=== PATIENT | female | born 1945 | race Caucasian/White ===

== ENCOUNTER → 2016-12-04 | Outpatient (CLI) | payer OTHER, MEDICARE ==
[~2016-12-04] MED LIST: ADVIN25050 INH; ATOR-22 PO; ATV5 PO; BNV150 PO; CHOL2000 PO; CITA10TA4 PO; CITA40TA4 PO; CLB200 PO; CLC100 PO; CLTP PO; CMBIN INH; GABA-113 PO; GABA1CAP4 PO; GADAVIST IV PRN; HYDR-5688 PO; IBUP-1050 PO; LYR50 PO; MDR4 PO; MELO7.5T5 PO; MTR/600 PO; MULT-506 PO; MULTTAB5 PO; NRN300 PO; NRN600 PO; NXM/40 PO; OMEG10007 PO; OXYC-57 PO; PRCUNK PO; PRED10TA; PRLSR20 PO; TIOTCAP INH; ZCR40 PO
--- NOTE | 2016-12-04 16:45 | DIAGNOSTIC IMAGING REPORT ---
MRI LUMBAR SPINE COMBINATION CLINICAL HISTORY: Extreme low back pain with left hip radiculopathy. TECHNIQUE: Sagittal and axial T1, T2 and STIR images were obtained. Images were obtained before and after the administration of 5 cc of intravenous Gadavist. COMPARISON STUDY: No previous studies for comparison. OBSERVATIONS: The vertebral bodies and posterior elements appear intact. There is no abnormal bony signal present to suggest a marrow replacement process. L1-2: No disc protrusions or extrusions. No evidence of spinal canal or neural foraminal compromise. L2-3: No disc protrusions or extrusions. No evidence of spinal canal or neural foraminal compromise. L3-4: There is a mild circumferential disc bulge. There is no significant spinal or foraminal stenosis L4-5: There is a mild circumferential disc bulge. There is minor triangular spinal canal narrowing. L5-S1: There is minor retrolisthesis of L5 on S1. There is a small central disc protrusion. There is no significant foraminal narrowing. The conus medullaris and cauda equina appear normal. 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 Postcontrast images reveal no pathologically enhancing lesions IMPRESSION: 1. Minor retrolisthesis of L5 on S1. Small central disc protrusion 2. Mild circumferential disc bulge at the L4-5 level. Electronically signed by: Wisam Martel M.D. 12/04/2016 4:44 PM Dictated Date/Time: 12/04/2016 4:40 PM
== END | disposition home or self-care (01) ==
LOC: C.MRI 14:51
PROVIDERS: ATTEND Orthopaedic Surgery Orthopaedic Surgery of the Spine
DX: M51.27 Other intervertebral disc displacement, lumbosacral region (principal)

== ENCOUNTER 2016-12-07 11:44 | Inpatient (IN) | payer OTHER, MEDICARE ==
[~2016-12-07] VITALS: Ht 160 cm; Wt 50.0 kg
[2016-12-07] VITALS (7 sets, daily range): BP systolic 128–135; BP diastolic 54–73; PULSE 71–96; TEMP 36.5–36.8; O2SAT 94–100; Ht 160 cm; Wt 50.0 kg
[~2016-12-07 11:44] MED LIST changes: -CHOL2000 PO; -CITA10TA4 PO; -CITA40TA4 PO; -GABA1CAP4 PO; -GADAVIST IV PRN; -HYDR-5688 PO; -IBUP-1050 PO; -LYR50 PO; -MDR4 PO; -MELO7.5T5 PO; -MTR/600 PO; -MULTTAB5 PO; -NRN300 PO; -NRN600 PO; -OXYC-57 PO; -PRED10TA; -PRLSR20 PO; -ZCR40 PO
[2016-12-07] MEDS ORDERED: SODIUM CHLORIDE 0.9% 1000ML 1,000 ML IV STA (11:58)
[2016-12-07] MEDS ORDERED: ONDANSETRON INJ 2 MG/ML 2 ML VIAL IV STA (11:58)
[2016-12-07] MEDS: MoRPHine SULFATE 4 MG/ML 1 ML CARP\\VIAL IV PRN ×2 (12:05→12:42)
--- NOTE | 2016-12-07 12:07 | EMERGENCY ROOM VISIT NOTE ---
History Report prepared by Garrett: Navjot Maharaj Under the Supervision of: Dr. Sal Huddleston D.O. First contact with patient: 11:51 Chief Complaint: SHORTNESS OF BREATH Stated Complaint: BACK PAIN, PAIN DOWN LEGS, SOB History of Present Illness The patient is a 71 year old female who presents to the Emergency Room with complaints of persistent severe lower back pain for the past two months. The pain radiates down her left leg and the left leg is also weak. The patient is here with shortness of breath secondary to her pain. The patient has had trouble eating, drinking, and sleeping secondary to pain. She has had intermittent chest tightness. She denies urinary symptoms. The patient was given a prescription of 5 mg Percocet from her PCP. She had an MRI three days ago with Quinn Degroot. The patient has a history of COPD and wears oxygen most of the time. She has breathing treatments at home. She denies cancer history. The patient has had lower back surgery with Dr. Downey. The patient does occasionally smoke. Source of History: patient Onset: two months Position: back (lower) Symptom Intensity: severe Timing: other (persistent) Associated Symptoms: + SOB, + chest pain, No urinary symptoms Review of Systems See HPI for pertinent positives & negatives. A total of 10 systems reviewed and were otherwise negative. Past Medical & Surgical Medical Problems: (1) COPD (chronic obstructive pulmonary disease) Surgical Problems: (1) Previous back surgery Family History Patient reports no known family medical history. Social History Smoking Status: Current Some Day Smoker Housing Status: lives with family Current/Historical Medications Scheduled Cholecalciferol (Vitamin D3), 1 CAP PO DAILY Citalopram Hydrobromide (Citalopram Hydrobromide), 1 TAB PO DAILY Gabapentin (Gabapentin), 1 CAP PO BID Meloxicam (Mobic), 7.5 MG PO DAILY Multiple Vitamins W/ Minerals (Centrum), 1 TAB PO DAILY Omeprazole (Prilosec), 20 MG PO DAILY Simvastatin (Simvastatin), 1 TAB PO HS Scheduled PRN Ibuprofen (Ibuprofen), 1 TAB PO Q6 PRN for Pain Oxycodone/Acetaminophen 5MG/325MG (Percocet 5MG/325MG), 1 TABLET PO Q6H PRN for Pain Allergies Coded Allergies: No Known Allergies (Verified , NONE, 3/2/17) Physical Exam Vital Signs Date Time Temp Pulse Resp B/P Pulse Ox O2 Delivery O2 Flow Rate FiO2 12/07/16 13:33 88 22 135/54 95 Nasal Cannula 3.0 12/07/16 12:25 89 12/07/16 12:15 97 Nasal Cannula 3.0 12/07/16 11:47 36.5 113 24 165/80 89 3.0 Physical Exam GENERAL: Patient is awake, alert, very anxious and uncomfortable appearing, appears to be in significant pain. EYES: The conjunctivae are clear. The pupils are round and reactive. EARS, NOSE, MOUTH AND THROAT: The nose is without any evidence of any deformity. Mucous membranes are moist tongue is midline NECK: The neck is nontender and supple. RESPIRATORY: Lung sounds are diminished throughout with expiratory wheezing in both chu, significant tachypnea and conversational dyspnea noted. Suprasternal retractions noted. CARDIOVASCULAR: Tachycardic but regular no definite murmur noted to auscultation. GASTROINTESTINAL: The abdomen is soft. Bowel sounds are present in all quadrants. Abdomen is nontender BACK: Significant lumbar tenderness to palpation, range of motion appeared limited secondary to severe pain. MUSCULOSKELETAL/EXTREMITIES: There is no evidence of gross deformity full range of motion is noted in the hips and shoulders SKIN: There is no obvious evidence of any rash. There are no petechiae, pallor or cyanosis noted. NEUROLOGIC: Patient is awake alert and oriented x3, patellar reflex 2+ bilaterally, Achilles tendon reflex absent bilaterally, great toe raise symmetric. Medical Decision & Procedures ER Provider Diagnostic Interpretation: X-ray results as stated below per interpretation by me and the radiologist. CHEST ONE VIEW PORTABLE CLINICAL HISTORY: Shortness of breath. COMPARISON STUDY: Chest radiograph November 12, 2008. FINDINGS: Lung volumes are normal. No pleural effusion is present. No consolidation is identified to suggest pneumonia. There is no evidence of pulmonary edema. Cardiomediastinal silhouette is normal. Equivocal small right apical pneumothorax is probably artifactual. IMPRESSION: Equivocal small right apical pneumothorax which is likely artifactual. If persistent symptoms, short-term radiographic follow up is recommended. Electronically signed by: Ryan Joel M.D. 12/07/2016 1:07 PM Dictated Date/Time: 12/07/2016 1:02 PM Laboratory Results 12/07/16 11:55 Red Blood Count 4.27, Mean Corpuscular Volume 95.8, Mean Corpuscular Hemoglobin 31.6, Mean Corpuscular Hemoglobin Concent 33.0, Mean Platelet Volume 10.3, Neutrophils (%) (Auto) 75.6, Lymphocytes (%) (Auto) 18.1, Monocytes (%) (Auto) 5.8, Eosinophils (%) (Auto) 0.2, Basophils (%) (Auto) 0.1, Neutrophils # (Auto) 7.66, Lymphocytes # (Auto) 1.84, Monocytes # (Auto) 0.59, Eosinophils # (Auto) 0.02, Basophils # (Auto) 0.01 12/07/16 11:55 Test 12/07/16 11:55 White Blood Count 10.14 K/uL (4.8-10.8) Red Blood Count 4.27 M/uL (4.2-5.4) Hemoglobin 13.5 g/dL (12.0-16.0) Hematocrit 40.9 % (37-47) Mean Corpuscular Volume 95.8 fL (80-100) Mean Corpuscular Hemoglobin 31.6 pg (25-34) Mean Corpuscular Hemoglobin Concent 33.0 g/dl (32-36) Platelet Count 323 K/uL (130-400) Mean Platelet Volume 10.3 fL (7.4-10.4) Neutrophils (%) (Auto) 75.6 % Lymphocytes (%) (Auto) 18.1 % Monocytes (%) (Auto) 5.8 % Eosinophils (%) (Auto) 0.2 % Basophils (%) (Auto) 0.1 % Neutrophils # (Auto) 7.66 K/uL (1.4-6.5) Lymphocytes # (Auto) 1.84 K/uL (1.2-3.4) Monocytes # (Auto) 0.59 K/uL (0.11-0.59) Eosinophils # (Auto) 0.02 K/uL (0-0.5) Basophils # (Auto) 0.01 K/uL (0-0.2) RDW Standard Deviation 48.6 fL (36.4-46.3) RDW Coefficient of Variation 13.8 % (11.5-14.5) Immature Granulocyte % (Auto) 0.2 % Immature Granulocyte # (Auto) 0.02 K/uL (0.00-0.02) Prothrombin Time 10.8 SECONDS (9.0-12.0) Prothromb Time International Ratio 1.0 (0.9-1.1) Activated Partial Thromboplast Time 26.3 SECONDS (21.0-31.0) Partial Thromboplastin Ratio 1.0 Anion Gap 7.0 mmol/L (3-11) Est Creatinine Clear Calc Drug Dose 59.0 ml/min Estimated GFR () 101.7 Estimated GFR (Non- 87.8 BUN/Creatinine Ratio 21.0 (10-20) Calcium Level 9.7 mg/dl (8.5-10.1) Total Bilirubin 0.7 mg/dl (0.2-1) Direct Bilirubin 0.2 mg/dl (0-0.2) Aspartate Amino Transf (AST/SGOT) 16 U/L (15-37) Alanine Aminotransferase (ALT/SGPT) 21 U/L (12-78) Alkaline Phosphatase 70 U/L (45-117) Total Creatine Kinase 152 U/L (26-192) Creatine Kinase MB 2.4 ng/ml (0.5-3.6) Creatine Kinase MB Ratio 1.6 (0-3.0) Troponin I < 0.015 ng/ml (0-0.045) Total Protein 9.0 gm/dl (6.4-8.2) Albumin 4.0 gm/dl (3.4-5.0) Lipase 85 U/L (73-393) Laboratory results per my review. Medications Administered Medications (Trade) Dose Ordered Sig/Peyman Route Start Time Stop Time Status Last Admin Dose Admin Sodium Chloride (Nss 1000ml) 1,000 ml @ 999 mls/hr Q1H1M STAT IV 12/07/16 11:58 12/07/16 12:58 DC 12/07/16 12:04 999 MLS/HR Ondansetron HCl (Zofran Inj) 4 mg NOW STAT IV 12/07/16 11:58 12/07/16 12:00 DC 12/07/16 12:05 4 MG Morphine Sulfate (MoRPHine SULFATE INJ) 4 mg Q15M PRN IV 12/07/16 12:00 12/07/16 14:59 DC 12/07/16 12:42 4 MG ECG Indication: SOB/dyspnea Rate (beats per minute): 95 Rhythm: normal sinus Findings: no acute ischemic change, no ectopy Comparison ECG Date: 12 Nov 2008 Change: no significant change ED Course 1155: The patient was evaluated in room A4b. A complete history and physical examination were performed. 1158: Zofran 4 mg Iv, NSS 1000 ml @ 999 mls/hr. 1200: Morphine Sulfate 4 mg IV. 1221: [facility] The [facility] will be evaluated. Medical Decision Prior records/ancillary studies reviewed. Triage Nursing notes reviewed. Additional history obtained from family. The patient's history was concerning for back pain. Differential diagnosis: Etiologies such as musculoskeletal, disc herniation, fracture, aortic disease, metastatic disease, cord compression, discitis, infection, renal colic, gastrointestinal, acute exacerbation of chronic back pain, sciatica, cauda equina, as well as others were entertained. The patient is a 71-year-old female who presented to the emergency department for an evaluation of severe back pain and difficulty breathing. The patient has a history of COPD and states it when her back pain becomes very severe she has very significant shortness of breath issues. The patient was treated with a DuoNeb in the emergency department. She was also treated with IV fluids. She was also given IV pain medication. I discussed the patient's laboratory and radiographic studies with her. Her breathing significantly improved. I discussed the patient's condition with the [facility]. They have agreed to evaluate the patient in the emergency department for further management and disposition. Consults Time Called: 1215 Consulting Physician: Dr. Hazel [facility] Returned Call: 1221 1221: Spoke with Dr. Hazel [facility]. The patient will be evaluated. Impression Primary Impression: Severe low back pain Additional Impressions: Lumbar radiculopathy COPD exacerbation Scribe Attestation The scribe's documentation has been prepared under my direction and personally reviewed by me in its entirety. I confirm that the note above accurately reflects all work, treatment, procedures, and medical decision making performed by me. Departure Information Dispostion Being Evaluated By Hospitalist Referrals Arthur Srivastava M.D. (PCP) Patient Instructions My [facility] Problem Qualifiers
[2016-12-07 12:09] LABS: BASO % 0.1 %; BASO ABS # 0.01 K/uL (0-0.2); COMPLETE YES; EOS % 0.2 %; HEMATOCRIT 40.9 % (37-47); IG% 0.2 %; LYMPH % 18.1 %; LYMPH ABS # 1.84 K/uL (1.2-3.4); MEAN CELL VOLUME 95.8 fL (80-100); MEAN CORPUSCULAR HEMOGLOBIN 31.6 pg (25-34); MEAN PLATELET VOLUME 10.3 fL (7.4-10.4); MONO % 5.8 %; NEUT % 75.6 %; PLATELET COUNT 323 K/uL (130-400); RED BLOOD COUNT 4.27 M/uL (4.2-5.4); WHITE BLOOD COUNT 10.14 K/uL (4.8-10.8)
[2016-12-07 12:24] LABS: PROTHROMBIN TIME (PATIENT) 10.8 SECONDS (9.0-12.0)
[2016-12-07 12:29] LABS: ALT/SGPT 21 U/L (12-78); AST/SGOT 16 U/L (15-37); BLOOD UREA NITROGEN 15 mg/dl (7-18); CALCIUM 9.7 mg/dl (8.5-10.1); CARBON DIOXIDE 30 mmol/L (21-32); CHLORIDE 102 mmol/L (98-107); GLUCOSE 104 mg/dl (70-99); POTASSIUM 4.3 mmol/L (3.5-5.1); SODIUM 139 mmol/L (136-145)
[2016-12-07 12:34] LABS: ALKALINE PHOSPHATASE 70 U/L (45-117); CKMB/CK RATIO 1.6 (0-3.0)
[2016-12-07] MEDS ORDERED: ZCR40 PO (13:06)
[2016-12-07] MEDS ORDERED: PRLSR20 PO (13:06)
[2016-12-07] MEDS ORDERED: CITA10TA4 PO (13:06)
[2016-12-07] MEDS ORDERED: GABA1CAP4 PO (13:06)
[2016-12-07] MEDS ORDERED: OXYC-57 PO (13:06)
[2016-12-07] MEDS ORDERED: CHOL2000 PO (13:06)
[2016-12-07] MEDS ORDERED: MULTTAB5 PO (13:06)
[2016-12-07] MEDS ORDERED: MELO7.5T5 PO (13:06)
[2016-12-07] MEDS ORDERED: MTR/600 PO (13:07)
--- NOTE | 2016-12-07 13:08 | DIAGNOSTIC IMAGING REPORT ---
CHEST ONE VIEW PORTABLE CLINICAL HISTORY: Shortness of breath. COMPARISON STUDY: Chest radiograph November 12, 2008. FINDINGS: Lung volumes are normal. No pleural effusion is present. No consolidation is identified to suggest pneumonia. There is no evidence of pulmonary edema. Cardiomediastinal silhouette is normal. Equivocal small right apical pneumothorax is probably artifactual. IMPRESSION: Equivocal small right apical pneumothorax which is likely artifactual. If persistent symptoms, short-term radiographic follow up is recommended. Electronically signed by: Ryan Joel M.D. 12/07/2016 1:07 PM Dictated Date/Time: 12/07/2016 1:02 PM
[2016-12-07] MEDS ORDERED: ALUMINUM/MAGNESIUM/SIMETH (MAALOX MAX) 30 ML UDC PO PRN (14:00)
[2016-12-07] MEDS ORDERED: POLYETHYLENE (MIRALAX) 17 GM PACK PO PRN (14:00)
[2016-12-07] MEDS ORDERED: HydrALAZINE HCL 20 MG/ML VIAL IV. PRN (14:00)
[2016-12-07] MEDS ORDERED: MAGNESIUM HYDROXIDE SUSP 30 ML UDC PO PRN (14:00)
[2016-12-07] MEDS ORDERED: ACETAMINOPHEN 325 MG TAB PO PRN (14:00)
[2016-12-07] MEDS ORDERED: IBUPROFEN 600 MG TAB PO PRN (14:00)
[2016-12-07] MEDS ORDERED: MoRPHine SULFATE 2 MG/ML CARP IV PRN (14:00)
[2016-12-07] MEDS ORDERED: ALBUT/IPRATROP 3MG/0.5MG NEB 3 ML VIAL INH PRN ×2 (14:00→15:15)
[2016-12-07] MEDS ORDERED: ONDANSETRON INJ 2 MG/ML 2 ML VIAL IV PRN (14:00)
--- NOTE | 2016-12-07 14:20 | History and Physical ---
History & Physical Date & Time of Service: Dec 07, 2016 at 13:58 Chief Complaint: Back Pain, Pain Down Legs, Sob Primary Care Physician: Arthur Srivastava M.D. History of Present Illness Source: patient, family Patient is a pleasant 71-year-old female, with past medical history of COPD, hyperlipidemia, GERD, chronic lower back pain, and depression, who presented to the ED because of severe lower back pain radiating to left lower extremity. Patient was seen by Dr. Downey last week and an MRI was ordered. Patient was to follow-up with Dr. Downey on 12/08. Today, lower back pain became so severe she presented to the ED. Pain radiates down left extremity to ankle causing weakness. She is having trouble ambulating. Per family present, pain has worsened since starting PT at the beginning of November. Patient admits to shortness of breath, but states this is due to severe lower back pain. She denies any urinary or bowel incontinence. Currently, patient is on 3 L of O2 supplement. She uses 3 L at home all the time. She denies any cough or sputum production. Patient denies any fever, chills, sweats, lightheadedness, dizziness , vision changes, CP, palpitations, edema, wheezing, cough, abdominal pain, nausea, vomiting, diarrhea, urinary symptoms, melena, anxiety/depression, active bleeding, or new skin discoloration/changes. Past Medical/Surgical History Medical Problems: 1. COPD 2. Hyperlipidemia 3. GERD 4. Chronic lower back pain 5. Depression 6. Tobacco abuse Surgical hx: 1. Back surgery 2. Tubal ligation 3. Hysterectomy Family History 1. Thyroid cancer Social History Smoking Status: Current Every Day Smoker Marital Status: Housing status: lives with family Immunizations History of Influenza Vaccine: Yes History of Tetanus Vaccine?: Yes History of Pneumococcal: Yes Pneumococcal Date: Jun 24, 2008 History of Hepatitis B Vaccine: No Allergies Coded Allergies: No Known Allergies (Verified , NONE, 12/07/16) Home Medications Scheduled Cholecalciferol (Vitamin D3), 1 CAP PO DAILY Citalopram Hydrobromide (Citalopram Hydrobromide), 1 TAB PO DAILY Gabapentin (Gabapentin), 1 CAP PO BID Meloxicam (Mobic), 7.5 MG PO DAILY Multiple Vitamins W/ Minerals (Centrum), 1 TAB PO DAILY Omeprazole (Prilosec), 20 MG PO DAILY Simvastatin (Simvastatin), 1 TAB PO HS Scheduled PRN Ibuprofen (Ibuprofen), 1 TAB PO Q6 PRN for Pain Oxycodone/Acetaminophen 5MG/325MG (Percocet 5MG/325MG), 1 TABLET PO Q6H PRN for Pain Physical Exam Vital Signs Date Time Temp Pulse Resp B/P Pulse Ox O2 Delivery O2 Flow Rate FiO2 12/07/16 13:33 88 22 135/54 95 Nasal Cannula 3.0 12/07/16 12:25 89 12/07/16 12:15 97 Nasal Cannula 3.0 12/07/16 11:47 36.5 113 24 165/80 89 3.0 General Appearance: no apparent distress, + thin Head: normocephalic, atraumatic Eyes: normal inspection, PERRL ENT: hearing grossly normal Neck: supple Respiratory/Chest: no respiratory distress, no accessory muscle use, + decreased breath sounds (throughout ) Cardiovascular: regular rate, rhythm, no edema, normal peripheral pulses Abdomen/GI: normal bowel sounds, non tender, soft Back: normal inspection Extremities/Musculoskelatal: no calf tenderness, no pedal edema, + pertinent finding (weakness to left lower extremity ) Neurologic/Psych: alert, normal mood/affect, oriented x 3 Skin: normal color, warm/dry, no rash Diagnostics Laboratory Results Results Past 24 Hours Test 12/07/16 11:55 Range/Units White Blood Count 10.14 4.8-10.8 K/uL Red Blood Count 4.27 4.2-5.4 M/uL Hemoglobin 13.5 12.0-16.0 g/dL Hematocrit 40.9 37-47 % Mean Corpuscular Volume 95.8 80-100 fL Mean Corpuscular Hemoglobin 31.6 25-34 pg Mean Corpuscular Hemoglobin Concent 33.0 32-36 g/dl Platelet Count 323 130-400 K/uL Mean Platelet Volume 10.3 7.4-10.4 fL Neutrophils (%) (Auto) 75.6 % Lymphocytes (%) (Auto) 18.1 % Monocytes (%) (Auto) 5.8 % Eosinophils (%) (Auto) 0.2 % Basophils (%) (Auto) 0.1 % Neutrophils # (Auto) 7.66 1.4-6.5 K/uL Lymphocytes # (Auto) 1.84 1.2-3.4 K/uL Monocytes # (Auto) 0.59 0.11-0.59 K/uL Eosinophils # (Auto) 0.02 0-0.5 K/uL Basophils # (Auto) 0.01 0-0.2 K/uL RDW Standard Deviation 48.6 36.4-46.3 fL RDW Coefficient of Variation 13.8 11.5-14.5 % Immature Granulocyte % (Auto) 0.2 % Immature Granulocyte # (Auto) 0.02 0.00-0.02 K/uL Prothrombin Time 10.8 9.0-12.0 SECONDS Prothromb Time International Ratio 1.0 0.9-1.1 Activated Partial Thromboplast Time 26.3 21.0-31.0 SECONDS Partial Thromboplastin Ratio 1.0 Sodium Level 139 136-145 mmol/L Potassium Level 4.3 3.5-5.1 mmol/L Chloride Level 102 98-107 mmol/L Carbon Dioxide Level 30 21-32 mmol/L Anion Gap 7.0 3-11 mmol/L Blood Urea Nitrogen 15 7-18 mg/dl Creatinine 0.70 0.60-1.20 mg/dl Est Creatinine Clear Calc Drug Dose 59.0 ml/min Estimated GFR () 101.7 Estimated GFR (Non- 87.8 BUN/Creatinine Ratio 21.0 10-20 Random Glucose 104 70-99 mg/dl Calcium Level 9.7 8.5-10.1 mg/dl Total Bilirubin 0.7 0.2-1 mg/dl Direct Bilirubin 0.2 0-0.2 mg/dl Aspartate Amino Transf (AST/SGOT) 16 15-37 U/L Alanine Aminotransferase (ALT/SGPT) 21 12-78 U/L Alkaline Phosphatase 70 45-117 U/L Total Creatine Kinase 152 26-192 U/L Creatine Kinase MB 2.4 0.5-3.6 ng/ml Creatine Kinase MB Ratio 1.6 0-3.0 Troponin I < 0.015 0-0.045 ng/ml Total Protein 9.0 6.4-8.2 gm/dl Albumin 4.0 3.4-5.0 gm/dl Lipase 85 73-393 U/L Diagnostic Radiology CHEST ONE VIEW PORTABLE CLINICAL HISTORY: Shortness of breath. COMPARISON STUDY: Chest radiograph November 12, 2008. FINDINGS: Lung volumes are normal. No pleural effusion is present. No consolidation is identified to suggest pneumonia. There is no evidence of pulmonary edema. Cardiomediastinal silhouette is normal. Equivocal small right apical pneumothorax is probably artifactual. IMPRESSION: Equivocal small right apical pneumothorax which is likely artifactual. If persistent symptoms, short-term radiographic follow up is recommended. Electronically signed by: yRan Joel M.D. 12/07/2016 1:07 PM Dictated Date/Time: 12/07/2016 1:02 PM The status of this report is Signed. Draft = Not yet reviewed or approved by Radiologist. Signed = Reviewed and approved by Radiologist. MRI LUMBAR SPINE COMBINATION CLINICAL HISTORY: Extreme low back pain with left hip radiculopathy. TECHNIQUE: Sagittal and axial T1, T2 and STIR images were obtained. Images were obtained before and after the administration of 5 cc of intravenous Gadavist. COMPARISON STUDY: No previous studies for comparison. OBSERVATIONS: The vertebral bodies and posterior elements appear intact. There is no abnormal bony signal present to suggest a marrow replacement process. L1-2: No disc protrusions or extrusions. No evidence of spinal canal or neural foraminal compromise. L2-3: No disc protrusions or extrusions. No evidence of spinal canal or neural foraminal compromise. L3-4: There is a mild circumferential disc bulge. There is no significant spinal or foraminal stenosis L4-5: There is a mild circumferential disc bulge. There is minor triangular spinal canal narrowing. L5-S1: There is minor retrolisthesis of L5 on S1. There is a small central disc protrusion. There is no significant foraminal narrowing. The conus medullaris and cauda equina appear normal. 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 Postcontrast images reveal no pathologically enhancing lesions IMPRESSION: 1. Minor retrolisthesis of L5 on S1. Small central disc protrusion 2. Mild circumferential disc bulge at the L4-5 level. Electronically signed by: Wisam Martel M.D. 12/04/2016 4:44 PM Dictated Date/Time: 12/04/2016 4:40 PM The status of this report is Signed. Draft = Not yet reviewed or approved by Radiologist. Signed = Reviewed and approved by Radiologist. EKG CLOVER GOETZ ID:[id number] 07-DEC-2016 12:13:47 [facility] Normal sinus rhythm Possible Left atrial enlargement Borderline ECG When compared with ECG of 12-NOV-2008 11:39, No significant change was found 25mm/s 10mm/mV 150Hz 8.0 SP2 12SL 241 VICTOR MANUEL: 9 Referred by: ED Unconfirmed Vent. rate 95 BPM MN interval 148 ms QRS duration 78 ms QT/QTc 376/472 ms P-R-T axes 88 82 67 1945 (71 yr) Female Room:A4B Loc:15 Paralegal Internship:Frances Marquez ind: Impression Assessment and Plan 71-year-old female, with past medical history of COPD, hyperlipidemia, GERD, chronic lower back pain, and depression, who presented to the ED because of severe lower back pain radiating to left lower extremity. Acute on chronic lower back pain: - Admit med/surg - MRI on 12/04/16- Minor retrolisthesis of L5 on S1. Small central disc protrusion. Mild circumferential disc bulge at the L4-5 level. - Continue Gabapentin, Mobic, and Percocet PRN for pain management. IV Morphine added for severe pain. - Patient follows with Dr. Downey- consult orthopedics, appreciate recommendations - Follow PRP Chronic COPD: - Patient wears 3L O2 at all times - DuoNebs PRN - Continue inhalers - CXR- Equivocal small right apical pneumothorax which is likely artifactual. -- Chest CT - Follows with Ilan Calderon PA-C Tobacco abuse: Smokes 1 pack per day. Smoking cessation counselling Hyperlipidemia: Continue Simvastatin GERD: Protonix daily Depression: Continue Citalopram HTN, likely secondary to pain: Hydralazine 10 mg IV PRN GI Prophylaxis: Maalox PRN, IV Zofran PRN, Colace and/or Milk of Mag PRN DVT prophylaxis: LASHELL and SCDs. Hold anticoagulation pending orthopedic consult Code Status: LEVEL III, FUL- NO VENTILATION Dispo: From home, lives with [facility] of Care Med/Surg Resuscitation Status FULL NO MECH VENTILATION VTE Prophylaxis VTE Risk Assessment Done? Y/N: Yes Risk Level: Low Given or contraindicated: T.E.D. Stockings, SCD's
--- NOTE | 2016-12-07 14:34 | DIAGNOSTIC IMAGING REPORT ---
CHEST CT WITHOUT CONTRAST CT DOSE: 395.04 mGy.cm HISTORY: Abnormal chest x-ray small right pneumo seen on CXR TECHNIQUE: Multiaxial CT images of the chest were performed without contrast. COMPARISON: Chest x-ray same date FINDINGS: Lungs are clear. No evidence pneumothorax. Mild parenchymal fibrotic change most likely chronic. Slightly spiculated scarlike appearance right upper lung with a maximum dimension of 6 mm[address] A [address] follow-up is suggested. No significant hilar or mediastinal adenopathy. Limited evaluation of the upper abdomen is unremarkable. IMPRESSION: 1. Emphysematous change. 2. Mild chronic fibrotic change 3. Small spiculated density superior segment right upper lobe most likely related to parenchymal scar, although a [address] follow-up is suggested. Electronically signed by: Arthur Espitia M.D. 12/07/2016 2:32 PM Dictated Date/Time: 12/07/2016 2:28 PM
[2016-12-07] MEDS: MoRPHine SULFATE 2 MG/ML CARP IV PRN ×3 (15:36→21:43)
[2016-12-07] MEDS: ALBUT/IPRATROP 3MG/0.5MG NEB 3 ML VIAL INH SCH ×2 (16:00→19:48)
[2016-12-07] MEDS: OXYCODONE/ACETAMINOPHEN 5-325 TAB PO PRN (17:04)
[2016-12-07 19:29] LABS: URINE APPEARANCE CLEAR (CLEAR); URINE BILIRUBIN NEG (NEG); URINE COLOR YELLOW; URINE EPITHELIAL CELL AUTO 20-30 /lpf (0-5); URINE NITRITE NEG (NEG); URINE SPECIFIC GRAVITY 1.007 (1.000-1.030); UROBILINOGEN NEG (NEG)
[2016-12-07 19:43] LABS: MANUAL MICROSCOPIC REQUIRED? NO; REVIEW REQ? NO
[2016-12-07] MEDS: SIMVASTATIN 40 MG TAB PO SCH (20:59)
[2016-12-07] MEDS: GABAPENTIN 300 MG CAP PO SCH (20:59)
[2016-12-07] MEDS ORDERED: PROMETHAZINE HCL INJ 25 MG in SODIUM CHLORIDE 0.9% 50ML 50 ML IV PRN (21:30)
[2016-12-08] VITALS (8 sets, daily range): BP systolic 122–137; BP diastolic 66–71; PULSE 80–92; TEMP 36.4–36.5; O2SAT 96–99
[2016-12-08] MEDS: ALBUT/IPRATROP 3MG/0.5MG NEB 3 ML VIAL INH SCH ×5 (02:11→20:14)
[2016-12-08] MEDS: MoRPHine SULFATE 2 MG/ML CARP IV PRN ×5 (02:16→22:01)
[2016-12-08 08:07] LABS: BUN/CREATININE RATIO 16.7 (10-20); CALCIUM 9.1 mg/dl (8.5-10.1); CREATININE 0.66 mg/dl (0.60-1.20); MAGNESIUM 2.1 mg/dl (1.8-2.4); POTASSIUM 4.1 mmol/L (3.5-5.1)
[2016-12-08] MEDS ORDERED: PANTOprazole SOD 40 MG TAB PO SCH (09:00)
[2016-12-08] MEDS: MELOXICAM 7.5 MG TAB PO SCH (09:00)
[2016-12-08] MEDS: CITALOPRAM 20 MG TAB PO SCH (09:07)
[2016-12-08] MEDS: PANTOprazole SOD 40 MG TAB PO SCH (09:08)
[2016-12-08] MEDS: CEROVITE ADV FORMULA TAB PO SCH (09:08)
[2016-12-08] MEDS: GABAPENTIN 300 MG CAP PO SCH (09:08)
[2016-12-08] MEDS: CHOLECALCIFEROL 1000 INTER.UNIT TAB PO SCH (09:09)
[2016-12-08] MEDS: OXYCODONE/ACETAMINOPHEN 5-325 TAB PO PRN ×2 (12:48→20:02)
[2016-12-08] MEDS ORDERED: GABAPENTIN 300 MG CAP PO ONE (15:18)
[2016-12-08] MEDS ORDERED: GABAPENTIN 300 MG CAP PO SCH (15:30)
--- NOTE | 2016-12-08 15:32 | Hospitalist Progress Note ---
Hospitalist Progress Note Date of Service Dec 08, 2016. Subjective Pt evaluation today including: conversation w/ patient, physical exam, chart review, lab review, review of studies Pt having severe left sided sciatica pain currently, cannot get comfortable in either seated or standing position. Pain is shooting and comes from left buttocks down through anterior left thigh all the way to her left foot, some numbness left lateral leg, feels like it's going to collapse under her when she tries to ambulate. Has tried prednisone twice in the last 6 weeks and did not help. Was started on gabapentin 300 bid from an ER visit and hasn't noticed a difference and no reported side effects. Breathing is fine, no other complaints, no bowel /bladder issues Constitutional: No fever All Other Systems: Reviewed and Negative Objective Vital Signs Date Time Temp Pulse Resp B/P Pulse Ox O2 Delivery O2 Flow Rate FiO2 12/08/16 10:58 85 16 97 Nasal Cannula 3.0 12/08/16 09:57 Nasal Cannula 3.0 12/08/16 07:13 36.4 81 20 124/66 97 12/08/16 07:01 88 16 97 Nasal Cannula 3.0 12/08/16 02:11 80 18 99 Nasal Cannula 3.0 12/07/16 23:35 36.6 81 17 133/69 100 Nasal Cannula 3.0 12/07/16 23:05 Nasal Cannula 3.0 12/07/16 19:48 71 18 95 Nasal Cannula 3.0 12/07/16 17:00 78 22 94 Nasal Cannula 3.0 12/07/16 15:45 Nasal Cannula 3.0 Physical Exam General Appearance: WD/WN, + mild distress Eyes: normal inspection, sclerae normal ENT: hearing grossly normal Neck: trachea midline Respiratory/Chest: no respiratory distress, no accessory muscle use, + decreased breath sounds (throughout with occasional wheeze) Cardiovascular: regular rate, rhythm, no edema, no murmur Abdomen: normal bowel sounds, non tender, soft Extremities: normal inspection, no pedal edema, no calf tenderness, + pertinent finding (+TTP over left buttocks, strength 5/5 throughout lower exts but limited by pain on left sided testing, sensation intact to lt touch throughout upper and lower exts except decreased in medial left leg, DTRs hyperreflexive at 3+ in patellar bilat and with 3 beat clonus left Achilles, 2+ right Achilles, gait not tested) Neurologic/Psychiatric: alert, oriented x 3, + depressed affect Skin: normal color, warm/dry, no rash Laboratory Results Last 24 Hours Test 12/07/16 18:45 12/08/16 07:20 Urine Color YELLOW Urine Appearance CLEAR Urine pH 5.0 Urine Specific [place] 1.007 Urine Protein NEG Urine Glucose (UA) NEG Urine Ketones TRACE Urine Occult Blood NEG Urine Nitrite NEG Urine Bilirubin NEG Urine Urobilinogen NEG Urine Leukocyte Esterase TRACE Urine WBC (Auto) 1-5 /hpf Urine RBC (Auto) 0-4 /hpf Urine Hyaline Casts (Auto) 0 /lpf Urine Epithelial Cells (Auto) 20-30 /lpf Urine Bacteria (Auto) NEG Sodium Level 142 mmol/L Potassium Level 4.1 mmol/L Chloride Level 105 mmol/L Carbon Dioxide Level 31 mmol/L Anion Gap 6.0 mmol/L Blood Urea Nitrogen 11 mg/dl Creatinine 0.66 mg/dl Est Creatinine Clear Calc Drug Dose 62.6 ml/min Estimated GFR () 103.7 Estimated GFR (Non- 89.5 BUN/Creatinine Ratio 16.7 Random Glucose 109 mg/dl Calcium Level 9.1 mg/dl Magnesium Level 2.1 mg/dl Assessment and Plan 71-year-old female, with past medical history of COPD on home O2/Chronic respiratory failure, hyperlipidemia, GERD, chronic lower back pain, and depression, who presented to the ED because of severe lower left back pain radiating to left lower extremity. Acute on chronic lower back pain: - Admit med/surg - MRI on 12/04/16- Minor retrolisthesis of L5 on S1. Small central disc protrusion. Mild circumferential disc bulge at the L4-5 level. - Continue Gabapentin but increase dose to 600/300/600, continue Mobic, and Percocet PRN for pain management. IV Morphine added for severe pain. Has failed prednisone in past, failed PT--> exacerbated pain - Patient follows with Dr. Downey- consult orthopedics, appreciate recommendations -awaiting recommendations COPD, Chronic respiratory failure on home O2, Pulm nodule - Patient wears 3L O2 at all times - DuoNebs PRN - Continue inhalers - CXR- Equivocal small right apical pneumothorax which is likely artifactual. --Chest CT shows NO PTX but with: 1. Emphysematous change. 2. Mild chronic fibrotic change 3. Small spiculated density superior segment right upper lobe most likely related to parenchymal scar, although a [address] follow-up is suggested. - Follows with Ilan Calderon PA-C Tobacco abuse: Smokes 1 pack per day. Smoking cessation counselling Hyperlipidemia: Continue Simvastatin GERD: Protonix daily Depression: Continue Citalopram HTN, likely secondary to pain: Hydralazine 10 mg IV PRN GI Prophylaxis: Maalox PRN, IV Zofran PRN, Colace and/or Milk of Mag PRN DVT prophylaxis: LASHELL and SCDs. Hold anticoagulation pending orthopedic consult Code Status: LEVEL III, FUL- NO VENTILATION Dispo: From home, lives with PT/OT consult
[2016-12-08] MEDS: SIMVASTATIN 40 MG TAB PO SCH (20:03)
[2016-12-08] MEDS: GABAPENTIN 600 MG TAB PO SCH (20:03)
[2016-12-09] VITALS (8 sets, daily range): BP systolic 109–122; BP diastolic 61–75; PULSE 84–98; TEMP 36.6–36.8; O2SAT 93–98
[2016-12-09] MEDS: OXYCODONE/ACETAMINOPHEN 5-325 TAB PO PRN ×2 (05:09→21:50)
[2016-12-09 07:48] LABS: BUN/CREATININE RATIO 18.8 (10-20); CALCIUM 8.9 mg/dl (8.5-10.1); CREATININE 0.62 mg/dl (0.60-1.20); POTASSIUM 4.1 mmol/L (3.5-5.1)
[2016-12-09] MEDS: ALBUT/IPRATROP 3MG/0.5MG NEB 3 ML VIAL INH SCH ×4 (08:01→20:01)
[2016-12-09] MEDS: CITALOPRAM 20 MG TAB PO SCH (08:56)
[2016-12-09] MEDS: CEROVITE ADV FORMULA TAB PO SCH (08:57)
[2016-12-09] MEDS: PANTOprazole SOD 40 MG TAB PO SCH (08:58)
[2016-12-09] MEDS: GABAPENTIN 600 MG TAB PO SCH ×2 (08:58→21:51)
[2016-12-09] MEDS: CHOLECALCIFEROL 1000 INTER.UNIT TAB PO SCH (08:59)
[2016-12-09] MEDS: MELOXICAM 7.5 MG TAB PO SCH (09:00)
--- NOTE | 2016-12-09 09:01 | CONSULTATION REPORT ---
DATE OF CONSULTATION: 12/09/2016 DATE OF CONSULTATION: 12/09/2016. CHIEF COMPLAINT: Low back pain with radicular complaints. HISTORY OF PRESENT ILLNESS: Ms. Robledo is a patient of Dr. Downey'madalyn. She has been having ongoing pain in the lower portion of her back and radicular complaints as well. She was seen in the office and MRI was ordered. Unfortunately, her pain has gotten to the point where she was uncontrolled. She reported to the Emergency Room and has been admitted under medical services. The pain is still quite intense. It does not seem to be much better at this point. Her left leg is worse than her right and feels that that left leg is weak. She has had injections in the past, but it has been almost 9 years since her last injection. She denies any other numbness, tingling or paresthesias. PAST MEDICAL HISTORY: Significant for COPD, hyperlipidemia, chronic lower back pain, depression, tobacco abuse. She has had previous back surgeries, tubal ligation, hysterectomy. SOCIAL HISTORY: She has a family history of thyroid cancer. She is a current everyday smoker. She is and lives with family. ALLERGIES: None. MEDICATIONS: Include vitamin D3, citalopram, Neurontin, Meloxicam, multivitamins, omeprazole, simvastatin, ibuprofen and occasional oxycodone. PHYSICAL EXAMINATION: GENERAL: She is alert and oriented. She is able to answer questions appropriately. She has full range of motion of the hips and knees. Strength and sensation are intact. ABDOMEN: Soft, nontender. EXTREMITIES: Calves supple and nontender. RADIOGRAPHIC IMAGES: MRI available of her lumbar spine reveals retrolisthesis L5-S1 with a small central disc protrusion. There is also degeneration and facet arthropathy at L4-L5. ASSESSMENT: The patient has modest findings on her MRI with significant chronic lower back pain. PLAN: At this point, there is no indication for surgical approach. I would recommend continued PT, OT to get her up and moving, continued pain control efforts. If she is not significantly improved with this then pain management may be consulted for possible injections. This plan was discussed with Dr. Downey and will follow up as an outpatient.
[2016-12-09] MEDS: MoRPHine SULFATE 2 MG/ML CARP IV PRN ×2 (10:23→14:12)
--- NOTE | 2016-12-09 13:11 | Hospitalist Progress Note ---
Hospitalist Progress Note Date of Service Dec 09, 2016. (Deana Chaudhari PA-C) Subjective Pt evaluation today including: conversation w/ patient, physical exam, chart review, lab review, review of studies, review of inpatient medication list Pain: Severe, radiation down left leg PO Intake: Good Voiding: no voiding problems The patient was seen and examined this morning. Patient reports pain is severe , radiation down the left lower leg. Pain exacerbated by movement,. Pt is unsure if pain has improved with dosage increase of gabapentin. She was seen by orthopedics who do not recommend surgical intervention at this time, instead recs include PT/OT. The patient is not interested in physical therapy, she most recently went in October stopped going due to increased pain during her last 2 sessions. She reports she refuses to go back to [facility] physical therapy. The patient is agreeable to increasing gabapentin and changes of other medications. She denies saddle anesthesia, urinary retention, incontinence of bowels or bladder. All Other Systems: Reviewed and Negative (other than listed above) (Deana Chaudhari PA-C) Objective Vital Signs Date Time Temp Pulse Resp B/P Pulse Ox O2 Delivery O2 Flow Rate FiO2 12/09/16 11:32 92 18 93 Nasal Cannula 3.0 12/09/16 08:01 86 18 97 Nasal Cannula 3.0 12/09/16 07:45 98 Nasal Cannula 3.0 12/09/16 07:22 36.6 84 16 111/75 98 Nasal Cannula 4.0 12/08/16 23:33 Nasal Cannula 3.0 12/08/16 23:05 36.5 87 16 122/68 98 Nasal Cannula 3.0 12/08/16 20:15 88 18 98 Nasal Cannula 3.0 12/08/16 19:12 Nasal Cannula 3.0 12/08/16 15:37 36.4 92 18 137/71 96 Nasal Cannula 3.0 12/08/16 15:19 88 16 96 Nasal Cannula 3.0 (Deana Chaudhari PA-C) Physical Exam General Appearance: WD/WN, + moderate distress, + thin Eyes: PERRL, EOMI ENT: hearing grossly normal, pharynx normal Neck: supple, no JVD Respiratory/Chest: lungs clear, normal breath sounds, no respiratory distress, no accessory muscle use Cardiovascular: regular rate, rhythm, no murmur Abdomen: normal bowel sounds, non tender, soft, no organomegaly Extremities: no pedal edema, no calf tenderness, + pertinent finding ( decreased range of motion left hip flexor, tenderness of the anterior thigh) Neurologic/Psychiatric: alert, oriented x 3, + pertinent finding (strength left lower extremity 4 /5, right lower extremity 5/5. Upper extremities with equal strength bilaterally) Skin: normal color, warm/dry (Deana Chaudhari PA-C) Laboratory Results Last 24 Hours Test 12/09/16 06:55 Sodium Level 142 mmol/L Potassium Level 4.1 mmol/L Chloride Level 103 mmol/L Carbon Dioxide Level 34 mmol/L Anion Gap 5.0 mmol/L Blood Urea Nitrogen 12 mg/dl Creatinine 0.62 mg/dl Est Creatinine Clear Calc Drug Dose 66.6 ml/min Estimated GFR () 105.9 Estimated GFR (Non- 91.4 BUN/Creatinine Ratio 18.8 Random Glucose 104 mg/dl Calcium Level 8.9 mg/dl (Deana Chaudhari PA-C) Assessment and Plan 71-year-old female, with past medical history of COPD on home O2/Chronic respiratory failure, hyperlipidemia, GERD, chronic lower back pain, and depression, who presented to the ED because of severe lower left back pain radiating to left lower extremity. Radicular Back Pain - MRI on 12/04/16- Minor retrolisthesis of L5 on S1. Small central disc protrusion. Mild circumferential disc bulge at the L4-5 level. - Ortho has seen the patient and reports no surgical intervention be done, we' ll plan on doing PT/OT and continued pain control efforts - Pain management with: Gabapentin at 600/300/600, continue Mobic, and Percocet PRN for pain management. IV Morphine added for severe pain. Has failed prednisone in past, failed PT--> exacerbated pain - Will order flexeril for muscle spasm and see if this helps - Patient has had injections in the past may be a candidate for future injections if pain not controlled with regimen per ortho. - Patient will need outpt follow-up with Dr. Coronado as an outpatient within 2- 4 weeks - PT/OT consulted: Patient is refusing therapy at [facility] and she attended sessions there in October and reports that this worsened her condition. Discussion regarding home health physical therapy was held and the patient is agreeable to this. COPD, Chronic respiratory failure on home O2, Pulm nodule - Patient wears 3L O2 at all times - DuoNebs PRN - Continue inhalers - CXR- Equivocal small right apical pneumothorax which is likely artifactual. --Chest CT shows NO PTX but with: 1. Emphysematous change. 2. Mild chronic fibrotic change 3. Small spiculated density superior segment right upper lobe most likely related to parenchymal scar, although a [address] follow-up is suggested. - Follows with Ilan Calderon PA-C Tobacco abuse: Smokes 1 pack per day. Smoking cessation counselling Hyperlipidemia: Continue Simvastatin GERD: Protonix daily Depression: Continue Citalopram HTN, likely secondary to pain: Hydralazine 10 mg IV PRN - has not required this. GI Prophylaxis: Maalox PRN, IV Zofran PRN, Colace and/or Milk of Mag PRN DVT ppxs: - LASHELL and SCDs. Can start on heparin sq BID since not a surgical candidate if likely to remain in the hospital or if unable to get OOB. Code Status: LEVEL III, FUL- NO VENTILATION Dispo: From home, lives with , will need outpatient PT/OT referral, follow up with Dr. Coronado within 2-4 weeks. (Deana Chaudhari PA-C) Reviewed: Pt Seen/Exam by Me (Xiomy Cortez MD) History Physician Parking Manager Supervision Note: I interviewed and examined the patient. Discussed with TWIN Chaudhari and agree with findings and plan as documented in the note. Any exceptions or clarifications are listed here: Remains with pain, willing too try flexeril and increased morphine. Does have pain in anterior chest with coughing that is going on since yesterdya. usually takes motrin every day and this was stopped yesterday as she was also on Mobic Vitals reviewed Thin, NAD RRR no mgr, +TTP over costochondral junction Diminished BS throughout, occasional wheezes Ext no edema Start flexeril, increase morphine to 4mg while awaiting gabapentin higher dose to help PT/OT evals tomorrow and hopeful for dc to home if pain manageable -Pain Man consult as outpt -restart ibuprofen in AMs as she takes at home which may help the inflammation in her costochondritis Documented By: Xiomy Cortez (Xiomy Cortez MD) Assessment/Plan 71-year-old female, with past medical history of COPD on home O2/Chronic respiratory failure, hyperlipidemia, GERD, chronic lower back pain, and depression, who presented to the ED because of severe lower left back pain radiating to left lower extremity. Acute on chronic lower back pain: - Admit med/surg - MRI on 12/04/16- Minor retrolisthesis of L5 on S1. Small central disc protrusion. Mild circumferential disc bulge at the L4-5 level. - Continue Gabapentin but increase dose to 600/300/600, continue Mobic, and Percocet PRN for pain management. IV Morphine added for severe pain. Has failed prednisone in past, failed PT--> exacerbated pain - Patient follows with Dr. Downey- consult orthopedics, appreciate recommendations -awaiting recommendations COPD, Chronic respiratory failure on home O2, Pulm nodule - Patient wears 3L O2 at all times - DuoNebs PRN - Continue inhalers - CXR- Equivocal small right apical pneumothorax which is likely artifactual. --Chest CT shows NO PTX but with: 1. Emphysematous change. 2. Mild chronic fibrotic change 3. Small spiculated density superior segment right upper lobe most likely related to parenchymal scar, although a [address] follow-up is suggested. - Follows with Ilan Calderon PA-C Tobacco abuse: Smokes 1 pack per day. Smoking cessation counselling Hyperlipidemia: Continue Simvastatin GERD: Protonix daily Depression: Continue Citalopram HTN, likely secondary to pain: Hydralazine 10 mg IV PRN GI Prophylaxis: Maalox PRN, IV Zofran PRN, Colace and/or Milk of Mag PRN DVT prophylaxis: LASHELL and SCDs. Hold anticoagulation pending orthopedic consult Code Status: LEVEL III, FUL- NO VENTILATION Dispo: From home, lives with PT/OT consult (Xiomy Cortez MD)
[2016-12-09] MEDS: GABAPENTIN 300 MG CAP PO SCH (14:13)
[2016-12-09] MEDS ORDERED: CYCLOBENZAPRINE HCL 5 MG TAB PO PRN ×2 (14:45→17:45)
[2016-12-09] MEDS ORDERED: GABAPENTIN 300 MG CAP PO SCH (15:00)
[2016-12-09] MEDS ORDERED: POLYETHYLENE (MIRALAX) 17 GM PACK PO ONE (18:00)
[2016-12-09] MEDS ORDERED: MoRPHine SULFATE 2 MG/ML CARP IV PRN (18:00)
[2016-12-09] MEDS: SIMVASTATIN 40 MG TAB PO SCH (21:51)
[2016-12-09] MEDS: ENOXAPARIN 30 MG/0.3 ML SYR SQ SCH (21:51)
[2016-12-10] VITALS (9 sets, daily range): BP systolic 106–163; BP diastolic 66–78; PULSE 81–100; TEMP 36.4–36.7; O2SAT 96–100
[2016-12-10] MEDS: OXYCODONE/ACETAMINOPHEN 5-325 TAB PO PRN ×3 (05:55→23:28)
[2016-12-10 07:04] LABS: BUN/CREATININE RATIO 27.3 (10-20); CALCIUM 9.4 mg/dl (8.5-10.1); CREATININE 0.63 mg/dl (0.60-1.20); POTASSIUM 4.1 mmol/L (3.5-5.1)
[2016-12-10] MEDS: ALBUT/IPRATROP 3MG/0.5MG NEB 3 ML VIAL INH SCH ×4 (07:49→19:20)
[2016-12-10] MEDS: IBUPROFEN 600 MG TAB PO SCH (08:48)
[2016-12-10] MEDS: CITALOPRAM 20 MG TAB PO SCH (08:48)
[2016-12-10] MEDS: CHOLECALCIFEROL 1000 INTER.UNIT TAB PO SCH (08:49)
[2016-12-10] MEDS: GABAPENTIN 600 MG TAB PO SCH ×2 (08:50→22:06)
[2016-12-10] MEDS: PANTOprazole SOD 40 MG TAB PO SCH (08:50)
[2016-12-10] MEDS: CEROVITE ADV FORMULA TAB PO SCH (08:50)
[2016-12-10] MEDS: POLYETHYLENE (MIRALAX) 17 GM PACK PO SCH (09:19)
[2016-12-10] MEDS: MoRPHine SULFATE 4 MG/ML 1 ML CARP\\VIAL IV PRN ×2 (09:27→13:50)
--- NOTE | 2016-12-10 11:39 | Hospitalist Progress Note ---
Hospitalist Progress Note Date of Service Dec 10, 2016. Subjective Pt evaluation today including: conversation w/ patient, physical exam, chart review, review of inpatient medication list Pt remains with severe pain in left lower back and buttocks shooting down to the left foot. Tried Flexeril last evening and didn't help at all. Continues to take percocet 2 tabs bid in last 24 hrs, took 4 mg morphine this AM, and increased gabapentin dose, still no relief. No SOB, breathing is at her baseline. No BM yet but taking Miralax Constitutional: No fever All Other Systems: Reviewed and Negative Objective Vital Signs Date Time Temp Pulse Resp B/P Pulse Ox O2 Delivery O2 Flow Rate FiO2 12/10/16 07:49 81 18 97 Nasal Cannula 3.0 12/10/16 07:30 97 Nasal Cannula 3.0 12/10/16 07:20 36.4 81 16 118/73 96 Nasal Cannula 3.0 12/09/16 23:36 Nasal Cannula 3.0 12/09/16 23:16 36.7 98 14 109/61 97 Nasal Cannula 3.0 12/09/16 20:01 88 18 98 Nasal Cannula 3.0 12/09/16 17:15 Nasal Cannula 3.0 12/09/16 15:15 36.8 95 16 122/70 98 Nasal Cannula 3.0 12/09/16 14:45 92 18 95 Nasal Cannula 3.0 12/09/16 11:32 92 18 93 Nasal Cannula 3.0 Physical Exam General Appearance: no apparent distress, + thin Eyes: normal inspection, sclerae normal Neck: trachea midline Respiratory/Chest: no respiratory distress, no accessory muscle use, + decreased breath sounds (throughout, mild wheeze scattered) Cardiovascular: regular rate, rhythm, no edema, no gallop, no murmur Abdomen: normal bowel sounds, non tender, soft (with mild distension) Extremities: normal inspection, no pedal edema, no calf tenderness, + pertinent finding (+TTP over left SI joint) Neurologic/Psychiatric: alert, + motor weakness (4/5 strength entire LLE secondary to pain with any movement, otherwise 5/5 strength in RLE), + sensory deficit (decreased to lt touch left lateral and some medial leg), + depressed affect, + pertinent finding (hyperreflexive in patellar DTRs 3+ bilat, Achilles 2+ on right and 5-6 beats clonus on left Achilles, +SLR on left) Skin: normal color, warm/dry, no rash Laboratory Results Last 24 Hours Test 12/10/16 06:25 Sodium Level 140 mmol/L Potassium Level 4.1 mmol/L Chloride Level 102 mmol/L Carbon Dioxide Level 33 mmol/L Anion Gap 5.0 mmol/L Blood Urea Nitrogen 17 mg/dl Creatinine 0.63 mg/dl Est Creatinine Clear Calc Drug Dose 65.6 ml/min Estimated GFR () 105.3 Estimated GFR (Non- 90.9 BUN/Creatinine Ratio 27.3 Random Glucose 91 mg/dl Calcium Level 9.4 mg/dl Assessment and Plan 71-year-old female, with past medical history of COPD on home O2/Chronic respiratory failure, hyperlipidemia, GERD, chronic lower back pain, and depression, who presented to the ED because of severe lower left back pain radiating to left lower extremity. Acute on chronic lower back pain, Lumbar spinal stenosis, H/o lumbar discectomy , UMN signs/Clonus: - Admit med/surg - MRI on 12/04/16- Minor retrolisthesis of L5 on S1. Small central disc protrusion. Mild circumferential disc bulge at the L4-5 level causing mild triangular narrowing of spinal canal. - Continue Gabapentin at increased dose 600/300/600, continue iburpofen, and Percocet and morphine prn for pain management. Continue flexeril although not helping much. Has failed prednisone in past, failed PT--> exacerbated pain - Patient follows with Dr. Downey- consult orthopedics, appreciate recommendations -recommend pain management, PT/OT, Pain Management consultation for possible injections -Place PM consult today COPD, Chronic respiratory failure on home O2, Pulm nodule/Spiculated density - Patient wears 3L O2 at all times - DuoNebs PRN - Continue inhalers - CXR- Equivocal small right apical pneumothorax which is likely artifactual. --Chest CT shows NO PTX but with: 1. Emphysematous change. 2. Mild chronic fibrotic change 3. Small spiculated density superior segment right upper lobe most likely related to parenchymal scar, although a [address] follow-up is suggested. - Follows with Ilan Calderon PA-C Tobacco abuse: Smokes 1 pack per day. Smoking cessation counseling Hyperlipidemia: Continue Simvastatin GERD: Protonix daily Depression: Continue Citalopram HTN, likely secondary to pain: Hydralazine 10 mg IV PRN DVT prophylaxis: LASHELL and SCDs. Lovenox Code Status: LEVEL III, FUL- NO VENTILATION Dispo: From home, lives with PT/OT consult
[2016-12-10] MEDS: GABAPENTIN 300 MG CAP PO SCH (13:42)
[2016-12-10] MEDS: SIMVASTATIN 40 MG TAB PO SCH (22:06)
[2016-12-10] MEDS: ENOXAPARIN 30 MG/0.3 ML SYR SQ SCH (22:07)
[2016-12-11] VITALS (7 sets, daily range): BP systolic 116–118; BP diastolic 67–74; PULSE 80–97; TEMP 36.6–36.8; O2SAT 94–99
[2016-12-11] MEDS: OXYCODONE/ACETAMINOPHEN 5-325 TAB PO PRN ×2 (07:34→13:31)
[2016-12-11] MEDS: ALBUT/IPRATROP 3MG/0.5MG NEB 3 ML VIAL INH SCH ×2 (07:48→11:53)
[2016-12-11] MEDS: POLYETHYLENE (MIRALAX) 17 GM PACK PO SCH (09:44)
[2016-12-11] MEDS: IBUPROFEN 600 MG TAB PO SCH (09:45)
[2016-12-11] MEDS: GABAPENTIN 600 MG TAB PO SCH ×2 (09:45→21:28)
[2016-12-11] MEDS: CITALOPRAM 20 MG TAB PO SCH (09:46)
[2016-12-11] MEDS: CEROVITE ADV FORMULA TAB PO SCH (09:47)
[2016-12-11] MEDS: PANTOprazole SOD 40 MG TAB PO SCH (09:47)
[2016-12-11] MEDS: CHOLECALCIFEROL 1000 INTER.UNIT TAB PO SCH (09:48)
[2016-12-11] MEDS ORDERED: METHYLPREDNISOLONE 4MG TAB, 6 DAY TAPER PO SCH (10:45)
[2016-12-11] MEDS: MoRPHine SULFATE 4 MG/ML 1 ML CARP\\VIAL IV PRN ×2 (11:25→14:54)
[2016-12-11] MEDS: METHYLPREDNISOLONE 4 MG TAB PO SCH ×2 (13:26→17:54)
[2016-12-11] MEDS: IPRATROPIUM BROMIDE/ALBUTEROL respimat INH INH SCH ×3 (13:27→21:28)
[2016-12-11] MEDS: GABAPENTIN 300 MG CAP PO SCH (13:30)
--- NOTE | 2016-12-11 16:24 | Progress Note ---
Subjective Date of Service: Dec 11, 2016. Subjective Pt evaluation today including: conversation w/ patient, physical exam, chart review, lab review, review of studies, conversation w/ consultants intern, review of inpatient medication list Problem List Medical Problems: (1) COPD exacerbation Status: Acute (2) Lumbar radiculopathy Status: Acute (3) Severe low back pain Status: Acute Review of Systems Constitutional: No chills, No fever Respiratory: No cough, No dyspnea on exertion, No shortness of breath, No sputum, No wheezing Cardiac: No chest pain, No orthopnea Abdomen: No constipation, No diarrhea, No nausea, No pain, No vomiting Musculoskeletal: + joint pain, + muscle pain Female : No dysuria, No urinary frequency Psychiatric: No anhedonism, No depression symptoms Objective Vital Signs Date Time Temp Pulse Resp B/P Pulse Ox O2 Delivery O2 Flow Rate FiO2 12/11/16 15:10 36.7 83 16 118/74 94 Nasal Cannula 3.0 12/11/16 14:59 97 Nasal Cannula 3.0 12/11/16 11:53 87 12 97 Nasal Cannula 3.0 12/11/16 07:48 97 18 97 Nasal Cannula 3.0 12/11/16 07:30 99 Nasal Cannula 3.0 12/11/16 07:18 36.6 80 17 117/71 99 Nasal Cannula 3.0 12/10/16 23:25 Nasal Cannula 3.0 12/10/16 23:02 36.5 100 20 163/78 99 Nasal Cannula 3.0 12/10/16 19:20 91 18 97 Nasal Cannula 3.0 Physical Exam General Appearance: WD/WN, no apparent distress Respiratory/Chest: chest non-tender, lungs clear Cardiovascular: no edema, no gallop Abdomen: non tender, soft Neurologic/Psychiatric: alert, oriented x 3, + pertinent finding (radicular pain from lower back down left leg) Assessment and Plan 71-year-old female, with past medical history of COPD on home O2/Chronic respiratory failure, hyperlipidemia, GERD, chronic lower back pain, and depression, who presented to the ED because of severe lower left back pain radiating to left lower extremity. Acute on chronic lower back pain, Lumbar spinal stenosis, H/o lumbar discectomy , UMN signs/Clonus: - Admit med/surg - MRI on 12/04/16- Minor retrolisthesis of L5 on S1. Small central disc protrusion. Mild circumferential disc bulge at the L4-5 level causing mild triangular narrowing of spinal canal. - Continue Gabapentin at increased dose 600/300/600, continue iburpofen, and Percocet and morphine prn for pain management. Continue flexeril although not helping much. Has failed prednisone in past, failed PT--> exacerbated pain - Patient follows with Dr. Downey- consult orthopedics, appreciate recommendations -recommend pain management, PT/OT, Pain Management consultation for possible injections -PM consult, can see as OP, started on steroids COPD, Chronic respiratory failure on home O2, Pulm nodule/Spiculated density - Patient wears 3L O2 at all times - DuoNebs PRN - Continue inhalers - CXR- Equivocal small right apical pneumothorax which is likely artifactual. --Chest CT shows NO PTX but with: 1. Emphysematous change. 2. Mild chronic fibrotic change 3. Small spiculated density superior segment right upper lobe most likely related to parenchymal scar, although a [address] follow-up is suggested. - Follows with Ialn Calderon PA-C Tobacco abuse: Smokes 1 pack per day. Smoking cessation counseling Hyperlipidemia: Continue Simvastatin GERD: Protonix daily Depression: Continue Citalopram HTN, likely secondary to pain: Hydralazine 10 mg IV PRN DVT prophylaxis: LASHELL and SCDs. Lovenox Code Status: LEVEL III, FUL- NO VENTILATION Dispo: From home, lives with PT/OT consult
--- NOTE | 2016-12-11 16:32 | CONSULTATION REPORT ---
PAIN MANAGEMENT CONSULTATION DATE OF CONSULTATION: 12/11/2016 EMR reviewed, patient interviewed and examined. HISTORY OF PRESENT ILLNESS: Bernice Robledo is a 71-year-old female admitted to [facility] with complaint of experiencing low back pain with lower extremity pain. She reports that she was in her usual state of health up until recently when she started experiencing low back pain. She was seen by spine surgery as an outpatient and MRI was ordered. She was scheduled for followup on December 08. However, her pain became more excruciating and she presented to Emergency Room. She reports pain in the left lower extremity, into the left ankle as well as reports experiencing weakness in the leg. She also reports gait disturbance and ambultatory dysfunction. In the past, she has tried physical therapy as well as mild opioid analgesics without any significant efficacy for her current symptoms. PAST MEDICAL HISTORY: With significant history of multiple comorbid conditions including COPD, dyslipidemia, GERD, depression. PHYSICAL EXAMINATION: GENERAL: Exam demonstrates Bernice Robledo appearing her stated age of 71. She is awake, alert, oriented to time, place and person and shows normal and clear sensorium. Her mood and affect are appropriate. Her thought process and cognition are intact. She has significant difficulty with ambulation. MUSCULOSKELETAL: Inspection of the LS spine demonstrates complete loss of lumbar lordosis. Palpation in midline produces no pain. Provocative testing of the facet joint and the SI joint produces no pain. NEUROLOGIC: Straight leg raise is positive on the left side and worse with Achilles stretch. She has 2 - 3 myoclonus on the left side. Sensory exam demonstrates intact sensation. Motor strength is symmetrical with guarding on the left side. No significant weakness appreciable. Gait is extremely guarded with favoring her right and left lower extremity. IMAGING STUDIES: MRI of the lumbar spine performed on 12/04/2016 demonstrates minor retrolisthesis of L4 and S1 with small disc protrusion. She also demonstrates mild central disk bulge on L4-L5 level. ASSESSMENT: Intervertebral disc disorder with disc protrusion causing lumbar radiculitis. TREATMENT AND RECOMMENDATIONS: 1. Recommend discontinuation of Flexeril as in this age group, it may cause significant anticholinergic symptoms. We therefore would not recommend it. We would recommend Medrol Dosepak if no claudication noted. We would recommend discharge with mild opioid analgesics such as hydrocodone or oxycodone. She will be set up for an appointment to undergo transforaminal epidural steroid injection as an outpatient at [facility] immediately, a day or two after discharge. This was discussed with the patient and she is agreeable to plan. 2. Also recommend followup for the abnormal chest x-ray obtained during this admission. BERNABE
[2016-12-11] MEDS ORDERED: METHYLPREDNISOLONE 4 MG TAB PO SCH (21:00)
[2016-12-11] MEDS: SIMVASTATIN 40 MG TAB PO SCH (21:28)
[2016-12-11] MEDS: ENOXAPARIN 30 MG/0.3 ML SYR SQ SCH (21:30)
[2016-12-12] MEDS: OXYCODONE/ACETAMINOPHEN 5-325 TAB PO PRN (06:24)
[2016-12-12] MEDS ORDERED: METHYLPREDNISOLONE 4 MG TAB PO SCH ×2 (07:00→21:00)
[2016-12-12 07:20] VITALS: BP 100/59; PULSE 108; TEMP 36.3; O2SAT 91
[2016-12-12 08:39] LABS: HEMATOCRIT 39.1 % (37-47); MEAN CELL VOLUME 96.1 fL (80-100); MEAN CORPUSCULAR HEMOGLOBIN 31.4 pg (25-34); MEAN CORPUSCULAR HGB CONC 32.7 g/dl (32-36); MEAN PLATELET VOLUME 10.3 fL (7.4-10.4); PLATELET COUNT 281 K/uL (130-400); RED BLOOD COUNT 4.07 M/uL (4.2-5.4); WHITE BLOOD COUNT 5.89 K/uL (4.8-10.8)
[2016-12-12 09:05] LABS: CREATININE 0.6 mg/dl (0.60-1.20)
[2016-12-12] MEDS: IPRATROPIUM BROMIDE/ALBUTEROL respimat INH INH SCH (09:11)
[2016-12-12] MEDS: PANTOprazole SOD 40 MG TAB PO SCH (09:11)
[2016-12-12] MEDS: CHOLECALCIFEROL 1000 INTER.UNIT TAB PO SCH (09:11)
[2016-12-12] MEDS: CEROVITE ADV FORMULA TAB PO SCH (09:12)
[2016-12-12] MEDS: IBUPROFEN 600 MG TAB PO SCH (09:12)
[2016-12-12] MEDS: CITALOPRAM 20 MG TAB PO SCH (09:13)
[2016-12-12] MEDS: GABAPENTIN 600 MG TAB PO SCH (09:13)
[2016-12-12] MEDS: POLYETHYLENE (MIRALAX) 17 GM PACK PO SCH (09:17)
[2016-12-12] MEDS ORDERED: NRN600 PO (10:23)
[2016-12-12] MEDS ORDERED: OXYC-57 PO (10:23)
[2016-12-12] MEDS ORDERED: MDR4 PO (10:23)
[2016-12-12] MEDS ORDERED: NRN300 PO (10:23)
--- NOTE | 2016-12-12 10:26 | Discharge Instructions ---
Discharge Instructions Date of Service Dec 12, 2016. Admission Reason for Admission: Severe Low Back Pain Discharge Discharge Diagnosis / Problem: Lower back pain/radicular pain Discharge Goals Goal(s): Decrease discomfort, Improve function, Increase independence, Improve disease control, Learn about illness, Diagnostic testing, Prevent Disease Progression Activity Recommendations Activity Limitations: resume your previous activity Exercise/Sports Limitations: none Shower/Bathe: no limitations . Instructions / Follow-Up Instructions / Follow-Up Patient to be discharged home Please take medrol taper as directed on prescription Please take percocet 2 pills as needed every 6 hrs for pain Please take neurontin 300 mg once a day and 600 mg tablet twice a day Please follow up with Dr. Lr for epidural injection as schedule Current Hospital Diet Patient's current hospital diet: Regular Diet Discharge Diet Recommended Diet: Regular Diet Pending Studies Studies pending at discharge: no Medical Emergencies . Who to Call and When: Medical Emergencies: If at any time you feel your situation is an emergency, please call 911 immediately. . Non-Emergent Contact Non-Emergency issues call your: Primary Care Provider Call Non-Emergent contact if: your pain is worsening . . "Provider Documentation" section prepared by Moreno Guardado. VTE Core Measure Inpt VTE Proph given/why not?: Nel Howe, SCD's
[2016-12-12 10:30] VITALS: BP 100/59; PULSE 108; TEMP 36.3; O2SAT 91
--- NOTE | 2016-12-12 12:41 | Discharge Summary ---
Discharge Summary Date of Service Dec 12, 2016. Discharge Summary Admission Date: Dec 07, 2016 at 13:57 Discharge Date: Dec 12, 2016 Discharge Disposition: Home Principal Diagnosis: Lower back pain Immunizations: Have You Had Influenza Vaccine: Yes History of Tetanus Vaccine?: Yes History of Pneumococcal: Yes Pneumococcal Date: Jun 24, 2008 History of Hepatitis B Vaccine: No Consultations: Orthopedics Pain management Medication Reconciliation New Medications: Methylprednisolone (Methylprednisolone) 4 Mg Tab 4 MG PO UD for 5 Days, #12 TABS Please take two tablets this evening Then one tablet fourth times a day on 12/13 then one tablet three times a day on 12/14 then one tablet twice a day on 12/15 then one tablet on 12/16 Gabapentin (Gabapentin) 300 Mg Cap 300 MG PO DAILY@1400, #30 CAP Gabapentin (Gabapentin) 600 Mg Tab 600 MG PO BID, #60 TAB Oxycodone/Acetaminophen 5MG/325MG (Percocet 5MG/325MG) Tab 2 TAB PO Q6H PRN for Pain, #30 TAB PAIN Continued Medications: Cholecalciferol (Vitamin D3) 2,000 Unit Cap 1 CAP PO DAILY for 30 Days, #30 CAP 3 Refills Citalopram Hydrobromide (Citalopram Hydrobromide) 10 Mg Tab 1 TAB PO DAILY for 30 Days, #30 TAB 3 Refills Ibuprofen (Ibuprofen) 600 Mg Tab 1 TAB PO Q6 PRN for Pain Meloxicam (Mobic) 7.5 Mg Tab 7.5 MG PO DAILY, TAB Multiple Vitamins W/ Minerals (Centrum) 1 Tab Tab 1 TAB PO DAILY Omeprazole (Prilosec) 20 Mg Capcr 20 MG PO DAILY, CAP Simvastatin (Simvastatin) 40 Mg Tab 1 TAB PO HS Discontinued Medications: Gabapentin (Gabapentin) 300 Mg Cap 1 CAP PO BID for 30 Days, #60 CAP 5 Refills Oxycodone/Acetaminophen 5MG/325MG (Percocet 5MG/325MG) Tab 1 TABLET PO Q6H PRN for Pain, TAB PAIN Discharge Exam Review of Systems: Constitutional: No chills, No fever Respiratory: No cough, No sputum, No wheezing Cardiovascular: No chest pain, No orthopnea Abdomen: No diarrhea, No nausea, No pain, No vomiting Musculoskeletal: + joint pain, No muscle pain, No swelling Genitourinary - Female: No dysuria, No urinary frequency, No urinary incontinence, No urinary urgency Neurologic: No numbness/tingling, No paralysis, No weakness Psychiatric: No anhedonism, No depression symptoms Physical Exam: General Appearance: WD/WN, + mild distress Neck: supple, no adenopathy Respiratory/Chest: lungs clear, normal breath sounds Cardiovascular: no edema, no gallop Abdomen / GI: non tender, soft Neurologic/Psychiatric: alert, normal mood/affect, oriented x 3 Hospital Course 71-year-old female, with past medical history of COPD on home O2/Chronic respiratory failure, hyperlipidemia, GERD, chronic lower back pain, and depression, who presented to the ED because of severe lower left back pain radiating to left lower extremity. Acute on chronic lower back pain, Lumbar spinal stenosis, H/o lumbar discectomy , UMN signs/Clonus: - Admit med/surg - MRI on 12/04/16- Minor retrolisthesis of L5 on S1. Small central disc protrusion. Mild circumferential disc bulge at the L4-5 level causing mild triangular narrowing of spinal canal. - Continue Gabapentin at increased dose 600/300/600, continue iburpofen, and Percocet and morphine prn for pain management. Has failed prednisone in past, failed PT--> exacerbated pain - Patient follows with Dr. Downey- consult orthopedics, appreciate recommendations -recommend pain management, PT/OT - PM consulted, medrol taper on discharge, also sent on percocet and and neurotin as well COPD, Chronic respiratory failure on home O2, Pulm nodule/Spiculated density - Patient wears 3L O2 at all times - DuoNebs PRN - Continue inhalers - CXR- Equivocal small right apical pneumothorax which is likely artifactual. --Chest CT shows NO PTX but with: 1. Emphysematous change. 2. Mild chronic fibrotic change 3. Small spiculated density superior segment right upper lobe most likely related to parenchymal scar, although a [address] follow-up is suggested. - Follows with Ilan Calderon PA-C Tobacco abuse: Smokes 1 pack per day. Smoking cessation counseling Hyperlipidemia: Continue Simvastatin GERD: Protonix daily Depression: Continue Citalopram HTN, likely secondary to pain: Hydralazine 10 mg IV PRN DVT prophylaxis: LASHELL and SCDs. Lovenox Code Status: LEVEL III, FUL- NO VENTILATION Dispo: From home, lives with Total Time Spent: Greater than 30 minutes This includes examination of the patient, discharge planning, medication reconciliation, and communication with other providers. Discharge Instructions Please refer to the electronic Patient Visit Report (Discharge Instructions) for additional information. Additional Copies To Arthur Srivastava M.D.
[2016-12-13] MEDS ORDERED: METHYLPREDNISOLONE 4 MG TAB PO SCH (07:00)
[2016-12-14] MEDS ORDERED: METHYLPREDNISOLONE 4 MG TAB PO SCH (07:00)
[2016-12-15] MEDS ORDERED: METHYLPREDNISOLONE 4 MG TAB PO SCH (07:00)
[2016-12-16] MEDS ORDERED: METHYLPREDNISOLONE 4 MG TAB PO SCH (07:00)
[2017-02-15] MEDS ORDERED: HYDR-5688 PO (14:42)
[2017-03-22] MEDS ORDERED: IBUP-1050 PO (10:47)
[2017-04-23] MEDS ORDERED: CITA40TA4 PO (10:19)
[2017-04-23] MEDS ORDERED: LYR50 PO (10:57)
[2017-06-18] MEDS ORDERED: PRED10TA (11:11)
== END 2016-12-12 12:16 | disposition home or self-care (01) | DRG 552 ==
LOC: ENRESERVTM → ENRESERVDT → C.EDB 11:46 → C.MSN 13:57
PROVIDERS: ADMIT Hospitalist; ATTEND Hospitalist
DX: M48.06 Spinal stenosis, lumbar region (principal); J96.10 Chronic respiratory failure, unspecified whether with hypoxia or hypercapnia; M51.27 Other intervertebral disc displacement, lumbosacral region; M54.16 Radiculopathy, lumbar region; E78.5 Hyperlipidemia, unspecified; K21.9 Gastro-esophageal reflux disease without esophagitis; F17.210 Nicotine dependence, cigarettes, uncomplicated; J44.9 Chronic obstructive pulmonary disease, unspecified; F32.9 Major depressive disorder, single episode, unspecified; I10 Essential (primary) hypertension; Z99.81 Dependence on supplemental oxygen

== ENCOUNTER 2017-11-30 17:22 | Inpatient (IN) | payer OTHER, MEDICARE ==
[~2017-11-30] VITALS: Ht 160 cm; Wt 46.0 kg
[~2017-11-30 17:22] MED LIST changes: -ADVIN25050 INH; -ATOR-22 PO; -ATV5 PO; -BNV150 PO; +CHOL2000 PO; +CITA40TA4 PO; -CLB200 PO; -CLC100 PO; -CLTP PO; -CMBIN INH; -GABA-113 PO; +IBUP-1050 PO; +LYR50 PO; -MULT-506 PO; +MULTTAB5 PO; -NXM/40 PO; -OMEG10007 PO; -PRCUNK PO; +PRED10TA; +PRLSR20 PO; -TIOTCAP INH; +ZCR40 PO
[2017-11-30] MEDS ORDERED: PROPOFOL IV EMULSION 10 MG/ML 100 ML VIAL IV ONE (21:52)
[2017-11-30] MEDS ORDERED: PROPOFOL IV EMULSION 10 MG/ML 100 ML VIAL IV PRN (22:15)
[2017-11-30] MEDS ORDERED: PIPERACILL/TAZOBAC CONSULT ACTIVE PRN (22:15)
[2017-11-30] MEDS ORDERED: ICU PROTOCOL FOR HYPERGLYCEMIA PRN (22:15)
[2017-11-30] MEDS ORDERED: VANCOMYCIN CONSULT ACTIVE PRN (22:15)
[2017-11-30 22:20] VITALS: BP 108/53; PULSE 112; TEMP 37.8; O2SAT 99; BMI 18.4
[2017-11-30] MEDS ORDERED: FENTANYL CITRATE INJ 50 MCG/1 ML 2 ML VIAL ONE (22:24)
--- NOTE | 2017-11-30 22:53 | DIAGNOSTIC IMAGING REPORT ---
CHEST ONE VIEW PORTABLE CLINICAL HISTORY: intubated at other facility RESPIRATORY FAILURE COMPARISON STUDY: December 2016 FINDINGS: The chest has an emphysematous configuration. There is an endotracheal tube positioned approximately 5 cm above the mehnaz. The mehnaz is however difficult to visualize. There is slight coarsening of interstitial markings. There is no lobar consolidation. There is minor blunting of the lateral costophrenic angles.[ IMPRESSION: 1. Emphysema 2. The mehnaz is difficult to visualize, but the endotracheal tube is suspected to be approximately 5 cm above the mehnaz Electronically signed by: Wisam Martel M.D. 11/30/2017 10:51 PM Dictated Date/Time: 11/30/2017 10:49 PM
--- NOTE | 2017-11-30 22:56 | History and Physical ---
History & Physical Date & Time of Service: Nov 30, 2017 at 22:55 Chief Complaint: Hypercapnic Respiratory Failure, Flu Positive Primary Care Physician: Arthur Srivastava M.D. History of Present Illness Source: patient Patient is a 72 year old female with a past medical history of COPD on home O2/ Chronic respiratory failure, hyperlipidemia, GERD, chronic lower back pain, and depression who presents as a direct admit from [facility] for Acute respiratory failure requiring intubation and sedation due to a believed COPD exacerbation and Flu A. The patient is on 3L of oxygen at home and there is very limited history accompanying the patent. The patient was upstairs at home when the could hear her struggling to breath and when EMS arrived she was requiring excessive levels of Oxygen. In the ED she continued to decompensate while on BiPAP with elevated End Tidal CO2 levels and required intubation and transfer. The patient as of her last visit in 2016 wears 3L of oxygen at all times at home, continues to smoke 1 PPD, and follows with Ilan Calderon of [facility]. Family History Patient reports no known family medical history. Social History Smoking Status: Current Every Day Smoker Smokeless Tobacco Use: No Alcohol Use: none Drug Use: none Marital Status: Housing status: lives with family Occupational Status: retired Immunizations History of Influenza Vaccine: Yes History of Tetanus Vaccine?: Yes History of Pneumococcal: Yes Pneumococcal Date: Jun 24, 2008 History of Hepatitis B Vaccine: No Allergies Coded Allergies: No Known Allergies (Verified , NONE, 12/07/16) Home Medications Scheduled Cholecalciferol (Vitamin D3), 1 CAP PO DAILY Citalopram (Citalopram Hydrobromide), 1 TAB PO DAILY Ibuprofen (Advil), 200 MG PO UD Multiple Vitamins W/ Minerals (Centrum), 1 TAB PO DAILY Omeprazole (Prilosec), 20 MG PO DAILY Prednisone (Prednisone), DAILY Pregabalin (Lyrica), 50 MG PO BID Simvastatin (Simvastatin), 1 TAB PO HS Review of Systems Intubated and Sedated Physical Exam Vital Signs Date Time Temp Pulse Resp B/P (MAP) Pulse Ox O2 Delivery O2 Flow Rate FiO2 11/30/17 22:20 37.8 112 19 108/53 99 Mechanical Ventilator 50 11/30/17 22:00 50 General Appearance: + pertinent finding (Intubated and Sedated) Head: normocephalic, atraumatic Respiratory/Chest: chest non-tender, + rhonchi, + wheezing Cardiovascular: regular rate, rhythm, no murmur Abdomen/GI: normal bowel sounds, non tender, soft Neurologic/Psych: + pertinent finding (Sedated) Diagnostics Laboratory Results Results Past 24 Hours Test 11/30/17 22:15 Range/Units Creatine Kinase MB Ratio 0-3.0 Microbiology Results 11/30/17 Blood Culture, Ordered Pending 11/30/17 Blood Culture, Ordered Pending 11/30/17 MRSA DNA Surveillance Screen, Ordered Pending 11/30/17 Gram Stain, Ordered Pending 11/30/17 Sputum Culture, Ordered Pending Impression Assessment and Plan Patient is a 72 year old female with a past medical history of COPD on home O2/ Chronic respiratory failure, hyperlipidemia, GERD, chronic lower back pain, and depression who presents as a direct admit from [facility] for Acute respiratory failure requiring intubation and sedation due to a believed COPD exacerbation and Flu A. Acute Hypoxic Respiratory Failure 2/ Flu A and COPD Exacerbation - Intubation: Ventilator at TV of 450 and Rate of 12, FiO2 50% - Sedation - managed per ICU, currently on propofol - Plan to start patient on stress dose steroids, methylpred 80mg once + 40mg q8h - Tamiflu 75mg PO BID - Atrovent - Xopenex - IV NS @ 100mls/hr - Vanc, Zosyn, Levaquin - Blood Cultures - CXR - Consult Arborist and Management in the ICU HLD - Zocor GERD - Protonix DVT - Heparin 5,000 q8h Code Status - Full Resuscitation Attending addendum: I have physically seen this patient, have supervised the medical residents activities, and agree with the H&P unless as otherwise noted. Assessment and Plan: Acute respiratory failure with hypoxia/influenza A/COPD exacerbation-- Admit to the ICU. Tamiflu 75 mg p.o. twice daily Vancomycin IV per pharmacokinetic monitoring Zosyn 3.375 mg IV every 8 hours Levofloxacin 500 mg IV every 24 hours Duonebs every 4 hours while awake and every 2 hours when necessary. Solu-Medrol 40 mg IV every 8 hours Guaifenesin extended release 600 mg by mouth twice a day Nasal cannula oxygen titrate to keep pulse ox greater than or equal to 92% Sputum Gram stain and culture Level of Care Critical Care Advanced Directives Existing Living Will: Yes Existing Power of Electrician Locomotive: Yes Resuscitation Status FULL RESUSCITATION VTE Prophylaxis VTE Risk Assessment Done? Y/N: Yes Risk Level: Moderate Given or contraindicated: Unfractionated heparin SQ Resident Tracking Resident Involvement: Resident Care Provided Care Provided: Adult Hospital Medicine
[2017-11-30] MEDS ORDERED: VANCOMYCIN INJ 1,250 MG in SODIUM CHLORIDE 0.9% 250ML 250 ML IV SCH (23:00)
[2017-11-30] MEDS ORDERED: PIPERACILL/TAZOBAC IV 3.375 GM in DEXTROSE 5% 100ML IV ONE (23:00)
[2017-11-30] MEDS: NSS + 20MEQ KCL 1000ML 1,000 ML IV SCH (23:11)
[2017-11-30] MEDS ORDERED: METHYLPREDNISOLONE IV 80 MG in SYRINGE 0 ML IV ONE (23:15)
[2017-11-30 23:20] LABS: HEMATOCRIT 32.5 % (37-47); HEMOGLOBIN 10.1 g/dL (12.0-16.0); IG# 0.02 K/uL (0.00-0.02); LYMPH % 3.5 %; LYMPH ABS # 0.24 K/uL (1.2-3.4); MEAN CELL VOLUME 97.6 fL (80-100); MEAN CORPUSCULAR HEMOGLOBIN 30.3 pg (25-34); MEAN CORPUSCULAR HGB CONC 31.1 g/dl (32-36); MEAN PLATELET VOLUME 10.3 fL (7.4-10.4); MONO % 3.1 %; MONO ABS # 0.21 K/uL (0.11-0.59); NEUT % 93.1 %; NEUT ABS # 6.32 K/uL (1.4-6.5); PLATELET COUNT 211 K/uL (130-400); RED CELL DISTRIBUTION WIDTH CV 14.3 % (11.5-14.5); RED CELL DISTRIBUTION WIDTH SD 51.5 fL (36.4-46.3); WHITE BLOOD COUNT 6.79 K/uL (4.8-10.8)
[2017-11-30 23:30] LABS: PTT PATIENT 25.6 SECONDS (21.0-31.0)
[2017-11-30] MEDS ORDERED: MIDAZOLAM 125MG/250ML D5W 250 ML IV PRN (23:36)
--- NOTE | 2017-11-30 23:42 | Critical Care Consultation ---
Critical Care Consultation Date of Consultation: Nov 30, 2017. Attending Physician: Brody Spann M.D. Reason for Consultation: 72-year-old female with a significant past medical history of COPD with oxygen dependency presenting for COPD exacerbation with acute hypercapnic respiratory failure requiring intubation. History of Present Illness Patient is a 72-year-old female transferred to our facility via ALS for direct admission from [facility]. History of present illness is limited to patient's current state of intubation and sedation. Per records, the patient had been complaining of upper respiratory-like symptoms with worsening cough and shortness of breath in the last 24 hours. She has COPD and is O2 dependent at home. Patient had worsening lethargy today and contacted EMS to bring her to the hospital. Upon evaluation in her home, she was hypoxic. She was bagged using bag valve mask. Upon arrival to the ER, she was placed on BiPAP without good ventilation or oxygenation. At that point, she was sedated and intubated. During her stay, she received IV fluids, 2 g of magnesium, nebulizer treatments, and started on a Diprivan drip for sedation. She was found to be influenza A positive. In addition, her troponin was felt to be elevated and her EKG was felt to have lateral T-wave depressions per emergency providers interpretation. She received 600 mg aspirin rectally. In route to this facility, the patient received an additional 1 L saline bolus and 50 mcg of fentanyl. Overall, she is received a total of 3 L normal saline. Patient is known to have a history of hyperlipidemia, COPD, and GERD. Past Medical/Surgical History Medical Problems: (1) Acute respiratory failure with hypoxia (2) COPD (chronic obstructive pulmonary disease) Surgical Problems: (1) Previous back surgery Family History Patient reports no known family medical history. Unable to obtain secondary to patient's current state of intubation with sedation. Social History Smoking Status: Current Every Day Smoker Smokeless Tobacco Use: No Alcohol Use: Drug Use: none Marital Status: Housing Status: lives with family Occupation Status: other Allergies Coded Allergies: No Known Allergies (Verified , NONE, 12/07/16) Home Medications Scheduled Cholecalciferol (Vitamin D3), 1 CAP PO DAILY Citalopram (Citalopram Hydrobromide), 1 TAB PO DAILY Ibuprofen (Advil), 200 MG PO UD Multiple Vitamins W/ Minerals (Centrum), 1 TAB PO DAILY Omeprazole (Prilosec), 20 MG PO DAILY Prednisone (Prednisone), DAILY Pregabalin (Lyrica), 50 MG PO BID Simvastatin (Simvastatin), 1 TAB PO HS Current Inpatient Medications Current Inpatient Medications Medications (Trade) Dose Ordered Sig/Peyman Route Start Time Stop Time Status Last Admin Dose Admin Heparin Sodium (Porcine) (Heparin Sq 5000 Unit/0.5ml) 5,000 unit Q8H SQ 11/30/17 22:15 12/30/17 22:14 UNV Acetaminophen (Tylenol Tab) 650 mg Q4H PRN PO 11/30/17 22:15 12/30/17 22:14 Fentanyl Citrate (Fentanyl Inj) 25 mcg Q1H PRN IV 11/30/17 22:15 12/14/17 22:14 Ipratropium [place] (Atrovent 0.02% 0.5MG/2.5ML Neb) 0.5 mg Q4R INH 12/01/17 00:00 12/31/17 00:00 Levalbuterol (Xopenex 1.25MG/ 3ML Neb) 1.25 mg Q4R INH 12/01/17 00:00 12/31/17 00:00 Pantoprazole Sodium 40 mg/ Syringe 10 ml @ 5 mls/min DAILY@1100 IV 12/01/17 11:00 12/31/17 10:59 Miscellaneous Information (Icu Protocol For Hyperglycemia) 1 ea PRN PRN N/A 11/30/17 22:15 12/02/17 22:14 Propofol (Diprivan Iv Emulsion 100ml Vial) 1 dose UD PRN IV 11/30/17 22:15 12/03/17 22:14 Methylprednisolone Sodium Succinate 40 mg/Syringe 0.64 ml @ 1.5 mls/min Q8H IV 12/01/17 08:00 12/31/17 07:59 Miscellaneous Information (Consult) 1 ea UD PRN N/A 11/30/17 22:15 12/30/17 22:14 Piperacillin Sod/ Tazobactam Sod 4.5 gm/Dextrose 120 ml @ 200 mls/hr Q6H IV 11/30/17 22:15 12/07/17 22:14 UNV Miscellaneous Information (Consult) 1 ea UD PRN N/A 11/30/17 22:15 12/30/17 22:14 Levofloxacin 750 mg/Prmx 150 ml @ 100 mls/hr Q24H IV 11/30/17 22:15 12/07/17 22:14 UNV Potassium Chloride/Sodium Chloride 1,000 ml @ 100 mls/hr Q10H IV 11/30/17 23:00 12/30/17 22:59 11/30/17 23:11 100 MLS/HR Simvastatin (Zocor Tab) 40 mg HS PO 12/01/17 21:00 12/31/17 20:59 Vancomycin HCl 1250 mg/Sodium Chloride 275 ml @ 125 mls/hr 2300 IV 11/30/17 23:00 12/01/17 01:11 11/30/17 23:11 125 MLS/HR Oseltamivir Phosphate (Tamiflu Cap) 75 mg BID PO 12/01/17 09:00 12/06/17 08:59 Midazolam HCl 250 ml @ 0 mls/hr Q0M STAT IV 11/30/17 23:36 11/30/17 23:37 UNV Review of Systems Unable to obtain secondary to patient's current state of intubation with sedation. Physical Exam Date Time Temp Pulse Resp B/P (MAP) Pulse Ox O2 Delivery O2 Flow Rate FiO2 11/30/17 22:20 37.8 112 19 108/53 99 Mechanical Ventilator 50 11/30/17 22:00 50 VITAL SIGNS - Vital signs and nursing notes were reviewed. GENERAL - 72-year-old female appearing her stated age. Intubated and sedated to a RASS of -1. SKIN - Without rashes. HEAD - NC/AT. EYES - PERRL bilaterally. EARS - No deformities of external structures noted on gross examination bilaterally. NOSE - Midline and without cyanosis. No epistaxis or purulent drainage noted. Septum midline without deviation or septal hematoma noted. MOUTH/OROPHARYNX - Intubated with bite block in place. Without perioral cyanosis. Buccal mucosa pink and moist. NECK - Neck with FROM. Supple to palpation. No lymphadenopathy noted. LUNGS - Chest wall symmetric without accessory muscle use, intercostals retractions, or central cyanosis. Distant breath sounds bilaterally. CARDIAC - RRR with S1/S2. No murmur, rubs, or gallops appreciated. ABDOMEN - Abdominal contour flat without pulsations or visible masses. BS normoactive all four quadrants. No tenderness, palpable masses, hepatosplenomegaly, or ascites noted. EXTREMITIES - No clubbing or peripheral cyanosis. No pretibial edema present. +3 /5 radial and dorsalis pedis pulses palpated throughout. NEUROLOGIC - No focal deficits on exam. RASS -1. Unable to assess otherwise secondary to sedation. Laboratory Results Last 24 Hours Test 11/30/17 22:15 11/30/17 22:56 Creatine Kinase MB Ratio White Blood Count 6.79 K/uL Red Blood Count 3.33 M/uL Hemoglobin 10.1 g/dL Hematocrit 32.5 % Mean Corpuscular Volume 97.6 fL Mean Corpuscular Hemoglobin 30.3 pg Mean Corpuscular Hemoglobin Concent 31.1 g/dl Platelet Count 211 K/uL Mean Platelet Volume 10.3 fL Neutrophils (%) (Auto) 93.1 % Lymphocytes (%) (Auto) 3.5 % Monocytes (%) (Auto) 3.1 % Eosinophils (%) (Auto) 0.0 % Basophils (%) (Auto) 0.0 % Neutrophils # (Auto) 6.32 K/uL Lymphocytes # (Auto) 0.24 K/uL Monocytes # (Auto) 0.21 K/uL Eosinophils # (Auto) 0.00 K/uL Basophils # (Auto) 0.00 K/uL RDW Standard Deviation 51.5 fL RDW Coefficient of Variation 14.3 % Immature Granulocyte % (Auto) 0.3 % Immature Granulocyte # (Auto) 0.02 K/uL Prothrombin Time 10.3 SECONDS Prothromb Time International Ratio 1.0 Activated Partial Thromboplast Time 25.6 SECONDS Partial Thromboplastin Ratio 1.0 Lactic Acid Level 1.5 mmol/L Diagnostic Results Radiological imaging and reports were reviewed by myself. Radiologist's Interpretation as follows: CHEST ONE VIEW PORTABLE CLINICAL HISTORY: intubated at other facility RESPIRATORY FAILURE COMPARISON STUDY: December 2016 FINDINGS: The chest has an emphysematous configuration. There is an endotracheal tube positioned approximately 5 cm above the mehnaz. The mehnaz is however difficult to visualize. There is slight coarsening of interstitial markings. There is no lobar consolidation. There is minor blunting of the lateral costophrenic angles.[ IMPRESSION: 1. Emphysema 2. The mehnaz is difficult to visualize, but the endotracheal tube is suspected to be approximately 5 cm above the mehnaz Assessment & Plan (1) Acute hypercapnic respiratory failure (2) COPD with exacerbation (3) Influenza A (4) CO2 narcosis (5) Acute respiratory failure with hypoxia Reason Critically Ill: 72-year-old female with a significant past medical history of COPD with oxygen dependency presenting for COPD exacerbation with acute hypercapnic respiratory failure requiring intubation. Neuro - * CAM ICU: POSITIVE * RASS -1 * Sedation: Propofol w/ PRN Fentanyl pushes. Cardiac - * no h/o CAD on record. * EKG at [facility] demonstrates Sinus Tach at 119bpm, QTc 467ms per my interpretation. * While at [facility], ED Physician felt as though EKG demonstrated lateral T- wave depression. In addition, the troponin was felt to be elevated. Because of this, the patient received 600 mg Aspirin rectally. * Per my interpretation, ST changes likely noted were more artifact than anything. * EKG upon arrival demonstrates NSR 88bpm, QTc 464ms. * Will check/trend troponins. * Monitor on telemetry. * Daily EKGs. Respiratory - * Acute on Chronic Hypercapnic Respiratory Failure with Hypoxia/COPD w/ Exacerbation: * Requiring intubation. Will monitor serial ABGs - adjustments as tolerated. * Watch closely for the development of ARDS. * ABG ([facility]): AC/12min/75/522/31 while at [facility]. * Nebs. * On Chronic Prednisone at 10mg/day - will stress dose initially w/ 80mg Solu- Medrol then 40mg q8h. * Serial CXRs. * Current every day smoker on home O2 - educate on cessation when alert/ oriented. * Will cover with aggressive IV antibiotics in the acutely ill patient. * Tamiflu BID GI - * Prophylaxis: Protonix. * Insert OG. RENAL/LYTES - * No significant electrolyte derangement. * Monitor daily. * Did receive 2g IV Mag at the outside facility for ??asthma exacerbation?? * IVF: NSS+20mEq KCl @100mL/hr - * Bai in place. * Repeat UA/Cultures at this facility. * Strict I&Os ENDO - * No h/o DM. * BSGs w/ ISS/gtt per protocol, particularly in the setting of high dose steroids. * No know h/o Thyroid Dz: * Will check TSH. HEME - * Stable H&H: * Will monitor. ID - * Respiratory Failure (Chronic Smoker, COPD, immunocompromised on daily prednisone, influenza A POSITIVE): * Warrants antibiotic coverage in the acutely ill phase. * Vancomycin/Zosyn/Levaquin. * Will check Sputum/Blood/Urine cultures. * Will check ProCal. * Trend Lactate. * Tamiflu BID. LINES/IV ACCESS - * PIVs intact. * Low threshold for CVL placement if pressors needed 2/2 multiple medications. * Bai Catheter in place. DVT PROPHYLAXIS - * Heparin sq BID. * SCDs. I have personally spent 45 minutes of critical care time in the direct management of this patient. This is a life/limb threatening event. This includes time spent evaluating patient, direct bedside care, chart review, placing orders, interpretation of diagnostic studies, discussion with consultants, patient, and family members, as well as other required patient management activities. This time is exclusive of all separately billable procedures, and teaching time and separate from and in addition to any other critical care service time. Thank you for this consultation allow us to be part of this patient's care. Please refer to my attending physician's documentation for any further recommendations. Attending addendum, The patient was seen and examined, agree with the assessment and plan my colleague Jeremías Carpenter, The patient was intubated and transferred to us from [facility], the patient had acute respiratory failure and history of COPD home O2 dependent on prednisone daily. The patient had also influenza A. The patient was started empirically on steroids and bronchodilators. Due to hypercapnia the patient mentating was adjusted. Appear to be comfortable currently on current sedation. No events occurred overnight. DVT and GI prophylaxis were provided. Failed spontaneous breathing trial. Discussed with the staff on rounds and details. CCT was 45 minutes.
[2017-11-30 23:54] LABS: ALBUMIN 2.6 gm/dl (3.4-5.0); CREATININE 0.58 mg/dl (0.60-1.20); POTASSIUM 4.2 mmol/L (3.5-5.1)
[2017-11-30 23:59] VITALS: O2SAT 100
[2017-12-01] VITALS (18 sets, daily range): BP systolic 82–149; BP diastolic 55–78; PULSE 77–108; TEMP 37–37.5; O2SAT 93–100; Ht 160 cm; Wt 46.0 kg
[2017-12-01] MEDS ORDERED: LEVALBUTEROL 1.25MG/3ML NEB INH SCH
[2017-12-01] MEDS ORDERED: IPRATROPIUM BROMIDE NEB SOLN 0.02% 2.5 ML VIAL INH SCH
[2017-12-01 00:03] LABS: CKMB 5.1 ng/ml (0.5-3.6); PHOSPHORUS 2.1 mg/dl (2.5-4.9); TOTAL PROTEIN 6.9 gm/dl (6.4-8.2)
[2017-12-01] MEDS: FENTANYL CITRATE INJ 50 MCG/1 ML 2 ML VIAL IV PRN ×4 (00:49→05:40)
[2017-12-01] MEDS: LEVOFLOXACIN / D5W 750 MG in PREMIXED IN D5W 150 ML IV SCH (01:41)
[2017-12-01 02:17] LABS: INFLUENZA B PCR Neg for Influ B (NEG)
[2017-12-01 02:18] LABS: INFLUENZA A PCR POS for Influ A (NEG)
[2017-12-01] MEDS: ALBUTEROL HFA 8 GM INHALER INH SCH ×5 (03:18→20:00)
[2017-12-01] MEDS: IPRATROPIUM BROMIDE HFA INHALER INH SCH ×5 (03:18→20:00)
[2017-12-01] MEDS ORDERED: PIPERACILL/TAZOBAC IV 3.375 GM in DEXTROSE 5% 100ML 100 ML IV SCH (04:00)
[2017-12-01] MEDS: HEPARIN SOD 5000 UNIT/0.5 ML CARP SQ SCH ×3 (05:41→21:47)
[2017-12-01 06:42] LABS: HEMATOCRIT 27.6 % (37-47); HEMOGLOBIN 8.8 g/dL (12.0-16.0); IG# 0.01 K/uL (0.00-0.02); LYMPH ABS # 0.21 K/uL (1.2-3.4); MEAN CELL VOLUME 95.8 fL (80-100); MEAN CORPUSCULAR HEMOGLOBIN 30.6 pg (25-34); MEAN CORPUSCULAR HGB CONC 31.9 g/dl (32-36); MEAN PLATELET VOLUME 10.2 fL (7.4-10.4); MONO ABS # 0.26 K/uL (0.11-0.59); NEUT % 90.8 %; NEUT ABS # 4.74 K/uL (1.4-6.5); PLATELET COUNT 208 K/uL (130-400); RED CELL DISTRIBUTION WIDTH CV 14.3 % (11.5-14.5); RED CELL DISTRIBUTION WIDTH SD 50.4 fL (36.4-46.3); WHITE BLOOD COUNT 5.22 K/uL (4.8-10.8)
[2017-12-01 06:43] LABS: PTT PATIENT 28.7 SECONDS (21.0-31.0)
[2017-12-01 07:09] LABS: ALBUMIN 2.3 gm/dl (3.4-5.0); ALT/SGPT 25 U/L (12-78); AST/SGOT 37 U/L (15-37); BLOOD UREA NITROGEN 28 mg/dl (7-18); CALCIUM 8.1 mg/dl (8.5-10.1); CARBON DIOXIDE 27 mmol/L (21-32); CREATININE 0.44 mg/dl (0.60-1.20); GLUCOSE 127 mg/dl (70-99); LIPASE 41 U/L (73-393); POTASSIUM 4.3 mmol/L (3.5-5.1); SODIUM 136 mmol/L (136-145)
--- NOTE | 2017-12-01 07:26 | DIAGNOSTIC IMAGING REPORT ---
CHEST ONE VIEW PORTABLE CLINICAL HISTORY: Respiratory failure. COMPARISON STUDY: Chest radiograph November 30, 2017. FINDINGS: Tip of nasogastric tube is below lower aspect of image but at least within the proximal body of the stomach. The tip of the endotracheal tube is 3.8 cm above the mehnaz. There is no pneumothorax or pleural effusion. Emphysema is noted. Cardiac size is normal. Mediastinal contours are normal. Minimal right basilar opacity favors atelectasis. There is no consolidation. There is an old proximal left humeral fracture. IMPRESSION: 1. Satisfactory positioning of lines and tubes. 2. Emphysema. No consolidation or pneumothorax. Electronically signed by: Ryna Joel M.D. 12/01/2017 7:25 AM Dictated Date/Time: 12/01/2017 7:23 AM
[2017-12-01 07:28] LABS: ALKALINE PHOSPHATASE 50 U/L (45-117); CKMB 2.9 ng/ml (0.5-3.6); PHOSPHORUS 1.4 mg/dl (2.5-4.9); TOTAL PROTEIN 6.2 gm/dl (6.4-8.2)
[2017-12-01] MEDS ORDERED: METHYLPREDNISOLONE IV 40 MG in SYRINGE 0 ML IV SCH (08:00)
[2017-12-01] MEDS: OSELTAMIVIR PHOSPHATE SUSP 75 MG/12.5 ML UDP PO SCH ×2 (08:18→21:24)
--- NOTE | 2017-12-01 08:36 | Family Medicine Progress Note ---
Progress Note Date of Service Dec 01, 2017. Subjective Pt evaluation today including: conversation w/ patient, physical exam Pain: Back of neck from straps Patient is intubated and sedated with midazolam however wakes to voice but unable to fully open her eyes and appears drowsy. Communicates by head nodding and shaking. She denies any chest, abdominal pain. Complains of the strap holding the ventilation tubing at the back of her neck. Additional Comments: Unable to obtain due to intubated and sedated. Minimal ability to communicate Medications Current Inpatient Medications Medications (Trade) Dose Ordered Sig/Peyman Route Start Time Stop Time Status Last Admin Dose Admin Heparin Sodium (Porcine) (Heparin Sq 5000 Unit/0.5ml) 5,000 unit Q8H SQ 12/01/17 06:00 12/31/17 05:59 12/01/17 05:41 5,000 UNIT Acetaminophen (Tylenol Tab) 650 mg Q4H PRN PO 11/30/17 22:15 12/30/17 22:14 Fentanyl Citrate (Fentanyl Inj) 25 mcg Q1H PRN IV 11/30/17 22:15 12/14/17 22:14 12/01/17 05:40 25 MCG Pantoprazole Sodium 40 mg/ Syringe 10 ml @ 5 mls/min DAILY@1100 IV 12/01/17 11:00 12/31/17 10:59 Miscellaneous Information (Icu Protocol For Hyperglycemia) 1 ea PRN PRN N/A 11/30/17 22:15 12/02/17 22:14 Propofol (Diprivan Iv Emulsion 100ml Vial) 1 dose UD PRN IV 11/30/17 22:15 12/03/17 22:14 Methylprednisolone Sodium Succinate 40 mg/Syringe 0.64 ml @ 1.5 mls/min Q8H IV 12/01/17 08:00 12/31/17 07:59 12/01/17 08:04 1.5 MLS/MIN Miscellaneous Information (Consult) 1 ea UD PRN N/A 11/30/17 22:15 12/30/17 22:14 Piperacillin Sod/ Tazobactam Sod 3.375 gm/Dextrose 115 ml @ 28 mls/hr Q8H IV 12/01/17 04:00 12/08/17 03:59 12/01/17 03:31 28 MLS/HR Miscellaneous Information (Consult) 1 ea UD PRN N/A 11/30/17 22:15 12/30/17 22:14 Levofloxacin 750 mg/Prmx 150 ml @ 100 mls/hr Q24H IV 12/01/17 02:00 12/08/17 01:59 12/01/17 01:41 100 MLS/HR Potassium Chloride/Sodium Chloride 1,000 ml @ 100 mls/hr Q10H IV 11/30/17 23:00 12/30/17 22:59 11/30/17 23:11 100 MLS/HR Simvastatin (Zocor Tab) 40 mg HS PO 12/01/17 21:00 12/31/17 20:59 Midazolam HCl 250 ml @ 0 mls/hr Q0M PRN IV 11/30/17 23:36 12/30/17 23:35 12/01/17 04:00 4 MLS/HR Ipratropium Cylinder (Atrovent Hfa Inhaler) 4 puffs Q4R INH 12/01/17 04:00 12/31/17 03:59 12/01/17 08:05 4 PUFFS Albuterol (Ventolin Hfa Inhaler) 4 puffs Q4R INH 12/01/17 04:00 12/31/17 03:59 12/01/17 08:05 4 PUFFS Oseltamivir Phosphate (Tamiflu Susp) 75 mg BID PO 12/01/17 09:00 12/06/17 08:59 Objective Vital Signs Date Time Temp Pulse Resp B/P (MAP) Pulse Ox O2 Delivery O2 Flow Rate FiO2 12/01/17 08:02 35 12/01/17 06:00 85 18 94/59 (71) 99 Mechanical Ventilator 35 12/01/17 05:14 35 12/01/17 04:00 100 Mechanical Ventilator 35 12/01/17 04:00 35 12/01/17 04:00 37.2 90 18 121/55 (77) 100 Mechanical Ventilator 30 12/01/17 03:18 35 12/01/17 02:00 84 18 93/58 (70) 100 Mechanical Ventilator 40 12/01/17 02:00 35 12/01/17 00:46 96 18 110/59 (76) 100 Mechanical Ventilator 40 12/01/17 00:31 106 18 137/55 (82) 94 Mechanical Ventilator 40 12/01/17 00:29 108 21 131/69 (89) 93 Mechanical Ventilator 40 12/01/17 00:16 91 18 119/64 (82) 98 Mechanical Ventilator 40 12/01/17 00:08 93 18 112/57 (75) 98 Mechanical Ventilator 40 12/01/17 00:01 37.4 87 18 82/56 (65) 100 Mechanical Ventilator 40 11/30/17 23:59 100 Mechanical Ventilator 40 11/30/17 23:59 40 11/30/17 23:44 35 11/30/17 22:20 37.8 112 19 108/53 99 Mechanical Ventilator 50 11/30/17 22:00 50 Physical Exam General Appearance: + mild distress (due to being ventilated) Eyes: PERRL ENT: + pertinent finding (intubated) Respiratory/Chest: no respiratory distress, + pertinent finding (air entry bilaterally, reduced breath sounds with coarse crackles bilaterally) Cardiovascular: regular rate, rhythm, no murmur Abdomen: normal bowel sounds, non tender, soft Neurologic/Psychiatric: + pertinent finding (drowsy, able to minimally communicate with head nodding and shaking, able to move all 4 limbs on command) Laboratory Results 12/01/17 06:26 Red Blood Count 2.88, Mean Corpuscular Volume 95.8, Mean Corpuscular Hemoglobin 30.6, Mean Corpuscular Hemoglobin Concent 31.9, Mean Platelet Volume 10.2, Neutrophils (%) (Auto) 90.8, Lymphocytes (%) (Auto) 4.0, Monocytes (%) (Auto) 5.0, Eosinophils (%) (Auto) 0.0, Basophils (%) (Auto) 0.0, Neutrophils # (Auto) 4.74, Lymphocytes # (Auto) 0.21, Monocytes # (Auto) 0.26, Eosinophils # (Auto) 0.00, Basophils # (Auto) 0.00 12/01/17 06:26 Test 11/30/17 22:56 12/01/17 00:05 12/01/17 01:25 12/01/17 01:50 Lactic Acid Level 1.5 mmol/L (0.4-2.0) Globulin 4.3 gm/dl (2.5-4.0) Albumin/Globulin Ratio 0.6 (0.9-2) Thyroid Stimulating Hormone (TSH) 0.267 uIu/ml (0.300-4.500) Bedside Glucose 134 mg/dl (70-90) Influenza Type A (RT-PCR) POS for Influ A (NEG) Influenza Type B (RT-PCR) Neg for Influ B (NEG) Urine Color ORANGE Urine Appearance CLOUDY (CLEAR) Urine pH 5.5 (4.5-7.5) Urine Specific [place] 1.035 (1.000-1.030) Urine Protein 1+ (NEG) Urine Glucose (UA) NEG (NEG) Urine Ketones 2+ (NEG) Urine Occult Blood 3+ (NEG) Urine Nitrite NEG (NEG) Urine Bilirubin NEG (NEG) Urine Urobilinogen NEG (NEG) Urine Leukocyte Esterase TRACE (NEG) Urine WBC (Auto) 5-10 /hpf (0-5) Urine RBC (Auto) >30 /hpf (0-4) Urine Hyaline Casts (Auto) 1-5 /lpf (0-5) Urine Epithelial Cells (Auto) >30 /lpf (0-5) Urine Bacteria (Auto) NEG (NEG) Test 12/01/17 02:16 12/01/17 06:26 Blood Gas Sample Site R Radial Bedside Blood Gas pH (LAB) 7.41 (7.35-7.45) Bedside Blood Gas pCO2 (LAB) 44 mmHg (35-46) Bedside Blood Gas pO2 (LAB) 135 mmHg (80-95) Bedside Blood Gas HCO3 (LAB) 28 meq/L (19-24) Bedside Blood Gas Total CO2 29 mEq/l (24-31) Bedside Blood Gas Base Excess (LAB) 3.0 meq/L (-9-1.8) Bedside Blood Gas O2 Saturation 99.0 % (90-95) Roly Test Pass Oxygen Delivery Device Ventilator Bedside Oxygen Rate (breaths/min) 18 Blood Gas Minute Ventilation 8.3 Bedside FiO2 35 % Blood Gas Tidal Volume 450 Blood Gas PEEP 5 White Blood Count 5.22 K/uL (4.8-10.8) Red Blood Count 2.88 M/uL (4.2-5.4) Hemoglobin 8.8 g/dL (12.0-16.0) Hematocrit 27.6 % (37-47) Mean Corpuscular Volume 95.8 fL (80-100) Mean Corpuscular Hemoglobin 30.6 pg (25-34) Mean Corpuscular Hemoglobin Concent 31.9 g/dl (32-36) Platelet Count 208 K/uL (130-400) Mean Platelet Volume 10.2 fL (7.4-10.4) Neutrophils (%) (Auto) 90.8 % Lymphocytes (%) (Auto) 4.0 % Monocytes (%) (Auto) 5.0 % Eosinophils (%) (Auto) 0.0 % Basophils (%) (Auto) 0.0 % Neutrophils # (Auto) 4.74 K/uL (1.4-6.5) Lymphocytes # (Auto) 0.21 K/uL (1.2-3.4) Monocytes # (Auto) 0.26 K/uL (0.11-0.59) Eosinophils # (Auto) 0.00 K/uL (0-0.5) Basophils # (Auto) 0.00 K/uL (0-0.2) RDW Standard Deviation 50.4 fL (36.4-46.3) RDW Coefficient of Variation 14.3 % (11.5-14.5) Immature Granulocyte % (Auto) 0.2 % Immature Granulocyte # (Auto) 0.01 K/uL (0.00-0.02) Red Blood Cell Morphology Unremarkable Prothrombin Time 10.9 SECONDS (9.0-12.0) Prothromb Time International Ratio 1.0 (0.9-1.1) Activated Partial Thromboplast Time 28.7 SECONDS (21.0-31.0) Partial Thromboplastin Ratio 1.1 Anion Gap 5.0 mmol/L (3-11) Est Creatinine Clear Calc Drug Dose 87.2 ml/min Estimated GFR () 117.7 Estimated GFR (Non- 101.6 BUN/Creatinine Ratio 62.5 (10-20) Calcium Level 8.1 mg/dl (8.5-10.1) Phosphorus Level 1.4 mg/dl (2.5-4.9) Magnesium Level 2.4 mg/dl (1.8-2.4) Total Bilirubin 0.3 mg/dl (0.2-1) Direct Bilirubin < 0.1 mg/dl (0-0.2) Aspartate Amino Transf (AST/SGOT) 37 U/L (15-37) Alanine Aminotransferase (ALT/SGPT) 25 U/L (12-78) Alkaline Phosphatase 50 U/L (45-117) Total Creatine Kinase 210 U/L (26-192) Creatine Kinase MB 2.9 ng/ml (0.5-3.6) Creatine Kinase MB Ratio 1.4 (0-3.0) Troponin I 0.027 ng/ml (0-0.045) Total Protein 6.2 gm/dl (6.4-8.2) Albumin 2.3 gm/dl (3.4-5.0) Lipase 41 U/L (73-393) Procalcitonin 0.23 ng/ml (0-0.5) Date/Time Source Procedure Growth Status 11/30/17 22:20 Nasal MRSA DNA Surveillance Screen - Final Specimen Negative for MRSA by DNA Probe Complete Assessment and Plan 72 year old female with COPD on home O2 direct admission from LTAC[facility] within [facility] intubated for acute hypoxic respiratory failure with a past medical history of COPD on home O2/Chronic respiratory failure, hyperlipidemia, GERD, chronic lower back pain, and depression who presents as a direct admit from LTAC, located within [facility] for Acute respiratory failure requiring intubation and sedation due to a believed COPD exacerbation and Flu A. Acute Hypoxic Hypercapnic Respiratory Failure - Intubation: Managed by ICU, Ventilator at TV of 450 and Rate of 18, FiO2 35% - appreciate ICU management of this Influenza A - Tamiflu 75mg PO BID 5 days COPD exacerbation - no consolidation on CXR - Continue solumedrol 40mg IV Q8H (on prednisone 10mg PO at home) - Continue Albuterol + Ipratropium - IV NS +20 meq KCl @ 100mls/hr - no pulmonary edema on CXR - Mert Mancilla. Will defer to ICU team but consider stopping vancomycin given MRSA swab negative - Blood and sputum cultures pending Normocytic Anemia - Hgb 10.1 -> 8.8 aspirin given at LTAC, located [facility] and patient on steroids - trend H&H, type and screen, FOB ordered - Continue pantoprazole 40mg IV Electrolyte disturbance - replace PO and K as per ICU protocols HLD - Simvastatin 40mg GERD - Switched omeprazole to Protonix Depression/anxiety - Consider restarting citalopram (QTc 452ms) VTE Prophylaxis - Heparin 5,000 q8h SQ Code Status - Full Resuscitation Disposition - continued ICU stay due to intubation and critically ill state Resident Physician Supervision Note: I have seen the patient. Discussed with Dr. Dee and agree with findings and plan as documented in the note. Any exceptions or clarifications are listed here : None Documented By: Amari Lawrence no HPI or ROS obtainable - onvent. comfortable. vitals noted, nad breathing unlabored acute respiratory failure from flu - vent management, tamiflu, supportive care otherwise as above
[2017-12-01] MEDS ORDERED: NURSING VERBAL MED ORDER ONE (08:45)
[2017-12-01] MEDS ORDERED: POT PHOSPHATE MONOBASIC W/ SOD TAB PO ONE (09:00)
[2017-12-01] MEDS ORDERED: OSELTAMIVIR PHOSPHATE SUSP 75 MG/12.5 ML UDP PO SCH (09:00)
[2017-12-01] MEDS ORDERED: VANCOMYCIN INJ 1,000 MG in SODIUM CHLORIDE 0.9% 250ML 250 ML IV SCH (09:00)
[2017-12-01] MEDS ORDERED: OSELTAMIVIR PHOSPHATE 75 MG CAP PO SCH (09:00)
[2017-12-01] MEDS ORDERED: VANCOMYCIN INJ 750 MG in SODIUM CHLORIDE 0.9% 250ML 250 ML IV SCH (09:00)
[2017-12-01] MEDS: NSS + 20MEQ KCL 1000ML 1,000 ML IV SCH ×2 (09:59→19:17)
[2017-12-01] MEDS: PANTOprazole INJ 40 MG in SYRINGE 0 ML IV SCH (09:59)
[2017-12-01] MEDS: POT PHOSPHATE MONOBASIC W/ SOD TAB PO SCH ×3 (12:37→21:23)
[2017-12-01] MEDS: METHYLPREDNISOLONE IV 40 MG in SYRINGE 0 ML IV SCH ×3 (12:37→23:48)
[2017-12-01 16:16] LABS: CKMB 2.4 ng/ml (0.5-3.6)
[2017-12-01 17:31] LABS: HEMATOCRIT 29.9 % (37-47); HEMOGLOBIN 9.5 g/dL (12.0-16.0)
--- NOTE | 2017-12-01 20:40 | Critical Care Progress Note ---
Critical Care Progress Note Date of Service Dec 01, 2017. Attending Dr. Barbour Subjective Review of system was not obtainable as the patient was vented and sedated, no events occurred overnight, the patient failed CPAP trial in the morning due to apnea, agitation was noted with reduction of sedation. Objective Vital signs are stable, her exam on 12/01/2017 showed thin lady currently intubated, distant breath sounds bilaterally without wheezing, S1-S2 regular rate and rhythm, abdomen is benign no edema. Assessment & Plan #1 acute hypercapnic on chronic hypercapnic respiratory failure. #2 COPD, gold level III, grade C. #3 influenza A. #4 no evidence of pneumonia. Plan: #1 continue with spontaneous breathing trial on a daily basis. #2 current steroids dose. #3 bronchodilators #4 PPI and DVT prophylaxis. #5 noted the patient had gram-negative rods in the sputum, awaiting further speciation. #6 continue current antibiotics. #7 hemodynamically stable. Discussed with the nursing staff, appreciate their input. CCT was 35 minutes. We'll update the family was they are at the bedside. Data Medications: Current Inpatient Medications Medications (Trade) Dose Ordered Sig/Peyman Route Start Time Stop Time Status Last Admin Dose Admin Heparin Sodium (Porcine) (Heparin Sq 5000 Unit/0.5ml) 5,000 unit Q8H SQ 12/01/17 06:00 12/31/17 05:59 12/01/17 12:38 5,000 UNIT Acetaminophen (Tylenol Tab) 650 mg Q4H PRN PO 11/30/17 22:15 12/30/17 22:14 Pantoprazole Sodium 40 mg/ Syringe 10 ml @ 5 mls/min DAILY@1100 IV 12/01/17 11:00 12/31/17 10:59 12/01/17 09:59 5 MLS/MIN Miscellaneous Information ([facility] Protocol For Hyperglycemia) 1 ea PRN PRN N/A 11/30/17 22:15 12/02/17 22:14 Levofloxacin 750 mg/Prmx 150 ml @ 100 mls/hr Q24H IV 12/01/17 02:00 12/08/17 01:59 12/01/17 01:41 100 MLS/HR Potassium Chloride/Sodium Chloride 1,000 ml @ 100 mls/hr Q10H IV 11/30/17 23:00 12/30/17 22:59 12/01/17 19:17 100 MLS/HR Simvastatin (Zocor Tab) 40 mg HS PO 12/01/17 21:00 12/31/17 20:59 Ipratropium [place] (Atrovent Hfa Inhaler) 4 puffs Q4R INH 12/01/17 04:00 12/31/17 03:59 12/01/17 15:53 4 PUFFS Albuterol (Ventolin Hfa Inhaler) 4 puffs Q4R INH 12/01/17 04:00 12/31/17 03:59 12/01/17 15:53 4 PUFFS Oseltamivir Phosphate (Tamiflu Susp) 75 mg BID PO 12/01/17 09:00 12/06/17 08:59 12/01/17 08:18 75 MG Potassium/ Phosphorus/Sodium (Phospha 250 Neutral 155-852-130 Mg) 1 tab QID PO 12/01/17 13:00 12/02/17 09:01 12/01/17 16:45 1 TAB Methylprednisolone Sodium Succinate 40 mg/Syringe 0.64 ml @ 1.5 mls/min Q6 IV 12/01/17 12:00 12/31/17 07:59 12/01/17 16:44 1.5 MLS/MIN I & O: 24-Hour Column 12/02/17 08:00 Intake Total 1020 ml Output Total 225 ml Balance 795 ml Vital Signs: Date Time Temp Pulse Resp B/P (MAP) Pulse Ox O2 Delivery O2 Flow Rate FiO2 12/01/17 20:00 35 12/01/17 20:00 100 Mechanical Ventilator 35 12/01/17 20:00 37.5 103 18 149/78 (101) 98 Mechanical Ventilator 35 12/01/17 18:23 94 18 133/68 (89) 97 Mechanical Ventilator 35 12/01/17 17:54 35 12/01/17 16:12 83 18 136/72 (93) 99 Mechanical Ventilator 35 12/01/17 16:00 35 12/01/17 16:00 Mechanical Ventilator 35 12/01/17 15:02 35 12/01/17 14:05 91 18 126/67 (86) 97 Mechanical Ventilator 35 12/01/17 12:00 37.0 88 18 131/66 (87) 99 Mechanical Ventilator 35 2/24/18 12:00 Mechanical Ventilator 35 12/01/17 12:00 35 12/01/17 11:24 35 12/01/17 10:00 93 18 121/66 (84) 97 Mechanical Ventilator 35 12/01/17 08:02 35 12/01/17 08:00 Mechanical Ventilator 35 12/01/17 08:00 35 12/01/17 08:00 87 18 97/61 (73) 100 Mechanical Ventilator 35 12/01/17 06:00 85 18 94/59 (71) 99 Mechanical Ventilator 35 12/01/17 05:14 35 12/01/17 04:00 100 Mechanical Ventilator 35 12/01/17 04:00 35 12/01/17 04:00 37.2 90 18 121/55 (77) 100 Mechanical Ventilator 30 12/01/17 03:18 35 12/01/17 02:00 84 18 93/58 (70) 100 Mechanical Ventilator 40 12/01/17 02:00 35 12/01/17 00:46 96 18 110/59 (76) 100 Mechanical Ventilator 40 12/01/17 00:31 106 18 137/55 (82) 94 Mechanical Ventilator 40 12/01/17 00:29 108 21 131/69 (89) 93 Mechanical Ventilator 40 12/01/17 00:16 91 18 119/64 (82) 98 Mechanical Ventilator 40 12/01/17 00:08 93 18 112/57 (75) 98 Mechanical Ventilator 40 12/01/17 00:01 37.4 87 18 82/56 (65) 100 Mechanical Ventilator 40 11/30/17 23:59 100 Mechanical Ventilator 40 11/30/17 23:59 40 11/30/17 23:44 35 11/30/17 22:20 37.8 112 19 108/53 99 Mechanical Ventilator 50 11/30/17 22:00 50 Laboratory Results: Last 24 Hours Test 11/30/17 22:15 11/30/17 22:56 11/30/17 23:29 12/01/17 00:05 Creatine Kinase MB Ratio 1.5 White Blood Count 6.79 K/uL Red Blood Count 3.33 M/uL Hemoglobin 10.1 g/dL Hematocrit 32.5 % Mean Corpuscular Volume 97.6 fL Mean Corpuscular Hemoglobin 30.3 pg Mean Corpuscular Hemoglobin Concent 31.1 g/dl Platelet Count 211 K/uL Mean Platelet Volume 10.3 fL Neutrophils (%) (Auto) 93.1 % Lymphocytes (%) (Auto) 3.5 % Monocytes (%) (Auto) 3.1 % Eosinophils (%) (Auto) 0.0 % Basophils (%) (Auto) 0.0 % Neutrophils # (Auto) 6.32 K/uL Lymphocytes # (Auto) 0.24 K/uL Monocytes # (Auto) 0.21 K/uL Eosinophils # (Auto) 0.00 K/uL Basophils # (Auto) 0.00 K/uL RDW Standard Deviation 51.5 fL RDW Coefficient of Variation 14.3 % Immature Granulocyte % (Auto) 0.3 % Immature Granulocyte # (Auto) 0.02 K/uL Prothrombin Time 10.3 SECONDS Prothromb Time International Ratio 1.0 Activated Partial Thromboplast Time 25.6 SECONDS Partial Thromboplastin Ratio 1.0 Sodium Level 137 mmol/L Potassium Level 4.2 mmol/L Chloride Level 102 mmol/L Carbon Dioxide Level 31 mmol/L Anion Gap 4.0 mmol/L Blood Urea Nitrogen 24 mg/dl Creatinine 0.58 mg/dl Est Creatinine Clear Calc Drug Dose 66.1 ml/min Estimated GFR () 107.5 Estimated GFR (Non- 92.7 BUN/Creatinine Ratio 40.9 Random Glucose 118 mg/dl Lactic Acid Level 1.5 mmol/L Calcium Level 8.0 mg/dl Phosphorus Level 2.1 mg/dl Magnesium Level 2.7 mg/dl Total Bilirubin 0.3 mg/dl Direct Bilirubin 0.1 mg/dl Aspartate Amino Transf (AST/SGOT) 49 U/L Alanine Aminotransferase (ALT/SGPT) 29 U/L Alkaline Phosphatase 58 U/L Total Creatine Kinase 343 U/L Creatine Kinase MB 5.1 ng/ml Troponin I 0.035 ng/ml Total Protein 6.9 gm/dl Albumin 2.6 gm/dl Globulin 4.3 gm/dl Albumin/Globulin Ratio 0.6 Lipase 57 U/L Thyroid Stimulating Hormone (TSH) 0.267 uIu/ml Blood Gas Sample Site R Radial Bedside Blood Gas pH (LAB) 7.29 Bedside Blood Gas pCO2 (LAB) 63 mmHg Bedside Blood Gas pO2 (LAB) 160 mmHg Bedside Blood Gas HCO3 (LAB) 30 meq/L Bedside Blood Gas Total CO2 32 mEq/l Bedside Blood Gas Base Excess (LAB) 4.0 meq/L Bedside Blood Gas O2 Saturation 99.0 % Roly Test Pass Oxygen Delivery Device Ventilator Bedside Oxygen Rate (breaths/min) 12 Blood Gas Minute Ventilation 5.7 Bedside FiO2 50 % Blood Gas Tidal Volume 450 Blood Gas PEEP 5 Bedside Glucose 134 mg/dl Test 12/01/17 01:25 12/01/17 01:50 12/01/17 02:16 12/01/17 06:26 Influenza Type A (RT-PCR) POS for Influ A Influenza Type B (RT-PCR) Neg for Influ B Urine Color ORANGE Urine Appearance CLOUDY Urine pH 5.5 Urine Specific [place] 1.035 Urine Protein 1+ Urine Glucose (UA) NEG Urine Ketones 2+ Urine Occult Blood 3+ Urine Nitrite NEG Urine Bilirubin NEG Urine Urobilinogen NEG Urine Leukocyte Esterase TRACE Urine WBC (Auto) 5-10 /hpf Urine RBC (Auto) >30 /hpf Urine Hyaline Casts (Auto) 1-5 /lpf Urine Epithelial Cells (Auto) >30 /lpf Urine Bacteria (Auto) NEG Blood Gas Sample Site R Radial Bedside Blood Gas pH (LAB) 7.41 Bedside Blood Gas pCO2 (LAB) 44 mmHg Bedside Blood Gas pO2 (LAB) 135 mmHg Bedside Blood Gas HCO3 (LAB) 28 meq/L Bedside Blood Gas Total CO2 29 mEq/l Bedside Blood Gas Base Excess (LAB) 3.0 meq/L Bedside Blood Gas O2 Saturation 99.0 % Roly Test Pass Oxygen Delivery Device Ventilator Bedside Oxygen Rate (breaths/min) 18 Blood Gas Minute Ventilation 8.3 Bedside FiO2 35 % Blood Gas Tidal Volume 450 Blood Gas PEEP 5 White Blood Count 5.22 K/uL Red Blood Count 2.88 M/uL Hemoglobin 8.8 g/dL Hematocrit 27.6 % Mean Corpuscular Volume 95.8 fL Mean Corpuscular Hemoglobin 30.6 pg Mean Corpuscular Hemoglobin Concent 31.9 g/dl Platelet Count 208 K/uL Mean Platelet Volume 10.2 fL Neutrophils (%) (Auto) 90.8 % Lymphocytes (%) (Auto) 4.0 % Monocytes (%) (Auto) 5.0 % Eosinophils (%) (Auto) 0.0 % Basophils (%) (Auto) 0.0 % Neutrophils # (Auto) 4.74 K/uL Lymphocytes # (Auto) 0.21 K/uL Monocytes # (Auto) 0.26 K/uL Eosinophils # (Auto) 0.00 K/uL Basophils # (Auto) 0.00 K/uL RDW Standard Deviation 50.4 fL RDW Coefficient of Variation 14.3 % Immature Granulocyte % (Auto) 0.2 % Immature Granulocyte # (Auto) 0.01 K/uL Red Blood Cell Morphology Unremarkable Prothrombin Time 10.9 SECONDS Prothromb Time International Ratio 1.0 Activated Partial Thromboplast Time 28.7 SECONDS Partial Thromboplastin Ratio 1.1 Sodium Level 136 mmol/L Potassium Level 4.3 mmol/L Chloride Level 104 mmol/L Carbon Dioxide Level 27 mmol/L Anion Gap 5.0 mmol/L Blood Urea Nitrogen 28 mg/dl Creatinine 0.44 mg/dl Est Creatinine Clear Calc Drug Dose 87.2 ml/min Estimated GFR () 117.7 Estimated GFR (Non- 101.6 BUN/Creatinine Ratio 62.5 Random Glucose 127 mg/dl Calcium Level 8.1 mg/dl Phosphorus Level 1.4 mg/dl Magnesium Level 2.4 mg/dl Total Bilirubin 0.3 mg/dl Direct Bilirubin < 0.1 mg/dl Aspartate Amino Transf (AST/SGOT) 37 U/L Alanine Aminotransferase (ALT/SGPT) 25 U/L Alkaline Phosphatase 50 U/L Total Creatine Kinase 210 U/L Creatine Kinase MB 2.9 ng/ml Creatine Kinase MB Ratio 1.4 Troponin I 0.027 ng/ml Total Protein 6.2 gm/dl Albumin 2.3 gm/dl Lipase 41 U/L Procalcitonin 0.23 ng/ml Test 12/01/17 11:03 12/01/17 15:42 12/01/17 17:23 Bedside Glucose 125 mg/dl Total Creatine Kinase 144 U/L Creatine Kinase MB 2.4 ng/ml Creatine Kinase MB Ratio 1.7 Troponin I 0.015 ng/ml Hemoglobin 9.5 g/dL Hematocrit 29.9 %
[2017-12-01] MEDS: SIMVASTATIN 40 MG TAB PO SCH (21:23)
[2017-12-01] MEDS ORDERED: MIDAZOLAM 125MG/250ML D5W 250 ML IV PRN (21:55)
[2017-12-02] VITALS (13 sets, daily range): BP systolic 129–159; BP diastolic 68–92; PULSE 71–96; TEMP 36.9–37.2; O2SAT 97–100
[2017-12-02] MEDS: LEVOFLOXACIN / D5W 750 MG in PREMIXED IN D5W 150 ML IV SCH (01:51)
[2017-12-02] MEDS: ALBUTEROL HFA 8 GM INHALER INH SCH ×6 (03:30→23:01)
[2017-12-02] MEDS: IPRATROPIUM BROMIDE HFA INHALER INH SCH ×7 (03:30→23:01)
[2017-12-02] MEDS: NSS + 20MEQ KCL 1000ML 1,000 ML IV SCH ×3 (05:52→23:40)
[2017-12-02] MEDS: METHYLPREDNISOLONE IV 40 MG in SYRINGE 0 ML IV SCH ×4 (05:52→23:38)
[2017-12-02] MEDS: HEPARIN SOD 5000 UNIT/0.5 ML CARP SQ SCH ×3 (05:53→21:12)
[2017-12-02 06:15] LABS: HEMATOCRIT 29.4 % (37-47); HEMOGLOBIN 9.3 g/dL (12.0-16.0); IG# 0.01 K/uL (0.00-0.02); LYMPH % 7.2 %; LYMPH ABS # 0.39 K/uL (1.2-3.4); MEAN CELL VOLUME 96.4 fL (80-100); MEAN CORPUSCULAR HEMOGLOBIN 30.5 pg (25-34); MEAN CORPUSCULAR HGB CONC 31.6 g/dl (32-36); MEAN PLATELET VOLUME 10.2 fL (7.4-10.4); MONO % 8.3 %; MONO ABS # 0.45 K/uL (0.11-0.59); NEUT % 84.3 %; NEUT ABS # 4.55 K/uL (1.4-6.5); PLATELET COUNT 191 K/uL (130-400); RED CELL DISTRIBUTION WIDTH CV 14.4 % (11.5-14.5); RED CELL DISTRIBUTION WIDTH SD 50.8 fL (36.4-46.3)
[2017-12-02 06:32] LABS: ALBUMIN 2.4 gm/dl (3.4-5.0); ALT/SGPT 25 U/L (12-78); AST/SGOT 32 U/L (15-37); BLOOD UREA NITROGEN 28 mg/dl (7-18); CALCIUM 8.4 mg/dl (8.5-10.1); CARBON DIOXIDE 27 mmol/L (21-32); CREATININE 0.41 mg/dl (0.60-1.20); GLUCOSE 125 mg/dl (70-99); LIPASE 62 U/L (73-393); POTASSIUM 4.1 mmol/L (3.5-5.1); SODIUM 141 mmol/L (136-145)
[2017-12-02 06:36] LABS: ALKALINE PHOSPHATASE 48 U/L (45-117); PHOSPHORUS 1.9 mg/dl (2.5-4.9); TOTAL PROTEIN 6.2 gm/dl (6.4-8.2)
[2017-12-02 06:37] LABS: PTT PATIENT 36.4 SECONDS (21.0-31.0)
--- NOTE | 2017-12-02 07:21 | DIAGNOSTIC IMAGING REPORT ---
CHEST ONE VIEW PORTABLE CLINICAL HISTORY: Respiratory failure COMPARISON STUDY: December 01, 2017 FINDINGS: There is severe pulmonary emphysema. There is an endotracheal tube 5 cm above the mehnaz. There is a nasogastric tube which passes into the stomach. There is minor blunting of the lateral costophrenic angles. There is no lobar consolidation.[ There is stable bibasilar densities likely atelectatic IMPRESSION: 1. Severe emphysema 2. No evidence of lobar consolidation 3. Stable bibasilar densities, likely atelectatic Electronically signed by: Wisam Martel M.D. 12/02/2017 7:20 AM Dictated Date/Time: 12/02/2017 7:19 AM
[2017-12-02] MEDS: OSELTAMIVIR PHOSPHATE SUSP 75 MG/12.5 ML UDP PO SCH ×2 (08:39→21:11)
[2017-12-02] MEDS: PANTOprazole INJ 40 MG in SYRINGE 0 ML IV SCH (08:39)
[2017-12-02] MEDS: POT PHOSPHATE MONOBASIC W/ SOD TAB PO SCH (08:39)
--- NOTE | 2017-12-02 09:17 | Family Medicine Progress Note ---
Progress Note Date of Service Dec 02, 2017. Subjective Pt evaluation today including: physical exam, chart review, lab review, review of studies, review of inpatient medication list Voiding: kat catheter in place Patient appears slightly agitated in bed. Eyes open and pupils equal. Not shaking or nodding head to questions. Additional Comments: unable to obtain due to sedation/comprehension/agitation Medications Current Inpatient Medications Medications (Trade) Dose Ordered Sig/Peyman Route Start Time Stop Time Status Last Admin Dose Admin Heparin Sodium (Porcine) (Heparin Sq 5000 Unit/0.5ml) 5,000 unit Q8H SQ 12/01/17 06:00 12/31/17 05:59 12/02/17 05:53 5,000 UNIT Acetaminophen (Tylenol Tab) 650 mg Q4H PRN PO 11/30/17 22:15 12/30/17 22:14 Pantoprazole Sodium 40 mg/ Syringe 10 ml @ 5 mls/min DAILY@1100 IV 12/01/17 11:00 12/31/17 10:59 12/02/17 08:39 5 MLS/MIN Miscellaneous Information ([facility] Protocol For Hyperglycemia) 1 ea PRN PRN N/A 11/30/17 22:15 12/02/17 22:14 Levofloxacin 750 mg/Prmx 150 ml @ 100 mls/hr Q24H IV 12/01/17 02:00 12/08/17 01:59 12/02/17 01:51 100 MLS/HR Potassium Chloride/Sodium Chloride 1,000 ml @ 100 mls/hr Q10H IV 11/30/17 23:00 12/30/17 22:59 12/02/17 05:52 100 MLS/HR Simvastatin (Zocor Tab) 40 mg HS PO 12/01/17 21:00 12/31/17 20:59 12/01/17 21:23 40 MG Ipratropium [place] (Atrovent Hfa Inhaler) 4 puffs Q4R INH 12/01/17 04:00 12/31/17 03:59 12/02/17 07:48 4 PUFFS Albuterol (Ventolin Hfa Inhaler) 4 puffs Q4R INH 12/01/17 04:00 12/31/17 03:59 12/02/17 07:48 4 PUFFS Oseltamivir Phosphate (Tamiflu Susp) 75 mg BID PO 12/01/17 09:00 12/06/17 08:59 12/02/17 08:39 75 MG Methylprednisolone Sodium Succinate 40 mg/Syringe 0.64 ml @ 1.5 mls/min Q6 IV 12/01/17 12:00 12/31/17 07:59 12/02/17 05:52 1.5 MLS/MIN Midazolam HCl 250 ml @ 0 mls/hr Q0M PRN IV 12/01/17 21:55 12/31/17 21:54 Objective Vital Signs Date Time Temp Pulse Resp B/P (MAP) Pulse Ox O2 Delivery O2 Flow Rate FiO2 12/02/17 08:00 Mechanical Ventilator 35 12/02/17 08:00 35 12/02/17 08:00 82 20 156/74 (101) 100 Mechanical Ventilator 35 12/02/17 07:48 35 12/02/17 06:00 88 22 148/72 (97) 99 Mechanical Ventilator 35 12/02/17 05:50 35 12/02/17 04:00 37.2 85 21 139/76 (97) 99 Mechanical Ventilator 35 12/02/17 04:00 35 12/02/17 04:00 100 Mechanical Ventilator 35 12/02/17 02:00 96 24 151/76 (101) 97 Mechanical Ventilator 35 12/02/17 02:00 35 12/02/17 00:01 36.9 86 20 159/92 (114) 99 Mechanical Ventilator 35 12/01/17 23:59 35 12/01/17 23:59 100 Mechanical Ventilator 35 12/01/17 23:15 35 12/01/17 22:00 77 18 132/71 (91) 100 Mechanical Ventilator 35 12/01/17 20:54 35 12/01/17 20:00 35 12/01/17 20:00 100 Mechanical Ventilator 35 12/01/17 20:00 37.5 103 18 149/78 (101) 98 Mechanical Ventilator 35 12/01/17 18:23 94 18 133/68 (89) 97 Mechanical Ventilator 35 12/01/17 17:54 35 12/01/17 16:12 83 18 136/72 (93) 99 Mechanical Ventilator 35 12/01/17 16:00 35 12/01/17 16:00 Mechanical Ventilator 35 12/01/17 15:02 35 12/01/17 14:05 91 18 126/67 (86) 97 Mechanical Ventilator 35 12/01/17 12:00 37.0 88 18 131/66 (87) 99 Mechanical Ventilator 35 12/01/17 12:00 Mechanical Ventilator 35 12/01/17 12:00 35 12/01/17 11:24 35 12/01/17 10:00 93 18 121/66 (84) 97 Mechanical Ventilator 35 Physical Exam ENT: + pertinent finding (intubated) Respiratory/Chest: + crackles (coarse crackles throughout, no wheezing) Cardiovascular: regular rate, rhythm (quiet), no murmur Abdomen: normal bowel sounds, non tender, soft Extremities: no pedal edema Neurologic/Psychiatric: + pertinent finding (sedated, appears agitated when seen) Laboratory Results 12/02/17 06:02 Red Blood Count 3.05, Mean Corpuscular Volume 96.4, Mean Corpuscular Hemoglobin 30.5, Mean Corpuscular Hemoglobin Concent 31.6, Mean Platelet Volume 10.2, Neutrophils (%) (Auto) 84.3, Lymphocytes (%) (Auto) 7.2, Monocytes (%) (Auto) 8.3, Eosinophils (%) (Auto) 0.0, Basophils (%) (Auto) 0.0, Neutrophils # (Auto) 4.55, Lymphocytes # (Auto) 0.39, Monocytes # (Auto) 0.45, Eosinophils # (Auto) 0.00, Basophils # (Auto) 0.00 12/02/17 06:02 Test 12/01/17 15:42 12/02/17 02:05 12/02/17 05:20 12/02/17 05:55 Total Creatine Kinase 144 U/L (26-192) Creatine Kinase MB 2.4 ng/ml (0.5-3.6) Creatine Kinase MB Ratio 1.7 (0-3.0) Troponin I 0.015 ng/ml (0-0.045) Stool Occult Blood NEGATIVE (NEGATIVE) Blood Gas Sample Site R Radial Bedside Blood Gas pH (LAB) 7.43 (7.35-7.45) Bedside Blood Gas pCO2 (LAB) 42 mmHg (35-46) Bedside Blood Gas pO2 (LAB) 97 mmHg (80-95) Bedside Blood Gas HCO3 (LAB) 28 meq/L (19-24) Bedside Blood Gas Total CO2 29 mEq/l (24-31) Bedside Blood Gas Base Excess (LAB) 4.0 meq/L (-9-1.8) Bedside Blood Gas O2 Saturation 98.0 % (90-95) Roly Test Pass Oxygen Delivery Device Ventilator Bedside Oxygen Rate (breaths/min) 18 Blood Gas Minute Ventilation 6.6 Bedside FiO2 35 % Blood Gas Tidal Volume 450 Blood Gas PEEP 5 Bedside Glucose 95 mg/dl (70-90) Test 12/02/17 06:02 White Blood Count 5.40 K/uL (4.8-10.8) Red Blood Count 3.05 M/uL (4.2-5.4) Hemoglobin 9.3 g/dL (12.0-16.0) Hematocrit 29.4 % (37-47) Mean Corpuscular Volume 96.4 fL (80-100) Mean Corpuscular Hemoglobin 30.5 pg (25-34) Mean Corpuscular Hemoglobin Concent 31.6 g/dl (32-36) Platelet Count 191 K/uL (130-400) Mean Platelet Volume 10.2 fL (7.4-10.4) Neutrophils (%) (Auto) 84.3 % Lymphocytes (%) (Auto) 7.2 % Monocytes (%) (Auto) 8.3 % Eosinophils (%) (Auto) 0.0 % Basophils (%) (Auto) 0.0 % Neutrophils # (Auto) 4.55 K/uL (1.4-6.5) Lymphocytes # (Auto) 0.39 K/uL (1.2-3.4) Monocytes # (Auto) 0.45 K/uL (0.11-0.59) Eosinophils # (Auto) 0.00 K/uL (0-0.5) Basophils # (Auto) 0.00 K/uL (0-0.2) RDW Standard Deviation 50.8 fL (36.4-46.3) RDW Coefficient of Variation 14.4 % (11.5-14.5) Immature Granulocyte % (Auto) 0.2 % Immature Granulocyte # (Auto) 0.01 K/uL (0.00-0.02) Prothrombin Time 10.8 SECONDS (9.0-12.0) Prothromb Time International Ratio 1.0 (0.9-1.1) Activated Partial Thromboplast Time 36.4 SECONDS (21.0-31.0) Partial Thromboplastin Ratio 1.4 Anion Gap 5.0 mmol/L (3-11) Est Creatinine Clear Calc Drug Dose 101.5 ml/min Estimated GFR () 120.5 Estimated GFR (Non- 103.9 BUN/Creatinine Ratio 68.3 (10-20) Calcium Level 8.4 mg/dl (8.5-10.1) Phosphorus Level 1.9 mg/dl (2.5-4.9) Magnesium Level 2.3 mg/dl (1.8-2.4) Total Bilirubin 0.2 mg/dl (0.2-1) Direct Bilirubin < 0.1 mg/dl (0-0.2) Aspartate Amino Transf (AST/SGOT) 32 U/L (15-37) Alanine Aminotransferase (ALT/SGPT) 25 U/L (12-78) Alkaline Phosphatase 48 U/L (45-117) Total Protein 6.2 gm/dl (6.4-8.2) Albumin 2.4 gm/dl (3.4-5.0) Lipase 62 U/L (73-393) Assessment and Plan 72 year old female with COPD on home O2 direct admission from [facility] intubated for acute hypoxic respiratory failure with a past medical history of COPD on home O2/Chronic respiratory failure, hyperlipidemia, GERD, chronic lower back pain, and depression who presents as a direct admit from [facility] for Acute respiratory failure requiring intubation and sedation due to a believed COPD exacerbation and Flu A. Acute Hypoxic Hypercapnic Respiratory Failure - Intubation: Managed by ICU, Ventilator at TV of 450 and breathing over (26) rate of 18, FiO2 35% - appreciate ICU management Influenza A - Tamiflu 75mg PO BID 5 days COPD exacerbation - no consolidation on CXR - Continue solumedrol 40mg IV Q6H (on prednisone 10mg PO at home) - Continue Albuterol + Ipratropium - IV NS +20 meq KCl @ 100mls/hr - no pulmonary edema on CXR - Zosyn, Levaquin. Will defer to ICU team but consider stopping vancomycin given MRSA swab negative - Blood culture pending - Sputum culture -pseudomonas sensitive to levaquin Normocytic Anemia - Hgb 10.1 -> 8.8 aspirin given at [facility] and patient on steroids - trend - Continue pantoprazole 40mg IV Electrolyte disturbance - replace PO and K as per ICU protocols HLD - Simvastatin 40mg GERD - Switched omeprazole to Protonix Depression/anxiety - Consider restarting citalopram (QTc 452ms) VTE Prophylaxis - Heparin 5,000 q8h SQ Code Status - Full Resuscitation Disposition - continued ICU stay due to intubated and critically ill state Resident Physician Supervision Note: Pt seen no HPI or ROS obtainable due to intubated/ventilated state. Discussed with Dr. Price and agree with findings and plan as documented in the note. Any exceptions or clarifications are listed here: None Documented By: Amari Lawrence failed wean trial vitals noted nad on vent no pallor breathing unlabored on vent acute respiratory failure related to flu and COPD -continue vent support, tamiflu, levaquin (sputum culture showing gram neg) -otherwise as above Resident Tracking Resident Involvement: Resident Care Provided Care Provided: Adult Hospital Medicine
--- NOTE | 2017-12-02 12:24 | Critical Care Progress Note ---
Critical Care Progress Note Date of Service Dec 02, 2017. Attending Dr. Barbour Subjective Review of system was not obtainable as the patient was intubated and sedated. Objective Vital signs are stable, her exam on 12/01/2017 showed thin lady currently intubated, distant breath sounds bilaterally without wheezing, S1-S2 regular rate and rhythm, abdomen is benign no edema. Her vital signs on 12/02/2017 has been stable, O2 saturation is 97% on 35%, S1- S2 regular rate and rhythm with systolic ejection murmur, distant breath sounds no wheezing or crackles no rhonchi, abdomen is benign, no edema. Assessment & Plan #1 acute hypercapnic on chronic hypercapnic respiratory failure. #2 COPD, gold level III, grade C. #3 influenza A. #4 no evidence of pneumonia on initial chest x-ray however increased markings were noted on the lower lobes on the repeat chest x-ray today. The patient is growing Pseudomonas which is pansensitive even to Levaquin. Plan: #1 continue with spontaneous breathing trial on a daily basis. The patient tolerated higher PSV, I was started PSV of 25 and taper it by 5 every hour. Once the patient at 5 and 10 of PSV, I would extubate her. Likely she will be extubated to a BiPAP. #2 current steroids dose. Solu-Medrol 40 mg IV every 6 #3 bronchodilators #4 PPI and DVT prophylaxis. #5 noted the patient had gram-negative rods in the sputum, Pseudomonas. Sensitive to Levaquin.. #6 I will stop sedation. #7 hemodynamically stable. Discussed with the nursing staff, appreciate their input. #8 I will hold off on tube feeding as I'm planning to extubate her. #9 BiPAP to the bedside upon extubation. #10 I will update the family once they are available. CCT was 35 minutes. Data Medications: Current Inpatient Medications Medications (Trade) Dose Ordered Sig/Peyman Route Start Time Stop Time Status Last Admin Dose Admin Heparin Sodium (Porcine) (Heparin Sq 5000 Unit/0.5ml) 5,000 unit Q8H SQ 12/01/17 06:00 12/31/17 05:59 12/02/17 05:53 5,000 UNIT Acetaminophen (Tylenol Tab) 650 mg Q4H PRN PO 11/30/17 22:15 12/30/17 22:14 Pantoprazole Sodium 40 mg/ Syringe 10 ml @ 5 mls/min DAILY@1100 IV 12/01/17 11:00 12/31/17 10:59 12/02/17 08:39 5 MLS/MIN Miscellaneous Information (Icu Protocol For Hyperglycemia) 1 ea PRN PRN N/A 11/30/17 22:15 12/02/17 22:14 Levofloxacin 750 mg/Prmx 150 ml @ 100 mls/hr Q24H IV 12/01/17 02:00 12/08/17 01:59 12/02/17 01:51 100 MLS/HR Potassium Chloride/Sodium Chloride 1,000 ml @ 100 mls/hr Q10H IV 11/30/17 23:00 12/30/17 22:59 12/02/17 05:52 100 MLS/HR Simvastatin (Zocor Tab) 40 mg HS PO 12/01/17 21:00 12/31/17 20:59 12/01/17 21:23 40 MG Ipratropium [place] (Atrovent Hfa Inhaler) 4 puffs Q4R INH 12/01/17 04:00 12/31/17 03:59 12/02/17 11:21 4 PUFFS Albuterol (Ventolin Hfa Inhaler) 4 puffs Q4R INH 12/01/17 04:00 12/31/17 03:59 12/02/17 11:21 4 PUFFS Oseltamivir Phosphate (Tamiflu Susp) 75 mg BID PO 12/01/17 09:00 12/06/17 08:59 12/02/17 08:39 75 MG Methylprednisolone Sodium Succinate 40 mg/Syringe 0.64 ml @ 1.5 mls/min Q6 IV 12/01/17 12:00 12/31/17 07:59 12/02/17 11:48 1.5 MLS/MIN Midazolam HCl 250 ml @ 0 mls/hr Q0M PRN IV 12/01/17 21:55 12/31/17 21:54 12/02/17 09:50 8 MLS/HR Vital Signs: Date Time Temp Pulse Resp B/P (MAP) Pulse Ox O2 Delivery O2 Flow Rate FiO2 12/02/17 11:23 35 12/02/17 10:34 72 10 141/76 (97) 100 CPAP 35 Mechanical Ventilator 12/02/17 08:00 Mechanical Ventilator 35 12/02/17 08:00 35 12/02/17 08:00 82 20 156/74 (101) 100 Mechanical Ventilator 35 12/02/17 07:48 35 12/02/17 06:00 88 22 148/72 (97) 99 Mechanical Ventilator 35 12/02/17 05:50 35 12/02/17 04:00 37.2 85 21 139/76 (97) 99 Mechanical Ventilator 35 12/02/17 04:00 35 12/02/17 04:00 100 Mechanical Ventilator 35 12/02/17 02:00 96 24 151/76 (101) 97 Mechanical Ventilator 35 12/02/17 02:00 35 12/02/17 00:01 36.9 86 20 159/92 (114) 99 Mechanical Ventilator 35 12/01/17 23:59 35 12/01/17 23:59 100 Mechanical Ventilator 35 12/01/17 23:15 35 12/01/17 22:00 77 18 132/71 (91) 100 Mechanical Ventilator 35 12/01/17 20:54 35 12/01/17 20:00 35 12/01/17 20:00 100 Mechanical Ventilator 35 12/01/17 20:00 37.5 103 18 149/78 (101) 98 Mechanical Ventilator 35 12/01/17 18:23 94 18 133/68 (89) 97 Mechanical Ventilator 35 12/01/17 17:54 35 12/01/17 16:12 83 18 136/72 (93) 99 Mechanical Ventilator 35 12/01/17 16:00 35 12/01/17 16:00 Mechanical Ventilator 35 12/01/17 15:02 35 12/01/17 14:05 91 18 126/67 (86) 97 Mechanical Ventilator 35 Laboratory Results: Last 24 Hours Test 12/01/17 15:42 12/01/17 17:23 12/01/17 23:50 12/02/17 02:05 Total Creatine Kinase 144 U/L Creatine Kinase MB 2.4 ng/ml Creatine Kinase MB Ratio 1.7 Troponin I 0.015 ng/ml Hemoglobin 9.5 g/dL Hematocrit 29.9 % Bedside Glucose 138 mg/dl Stool Occult Blood NEGATIVE Test 12/02/17 05:20 12/02/17 05:55 12/02/17 06:02 2/25/18 11:49 Blood Gas Sample Site R Radial Bedside Blood Gas pH (LAB) 7.43 Bedside Blood Gas pCO2 (LAB) 42 mmHg Bedside Blood Gas pO2 (LAB) 97 mmHg Bedside Blood Gas HCO3 (LAB) 28 meq/L Bedside Blood Gas Total CO2 29 mEq/l Bedside Blood Gas Base Excess (LAB) 4.0 meq/L Bedside Blood Gas O2 Saturation 98.0 % Roly Test Pass Oxygen Delivery Device Ventilator Bedside Oxygen Rate (breaths/min) 18 Blood Gas Minute Ventilation 6.6 Bedside FiO2 35 % Blood Gas Tidal Volume 450 Blood Gas PEEP 5 Bedside Glucose 95 mg/dl 118 mg/dl White Blood Count 5.40 K/uL Red Blood Count 3.05 M/uL Hemoglobin 9.3 g/dL Hematocrit 29.4 % Mean Corpuscular Volume 96.4 fL Mean Corpuscular Hemoglobin 30.5 pg Mean Corpuscular Hemoglobin Concent 31.6 g/dl Platelet Count 191 K/uL Mean Platelet Volume 10.2 fL Neutrophils (%) (Auto) 84.3 % Lymphocytes (%) (Auto) 7.2 % Monocytes (%) (Auto) 8.3 % Eosinophils (%) (Auto) 0.0 % Basophils (%) (Auto) 0.0 % Neutrophils # (Auto) 4.55 K/uL Lymphocytes # (Auto) 0.39 K/uL Monocytes # (Auto) 0.45 K/uL Eosinophils # (Auto) 0.00 K/uL Basophils # (Auto) 0.00 K/uL RDW Standard Deviation 50.8 fL RDW Coefficient of Variation 14.4 % Immature Granulocyte % (Auto) 0.2 % Immature Granulocyte # (Auto) 0.01 K/uL Prothrombin Time 10.8 SECONDS Prothromb Time International Ratio 1.0 Activated Partial Thromboplast Time 36.4 SECONDS Partial Thromboplastin Ratio 1.4 Sodium Level 141 mmol/L Potassium Level 4.1 mmol/L Chloride Level 109 mmol/L Carbon Dioxide Level 27 mmol/L Anion Gap 5.0 mmol/L Blood Urea Nitrogen 28 mg/dl Creatinine 0.41 mg/dl Est Creatinine Clear Calc Drug Dose 101.5 ml/min Estimated GFR () 120.5 Estimated GFR (Non- 103.9 BUN/Creatinine Ratio 68.3 Random Glucose 125 mg/dl Calcium Level 8.4 mg/dl Phosphorus Level 1.9 mg/dl Magnesium Level 2.3 mg/dl Total Bilirubin 0.2 mg/dl Direct Bilirubin < 0.1 mg/dl Aspartate Amino Transf (AST/SGOT) 32 U/L Alanine Aminotransferase (ALT/SGPT) 25 U/L Alkaline Phosphatase 48 U/L Total Protein 6.2 gm/dl Albumin 2.4 gm/dl Lipase 62 U/L
[2017-12-02] MEDS: DexMEDEtomidine HCL IV 200 MCG in SODIUM CHLORIDE 0.9% 50ML 48 ML IV PRN ×2 (13:42→22:14)
[2017-12-02] MEDS: SIMVASTATIN 40 MG TAB PO SCH (21:11)
[2017-12-03] VITALS (15 sets, daily range): BP systolic 128–154; BP diastolic 68–91; PULSE 60–99; TEMP 36.5; O2SAT 94–100
[2017-12-03] MEDS: LEVOFLOXACIN / D5W 750 MG in PREMIXED IN D5W 150 ML IV SCH (01:47)
[2017-12-03] MEDS: ALBUTEROL HFA 8 GM INHALER INH SCH ×2 (04:00→07:51)
[2017-12-03] MEDS: IPRATROPIUM BROMIDE HFA INHALER INH SCH ×2 (04:00→07:28)
[2017-12-03 05:05] LABS: BASO % 0.2 %; BASO ABS # 0.01 K/uL (0-0.2); HEMATOCRIT 28.9 % (37-47); HEMOGLOBIN 9.1 g/dL (12.0-16.0); IG# 0.01 K/uL (0.00-0.02); LYMPH % 6.1 %; LYMPH ABS # 0.28 K/uL (1.2-3.4); MEAN CELL VOLUME 95.1 fL (80-100); MEAN CORPUSCULAR HEMOGLOBIN 29.9 pg (25-34); MEAN CORPUSCULAR HGB CONC 31.5 g/dl (32-36); MEAN PLATELET VOLUME 10.4 fL (7.4-10.4); MONO % 5.2 %; MONO ABS # 0.24 K/uL (0.11-0.59); NEUT % 88.3 %; NEUT ABS # 4.04 K/uL (1.4-6.5); PLATELET COUNT 157 K/uL (130-400); RED CELL DISTRIBUTION WIDTH CV 14.4 % (11.5-14.5); RED CELL DISTRIBUTION WIDTH SD 50.3 fL (36.4-46.3); WHITE BLOOD COUNT 4.58 K/uL (4.8-10.8)
[2017-12-03 05:21] LABS: INR 1.1 (0.9-1.1)
[2017-12-03 05:26] LABS: ALBUMIN 2.2 gm/dl (3.4-5.0); ALT/SGPT 26 U/L (12-78); AST/SGOT 24 U/L (15-37); BLOOD UREA NITROGEN 31 mg/dl (7-18); CALCIUM 8.2 mg/dl (8.5-10.1); CARBON DIOXIDE 28 mmol/L (21-32); CREATININE 0.42 mg/dl (0.60-1.20); GLUCOSE 149 mg/dl (70-99); LIPASE 71 U/L (73-393); POTASSIUM 4.6 mmol/L (3.5-5.1); PTT PATIENT 45.9 SECONDS (21.0-31.0); SODIUM 142 mmol/L (136-145)
[2017-12-03 05:30] LABS: ALKALINE PHOSPHATASE 46 U/L (45-117); PHOSPHORUS 2.5 mg/dl (2.5-4.9); TOTAL PROTEIN 5.9 gm/dl (6.4-8.2)
[2017-12-03] MEDS: METHYLPREDNISOLONE IV 40 MG in SYRINGE 0 ML IV SCH ×3 (06:21→21:16)
[2017-12-03] MEDS: HEPARIN SOD 5000 UNIT/0.5 ML CARP SQ SCH ×2 (06:24→21:16)
[2017-12-03] MEDS ORDERED: FUROSEMIDE 40 MG/4 ML VIAL ONE (07:21)
[2017-12-03] MEDS: OSELTAMIVIR PHOSPHATE SUSP 75 MG/12.5 ML UDP PO SCH ×2 (07:29→21:00)
[2017-12-03] MEDS ORDERED: NURSING VERBAL MED ORDER ONE ×2 (07:30→22:45)
[2017-12-03] MEDS ORDERED: ICU ELECTROLYTE REPLACEMENT PROTOCOL PRN (08:45)
[2017-12-03] MEDS ORDERED: POTASSIUM CHLORIDE 20 MEQ/15 ML UDC PO ONE (08:45)
[2017-12-03] MEDS ORDERED: ALBUTEROL 0.5% NEB SOLN 2.5 MG/0.5 ML VIAL INH PRN (11:15)
[2017-12-03] MEDS: PANTOprazole INJ 40 MG in SYRINGE 0 ML IV SCH (11:50)
[2017-12-03] MEDS ORDERED: MoRPHine SULFATE 2 MG/ML CARP ONE (15:28)
--- NOTE | 2017-12-03 18:23 | Critical Care Progress Note ---
Critical Care Progress Note Date of Service Dec 03, 2017. ICU Day ICU Day Number: [address] Manuel Subjective No overnight events Held Precedex This morning became more anxious, restarted Precedex Follows complex commands Objective General: Vital signs reviewed Neuro RASS score: 1, following complex commands Cardiovascular: S1-S2, tachycardia Pulmonary increased I to E ratio, distant lung sounds Abdomen: Soft nontender nondistended no hepato-splenomegaly Extremities, normal capillary refill, no clubbing no cyanosis no edema Assessment & Plan Reason Critically Ill: End-stage COPD, hypoxic respiratory failure, influenza A PLAN: Neuro: Convert to as needed sedation Resp: End-stage COPD * Decreased corticosteroids * Patient was successfully extubated * Discussion regarding goals of care, patient does not want resuscitation or intubation * If the patient continues to backslide from a respiratory standpoint we would transition to comfort measures, this was discussed in the presence of the patient's , sister, as well as the patient CV: Tachycardia Fluids/Renal: Maintain euvolemic ID: Tamiflu for 5 days Pansensitive Pseudomonas, Levaquin for 10 days total of effective therapy GI/Nutrition: Restart diet once passing bedside swallow evaluation Heme: Continue DVT prophylaxis Endocrine: Blood sugar management per ICU protocol As mentioned above an extensive discussion with the patient prior to extubation as well as after extubation which also included the patient's and the patient's sister. All were in agreement that the patient would not want reintubation and events of respiratory failure nor would she want resuscitation in event of cardiac arrest. Accordingly I have changed her CODE STATUS to DO NOT RESUSCITATE I have personally spent 50 minutes of critical care time in the direct management of this patient. This is a life/limb threatening event. This includes time spent evaluating patient, direct bedside care, chart review, placing orders, interpretation of diagnostic studies, discussion with consultants, patient, and/or family members regarding treatment decisions, as well as other required patient management activities. This time is exclusive of all separately billable procedures, and teaching time and separate from and in addition to any other critical care service time. Data Medications: Current Inpatient Medications Medications (Trade) Dose Ordered Sig/Peyman Route Start Time Stop Time Status Last Admin Dose Admin Heparin Sodium (Porcine) (Heparin Sq 5000 Unit/0.5ml) 5,000 unit Q8H SQ 12/01/17 06:00 12/31/17 05:59 12/03/17 06:24 5,000 UNIT Acetaminophen (Tylenol Tab) 650 mg Q4H PRN PO 11/30/17 22:15 12/30/17 22:14 Pantoprazole Sodium 40 mg/ Syringe 10 ml @ 5 mls/min DAILY@1100 IV 12/01/17 11:00 12/31/17 10:59 12/02/17 08:39 5 MLS/MIN Levofloxacin 750 mg/Prmx 150 ml @ 100 mls/hr Q24H IV 12/01/17 02:00 12/08/17 01:59 12/03/17 01:47 100 MLS/HR Potassium Chloride/Sodium Chloride 1,000 ml @ 100 mls/hr Q10H IV 11/30/17 23:00 12/30/17 22:59 12/02/17 23:40 100 MLS/HR Simvastatin (Zocor Tab) 40 mg HS PO 12/01/17 21:00 12/31/17 20:59 12/02/17 21:11 40 MG Ipratropium [place] (Atrovent Hfa Inhaler) 4 puffs Q4R INH 12/01/17 04:00 12/31/17 03:59 12/03/17 07:28 4 PUFFS Albuterol (Ventolin Hfa Inhaler) 4 puffs Q4R INH 12/01/17 04:00 12/31/17 03:59 12/03/17 04:00 4 PUFFS Oseltamivir Phosphate (Tamiflu Susp) 75 mg BID PO 12/01/17 09:00 12/06/17 08:59 12/03/17 07:29 75 MG Methylprednisolone Sodium Succinate 40 mg/Syringe 0.64 ml @ 1.5 mls/min Q6 IV 12/01/17 12:00 12/31/17 07:59 12/03/17 06:21 1.5 MLS/MIN Dexmedetomidine HCl 200 mcg/ Sodium Chloride 50 ml @ 0 mls/hr Q0M PRN IV 12/02/17 13:02 12/06/17 13:01 12/02/17 22:14 7.1 MLS/HR Vital Signs: Date Time Temp Pulse Resp B/P (MAP) Pulse Ox O2 Delivery O2 Flow Rate FiO2 12/03/17 07:26 35 12/03/17 06:00 73 18 128/68 (88) 95 Mechanical Ventilator 35 12/03/17 05:15 35 12/03/17 04:00 99 Mechanical Ventilator 35 12/03/17 04:00 35 12/03/17 04:00 36.5 60 21 147/74 (98) 99 Mechanical Ventilator 35 12/03/17 02:15 35 12/03/17 02:01 63 18 147/84 (105) 99 Mechanical Ventilator 35 12/03/17 02:00 63 18 147/84 (105) 99 Mechanical Ventilator 35 12/03/17 00:01 36.5 66 21 154/76 (102) 99 Mechanical Ventilator 35 12/02/17 23:59 99 Mechanical Ventilator 35 12/02/17 23:59 35 12/02/17 23:01 35 12/02/17 22:00 81 23 141/72 (95) 98 Mechanical Ventilator 35 12/02/17 21:05 35 12/02/17 20:00 99 Mechanical Ventilator 35 12/02/17 20:00 37.1 85 23 148/76 (100) 100 Mechanical Ventilator 35 12/02/17 20:00 35 12/02/17 18:02 37.2 71 18 129/68 (88) 100 Mechanical Ventilator 35 12/02/17 18:00 35 12/02/17 16:00 82 20 99 CPAP 35 Mechanical Ventilator 12/02/17 16:00 35 12/02/17 16:00 CPAP 35 Mechanical Ventilator 12/02/17 15:02 35 12/02/17 14:03 88 22 132/73 (92) 100 Mechanical Ventilator 35 12/02/17 12:22 37.2 93 26 137/82 (100) 98 CPAP 35 Mechanical Ventilator 12/02/17 12:00 CPAP 35 Mechanical Ventilator 12/02/17 12:00 35 12/02/17 11:23 35 12/02/17 10:34 72 10 141/76 (97) 100 CPAP 35 Mechanical Ventilator 12/02/17 08:00 Mechanical Ventilator 35 12/02/17 08:00 35 12/02/17 08:00 82 20 156/74 (101) 100 Mechanical Ventilator 35 Laboratory Results: Last 24 Hours Test 12/02/17 11:49 12/02/17 18:10 12/02/17 23:42 12/03/17 04:32 Bedside Glucose 118 mg/dl 126 mg/dl 137 mg/dl White Blood Count 4.58 K/uL Red Blood Count 3.04 M/uL Hemoglobin 9.1 g/dL Hematocrit 28.9 % Mean Corpuscular Volume 95.1 fL Mean Corpuscular Hemoglobin 29.9 pg Mean Corpuscular Hemoglobin Concent 31.5 g/dl Platelet Count 157 K/uL Mean Platelet Volume 10.4 fL Neutrophils (%) (Auto) 88.3 % Lymphocytes (%) (Auto) 6.1 % Monocytes (%) (Auto) 5.2 % Eosinophils (%) (Auto) 0.0 % Basophils (%) (Auto) 0.2 % Neutrophils # (Auto) 4.04 K/uL Lymphocytes # (Auto) 0.28 K/uL Monocytes # (Auto) 0.24 K/uL Eosinophils # (Auto) 0.00 K/uL Basophils # (Auto) 0.01 K/uL RDW Standard Deviation 50.3 fL RDW Coefficient of Variation 14.4 % Immature Granulocyte % (Auto) 0.2 % Immature Granulocyte # (Auto) 0.01 K/uL Prothrombin Time 11.2 SECONDS Prothromb Time International Ratio 1.1 Activated Partial Thromboplast Time 45.9 SECONDS Partial Thromboplastin Ratio 1.8 Sodium Level 142 mmol/L Potassium Level 4.6 mmol/L Chloride Level 110 mmol/L Carbon Dioxide Level 28 mmol/L Anion Gap 4.0 mmol/L Blood Urea Nitrogen 31 mg/dl Creatinine 0.42 mg/dl Est Creatinine Clear Calc Drug Dose 99.1 ml/min Estimated GFR () 119.5 Estimated GFR (Non- 103.1 BUN/Creatinine Ratio 74.0 Random Glucose 149 mg/dl Calcium Level 8.2 mg/dl Phosphorus Level 2.5 mg/dl Magnesium Level 2.2 mg/dl Total Bilirubin 0.3 mg/dl Direct Bilirubin < 0.1 mg/dl Aspartate Amino Transf (AST/SGOT) 24 U/L Alanine Aminotransferase (ALT/SGPT) 26 U/L Alkaline Phosphatase 46 U/L Total Protein 5.9 gm/dl Albumin 2.2 gm/dl Lipase 71 U/L Test 12/03/17 06:28 Bedside Glucose 123 mg/dl
--- NOTE | 2017-12-03 18:31 | Family Medicine Progress Note ---
Progress Note Date of Service Dec 03, 2017. Subjective Pt evaluation today including: physical exam, chart review, lab review, review of inpatient medication list Unable to obtain history due to sedation. Additional Comments: Unable to obtain ROS due to sedation Medications Current Inpatient Medications Medications (Trade) Dose Ordered Sig/Peyman Route Start Time Stop Time Status Last Admin Dose Admin Acetaminophen (Tylenol Tab) 650 mg Q4H PRN PO 11/30/17 22:15 12/30/17 22:14 Pantoprazole Sodium 40 mg/ Syringe 10 ml @ 5 mls/min DAILY@1100 IV 12/01/17 11:00 12/31/17 10:59 12/03/17 11:50 5 MLS/MIN Levofloxacin 750 mg/Prmx 150 ml @ 100 mls/hr Q24H IV 12/01/17 02:00 12/11/17 01:59 12/03/17 01:47 100 MLS/HR Simvastatin (Zocor Tab) 40 mg HS PO 12/01/17 21:00 12/31/17 20:59 12/02/17 21:11 40 MG Oseltamivir Phosphate (Tamiflu Susp) 75 mg BID PO 12/01/17 09:00 12/06/17 08:59 12/03/17 07:29 75 MG Dexmedetomidine HCl 200 mcg/ Sodium Chloride 50 ml @ 0 mls/hr Q0M PRN IV 12/02/17 13:02 12/06/17 13:01 12/02/17 22:14 7.1 MLS/HR Heparin Sodium (Porcine) (Heparin Sq 5000 Unit/0.5ml) 5,000 unit BID SQ 12/03/17 21:00 12/31/17 20:59 Methylprednisolone Sodium Succinate 40 mg/Syringe 0.64 ml @ 1.5 mls/min BID IV 12/03/17 11:00 12/31/17 10:59 12/03/17 11:50 1.5 MLS/MIN Miscellaneous Information ( Icu Electrolyte Replacement Protocol) 1 ea per protocol PRN N/A 12/03/17 08:45 12/10/17 08:44 Albuterol Sulfate (Ventolin 0.5% 2.5MG/0.5ML Neb) 2.5 mg Q4R PRN INH 12/03/17 11:15 01/02/18 11:14 Ipratropium [place] (Atrovent 0.02% 0.5MG/2.5ML Neb) 0.5 mg Q4R PRN INH 12/03/17 11:15 01/02/18 11:14 Objective Vital Signs Date Time Temp Pulse Resp B/P (MAP) Pulse Ox O2 Delivery O2 Flow Rate FiO2 12/03/17 16:17 94 28 137/81 (99) 97 Oxymask 4.0 12/03/17 16:00 Oxymask 6.0 12/03/17 15:00 97 97 40 12/03/17 14:08 99 28 137/81 (99) 96 CPAP 35 Mechanical Ventilator 12/03/17 12:02 90 28 146/80 (102) 98 CPAP 35 Mechanical Ventilator 12/03/17 12:00 35 12/03/17 12:00 CPAP 35 Mechanical Ventilator 12/03/17 10:50 35 12/03/17 10:00 99 32 138/91 (107) 95 CPAP 35 Mechanical Ventilator 12/03/17 09:55 35 12/03/17 09:15 35 12/03/17 08:00 CPAP 35 12/03/17 08:00 35 12/03/17 08:00 35 12/03/17 08:00 69 30 133/72 (92) 94 CPAP 35 Mechanical Ventilator 12/03/17 08:00 CPAP 35 Mechanical Ventilator 12/03/17 07:26 35 12/03/17 06:00 73 18 128/68 (88) 95 Mechanical Ventilator 35 12/03/17 05:15 35 12/03/17 04:00 99 Mechanical Ventilator 35 12/03/17 04:00 35 12/03/17 04:00 36.5 60 21 147/74 (98) 99 Mechanical Ventilator 35 12/03/17 02:15 35 12/03/17 02:01 63 18 147/84 (105) 99 Mechanical Ventilator 35 12/03/17 02:00 63 18 147/84 (105) 99 Mechanical Ventilator 35 12/03/17 00:01 36.5 66 21 154/76 (102) 99 Mechanical Ventilator 35 12/02/17 23:59 99 Mechanical Ventilator 35 12/02/17 23:59 35 12/02/17 23:01 35 12/02/17 22:00 81 23 141/72 (95) 98 Mechanical Ventilator 35 12/02/17 21:05 35 12/02/17 20:00 99 Mechanical Ventilator 35 12/02/17 20:00 37.1 85 23 148/76 (100) 100 Mechanical Ventilator 35 12/02/17 20:00 35 Physical Exam General Appearance: WD/WN, + pertinent finding (intubated, sedated and on trial of CPAP) Respiratory/Chest: + decreased breath sounds, + crackles Cardiovascular: regular rate, rhythm, no edema Abdomen: soft Extremities: no pedal edema Laboratory Results Last 24 Hours Test 12/02/17 23:42 12/03/17 04:32 12/03/17 06:28 12/03/17 11:53 Bedside Glucose 137 mg/dl 123 mg/dl 118 mg/dl White Blood Count 4.58 K/uL Red Blood Count 3.04 M/uL Hemoglobin 9.1 g/dL Hematocrit 28.9 % Mean Corpuscular Volume 95.1 fL Mean Corpuscular Hemoglobin 29.9 pg Mean Corpuscular Hemoglobin Concent 31.5 g/dl Platelet Count 157 K/uL Mean Platelet Volume 10.4 fL Neutrophils (%) (Auto) 88.3 % Lymphocytes (%) (Auto) 6.1 % Monocytes (%) (Auto) 5.2 % Eosinophils (%) (Auto) 0.0 % Basophils (%) (Auto) 0.2 % Neutrophils # (Auto) 4.04 K/uL Lymphocytes # (Auto) 0.28 K/uL Monocytes # (Auto) 0.24 K/uL Eosinophils # (Auto) 0.00 K/uL Basophils # (Auto) 0.01 K/uL RDW Standard Deviation 50.3 fL RDW Coefficient of Variation 14.4 % Immature Granulocyte % (Auto) 0.2 % Immature Granulocyte # (Auto) 0.01 K/uL Prothrombin Time 11.2 SECONDS Prothromb Time International Ratio 1.1 Activated Partial Thromboplast Time 45.9 SECONDS Partial Thromboplastin Ratio 1.8 Sodium Level 142 mmol/L Potassium Level 4.6 mmol/L Chloride Level 110 mmol/L Carbon Dioxide Level 28 mmol/L Anion Gap 4.0 mmol/L Blood Urea Nitrogen 31 mg/dl Creatinine 0.42 mg/dl Est Creatinine Clear Calc Drug Dose 99.1 ml/min Estimated GFR () 119.5 Estimated GFR (Non- 103.1 BUN/Creatinine Ratio 74.0 Random Glucose 149 mg/dl Calcium Level 8.2 mg/dl Phosphorus Level 2.5 mg/dl Magnesium Level 2.2 mg/dl Total Bilirubin 0.3 mg/dl Direct Bilirubin < 0.1 mg/dl Aspartate Amino Transf (AST/SGOT) 24 U/L Alanine Aminotransferase (ALT/SGPT) 26 U/L Alkaline Phosphatase 46 U/L Total Protein 5.9 gm/dl Albumin 2.2 gm/dl Lipase 71 U/L Assessment and Plan 72 year old female with a past medical history of COPD on home O2/Chronic respiratory failure, hyperlipidemia, GERD, chronic lower back pain, and depression who presents as a direct admit from [facility] for Acute respiratory failure requiring intubation and sedation due to a believed COPD exacerbation and Influenza Acute Hypoxic Hypercapnic Respiratory Failure - trial of CPAP - appreciate ICU management - secondary to influenza as well as COPD exacerbation pt was later extubated and placed on 4L via oxymask Influenza A - Tamiflu 75mg PO BID day 3/5 day COPD exacerbation - no consolidation on CXR - taper solumedrol from 40mg IV Q6H to 40mg IV BID (on prednisone 10mg PO chronically) - Continue Albuterol + Ipratropium - d/c IV fluids - Continue Levaquin. Zosyn and vancomycin discontinued - Blood culture negative - Sputum culture - pseudomonas sensitive to levaquin Normocytic Anemia - Hgb 10.1 -> 8.8 aspirin given at [facility] and patient on steroids - trend, currently stable at 9.1 - Continue pantoprazole 40mg IV HLD - Simvastatin 40mg GERD - Switched omeprazole to Protonix Depression/anxiety - Consider restarting citalopram (QTc 452ms) VTE Prophylaxis - Heparin 5,000 bid SQ Code Status - Updated to DNR Disposition - remains in ICU Resident Physician Supervision Note: I interviewed and examined the patient. Discussed with the resident physician and agree with findings and plan as documented in the note. Primary care per the ICU team. I reviewed the chart, examined the patient, and spoke with the patient's sister who is bedside this afternoon. Agree with above; if QT is a concern, would recommend transition to Lexapro ( versus Celexa), or even Zoloft. Documented By: Hector Tyler Resident Tracking Resident Involvement: Resident Care Provided Care Provided: Adult Hospital Medicine
[2017-12-03] MEDS: MoRPHine SULFATE 2 MG/ML CARP IV PRN ×2 (19:42→22:31)
[2017-12-03] MEDS: IPRATROPIUM BROMIDE NEB SOLN 0.02% 2.5 ML VIAL INH PRN (19:54)
[2017-12-03] MEDS: SIMVASTATIN 40 MG TAB PO SCH (20:23)
--- NOTE | 2017-12-03 21:27 | Critical Care Progress Note ---
Critical Care Progress Note Date of Service Dec 03, 2017. Critical Care Progress Note Pt was noted to desaturate into the mid 80% and remain there. I examined pt and found her to be extremely short of breath and using accessory muscles. Notably on physical exam was a left sided inspiratory wheeze. Pt was too short of breath to offer much information but did point to pain in her abd. Pt was given 2mg of IV Morphine and oxygenation returned to 100% on telemetry. She was appeared physically more comfortable as well. Pt initially refused a breath treatment thinking we were intending to place the tight bipap mask back on her however, consented and tolerated administration well. Rechecked pt, continues to saturate well. Is complaining of inability to sleep. Spent an additional 15 minutes of Critical Care time.
[2017-12-04] VITALS (12 sets, daily range): BP systolic 126–158; BP diastolic 77–89; PULSE 89–112; TEMP 36.7–37.5; O2SAT 95–100
[2017-12-04] MEDS: LEVOFLOXACIN / D5W 750 MG in PREMIXED IN D5W 150 ML IV SCH (02:18)
[2017-12-04] MEDS: MoRPHine SULFATE 2 MG/ML CARP IV PRN ×3 (04:51→21:40)
[2017-12-04 06:13] LABS: BASO % 0.1 %; BASO ABS # 0.01 K/uL (0-0.2); HEMATOCRIT 30.6 % (37-47); HEMOGLOBIN 9.9 g/dL (12.0-16.0); IG# 0.02 K/uL (0.00-0.02); LYMPH % 6.1 %; LYMPH ABS # 0.41 K/uL (1.2-3.4); MEAN CELL VOLUME 93.6 fL (80-100); MEAN CORPUSCULAR HEMOGLOBIN 30.3 pg (25-34); MEAN CORPUSCULAR HGB CONC 32.4 g/dl (32-36); MEAN PLATELET VOLUME 9.9 fL (7.4-10.4); MONO % 7.1 %; MONO ABS # 0.48 K/uL (0.11-0.59); NEUT % 86.4 %; NEUT ABS # 5.82 K/uL (1.4-6.5); PLATELET COUNT 194 K/uL (130-400); RED CELL DISTRIBUTION WIDTH CV 14.3 % (11.5-14.5); RED CELL DISTRIBUTION WIDTH SD 48.9 fL (36.4-46.3); WHITE BLOOD COUNT 6.74 K/uL (4.8-10.8)
[2017-12-04 06:39] LABS: ALBUMIN 2.7 gm/dl (3.4-5.0); ALT/SGPT 31 U/L (12-78); AST/SGOT 28 U/L (15-37); BLOOD UREA NITROGEN 28 mg/dl (7-18); CALCIUM 8.9 mg/dl (8.5-10.1); CARBON DIOXIDE 34 mmol/L (21-32); CREATININE 0.36 mg/dl (0.60-1.20); GLUCOSE 104 mg/dl (70-99); INR 1.1 (0.9-1.1); LIPASE 92 U/L (73-393); PTT PATIENT 25.5 SECONDS (21.0-31.0); SODIUM 141 mmol/L (136-145)
[2017-12-04 06:43] LABS: ALKALINE PHOSPHATASE 49 U/L (45-117); PHOSPHORUS 2.9 mg/dl (2.5-4.9); TOTAL PROTEIN 6.5 gm/dl (6.4-8.2)
[2017-12-04] MEDS: METHYLPREDNISOLONE IV 40 MG in SYRINGE 0 ML IV SCH ×2 (07:46→21:25)
[2017-12-04] MEDS: OSELTAMIVIR PHOSPHATE SUSP 75 MG/12.5 ML UDP PO SCH (07:46)
[2017-12-04] MEDS: HEPARIN SOD 5000 UNIT/0.5 ML CARP SQ SCH ×2 (07:48→21:00)
[2017-12-04] MEDS: DexMEDEtomidine HCL IV 200 MCG in SODIUM CHLORIDE 0.9% 50ML 48 ML IV PRN (07:55)
[2017-12-04] MEDS: CLONAZEPAM 0.5 MG TAB PO PRN ×2 (09:23→18:21)
[2017-12-04] MEDS: PANTOprazole INJ 40 MG in SYRINGE 0 ML IV SCH (10:47)
--- NOTE | 2017-12-04 11:26 | Palliative Care Consultation ---
Consultation Date of Consultation: Dec 04, 2017. Requesting Physician: Dr. Manuel Attending Physician: Dr. Milan, Dr. Tyler Reason for Consultation: Goals of care History of Present Illness This 72 year old female patient with PMH severe COPD, home oxygen use, chronic respiratory failure, HLD, GERD, back pain, and depression, presented to the hospital four days ago as a direct admit from [facility] with respiratory failure and Influenza A. Patient lives at home with her and is pretty debilitated from her COPD. She requires a lot of care from her , even with personal hygiene, because of how short of breath she is. Patient really does not have much recollection of what happened in the moments before she went to the hospital, but apparently she was struggling to breathe and her called EMS. She was on Bipap in the ED and continued to decompensate, eventually requiring intubation and transfer to [facility]. Patient is a current smoker. Sees Ilan Calderon PA-C for pulmonology. Patient was extubated and remains very short of breath, but is alert and oriented, able to make her own decisions. The ICU team discussed with patient about her condition and what her wishes are if things continue to worsen. Patient made herself a DNR/DNI. Palliative care is consulted to assist with establishing goals of care. I met with the patient this morning in room 105. Patient is awake, alert and oriented x4. She is noticeably short of breath but in no acute distress. Her O2 saturation is 100% on 4LNC, HR 90s to low 100s sinus tachycardia. I spoke with the patient at the bedside about her goals of care. Patient confirms that she is a DNR and DNI. If her respiratory status decompensates again, she would NOT want to be reintubated. She states that at that point she would just want to be comfortable and allow nature to take its course. As far as continuous churn buttermaker goals, patient is unsure, but she is willing to continue to talk about them throughout hospitalization. She states her and children are aware of her situation and are supportive. Conversation was somewhat limited due to the dyspnea but for now patient would like to continue current medical treatment. Past Medical/Surgical History Medical History: Severe COPD Chronic respiratory failure Chronic home oxygen use at 3-4LNC HLD GERD Chronic lower back pain Depression Family History None known per record Social History Smoking Status: Current Every Day Smoker History of Alcohol Use: Yes (1-2 drinks/week) Drug Use: none Marital Status: Housing Status: lives with family Occupation Status: retired Review of Systems Constitutional: + weakness (due to SOB) ENT: No trouble swallowing Respiratory: + cough, + shortness of breath, + dyspnea at rest, No wheezing ( none at this time) Cardiac: No chest pain, No edema Abdomen: No pain, No nausea, No vomiting Psychiatric: + anxiety Allergies Coded Allergies: No Known Allergies (Verified , NONE, 12/07/16) Medications Current Inpatient Medications Medications (Trade) Dose Ordered Sig/Peyman Route Start Time Stop Time Status Last Admin Dose Admin Acetaminophen (Tylenol Tab) 650 mg Q4H PRN PO 11/30/17 22:15 12/30/17 22:14 Pantoprazole Sodium 40 mg/ Syringe 10 ml @ 5 mls/min DAILY@1100 IV 12/01/17 11:00 12/31/17 10:59 12/04/17 10:47 5 MLS/MIN Levofloxacin 750 mg/Prmx 150 ml @ 100 mls/hr Q24H IV 12/01/17 02:00 12/11/17 01:59 12/04/17 02:18 100 MLS/HR Simvastatin (Zocor Tab) 40 mg HS PO 12/01/17 21:00 12/31/17 20:59 12/02/17 21:11 40 MG Oseltamivir Phosphate (Tamiflu Susp) 75 mg BID PO 12/01/17 09:00 12/06/17 08:59 12/04/17 07:46 75 MG Dexmedetomidine HCl 200 mcg/ Sodium Chloride 50 ml @ 0 mls/hr Q0M PRN IV 12/02/17 13:02 12/06/17 13:01 12/04/17 07:55 2.4 MLS/HR Heparin Sodium (Porcine) (Heparin Sq 5000 Unit/0.5ml) 5,000 unit BID SQ 12/03/17 21:00 12/31/17 20:59 12/04/17 07:48 5,000 UNIT Methylprednisolone Sodium Succinate 40 mg/Syringe 0.64 ml @ 1.5 mls/min BID IV 12/03/17 11:00 12/31/17 10:59 12/04/17 07:46 1.5 MLS/MIN Miscellaneous Information ( Icu Electrolyte Replacement Protocol) 1 ea per protocol PRN N/A 12/03/17 08:45 12/10/17 08:44 Ipratropium [place] (Atrovent 0.02% 0.5MG/2.5ML Neb) 0.5 mg Q4R PRN INH 12/03/17 11:15 01/02/18 11:14 12/03/17 19:54 0.5 MG Morphine Sulfate (MoRPHine SULFATE INJ) 2 mg Q4H PRN IV 12/03/17 19:30 12/17/17 19:29 12/04/17 04:51 2 MG Levalbuterol (Xopenex 1.25MG/ 3ML Neb) 1.25 mg Q4R PRN INH 12/04/17 08:15 01/03/18 08:14 Clonazepam (Klonopin Tab) 0.5 mg TID PRN PO 12/04/17 08:15 01/03/18 08:14 12/04/17 09:23 0.5 MG Physical Exam Date Time Temp Pulse Resp B/P (MAP) Pulse Ox O2 Delivery O2 Flow Rate FiO2 12/04/17 10:00 101 22 155/88 (110) 99 4.0 12/04/17 08:00 100 Nasal Cannula 4.0 12/04/17 08:00 37.0 92 22 152/78 (102) 100 Nasal Cannula 4.0 12/04/17 06:00 36.9 89 20 126/78 (94) 98 Nasal Cannula 4.0 12/04/17 04:00 100 Nasal Cannula 4.0 12/04/17 04:00 36.9 92 22 154/88 (110) 100 Nasal Cannula 4.0 12/04/17 02:00 36.9 91 24 148/88 (108) 100 Nasal Cannula 6.0 12/04/17 00:01 36.8 93 24 134/89 (104) 100 Nasal Cannula 6.0 12/03/17 23:59 100 Nasal Cannula 6.0 12/03/17 22:26 94 28 143/76 (98) 100 Nasal Cannula 6.0 12/03/17 20:00 94 24 100 Nasal Cannula 4.0 12/03/17 20:00 Nasal Cannula 6.0 12/03/17 20:00 91 28 152/82 (105) 100 Nasal Cannula 6.0 12/03/17 18:00 93 32 143/83 (103) 100 Nasal Cannula 4.0 12/03/17 16:17 94 28 137/81 (99) 97 Oxymask 4.0 12/03/17 16:00 Oxymask 6.0 12/03/17 15:00 97 97 40 12/03/17 14:08 99 28 137/81 (99) 96 CPAP 35 Mechanical Ventilator 12/03/17 12:02 90 28 146/80 (102) 98 CPAP 35 Mechanical Ventilator 12/03/17 12:00 35 12/03/17 12:00 CPAP 35 Mechanical Ventilator General Appearance: + mild distress (appears anxious and SOB ), + thin, + pertinent finding (chronically ill appearing) ENT: hearing grossly normal Neck: supple, no JVD Respiratory: + decreased breath sounds (bilateral bases), + accessory muscle use, + rhonchi Cardiovascular: regular rate, rhythm, no edema, + tachycardia, + normal peripheral pulses Abdomen: normal bowel sounds, non tender, soft Neurologic/Psychiatric: alert, normal mood/affect, oriented x 3 Laboratory Results Last 24 Hours Test 12/03/17 11:53 12/03/17 19:07 12/03/17 23:37 12/04/17 05:23 Bedside Glucose 118 mg/dl 106 mg/dl 102 mg/dl White Blood Count 6.74 K/uL Red Blood Count 3.27 M/uL Hemoglobin 9.9 g/dL Hematocrit 30.6 % Mean Corpuscular Volume 93.6 fL Mean Corpuscular Hemoglobin 30.3 pg Mean Corpuscular Hemoglobin Concent 32.4 g/dl Platelet Count 194 K/uL Mean Platelet Volume 9.9 fL Neutrophils (%) (Auto) 86.4 % Lymphocytes (%) (Auto) 6.1 % Monocytes (%) (Auto) 7.1 % Eosinophils (%) (Auto) 0.0 % Basophils (%) (Auto) 0.1 % Neutrophils # (Auto) 5.82 K/uL Lymphocytes # (Auto) 0.41 K/uL Monocytes # (Auto) 0.48 K/uL Eosinophils # (Auto) 0.00 K/uL Basophils # (Auto) 0.01 K/uL RDW Standard Deviation 48.9 fL RDW Coefficient of Variation 14.3 % Immature Granulocyte % (Auto) 0.3 % Immature Granulocyte # (Auto) 0.02 K/uL Prothrombin Time 11.1 SECONDS Prothromb Time International Ratio 1.1 Activated Partial Thromboplast Time 25.5 SECONDS Partial Thromboplastin Ratio 1.0 Sodium Level 141 mmol/L Potassium Level 4.0 mmol/L Chloride Level 103 mmol/L Carbon Dioxide Level 34 mmol/L Anion Gap 4.0 mmol/L Blood Urea Nitrogen 28 mg/dl Creatinine 0.36 mg/dl Est Creatinine Clear Calc Drug Dose 117.4 ml/min Estimated GFR () 125.7 Estimated GFR (Non- 108.5 BUN/Creatinine Ratio 78.0 Random Glucose 104 mg/dl Calcium Level 8.9 mg/dl Phosphorus Level 2.9 mg/dl Magnesium Level 2.1 mg/dl Total Bilirubin 0.3 mg/dl Direct Bilirubin < 0.1 mg/dl Aspartate Amino Transf (AST/SGOT) 28 U/L Alanine Aminotransferase (ALT/SGPT) 31 U/L Alkaline Phosphatase 49 U/L Total Protein 6.5 gm/dl Albumin 2.7 gm/dl Lipase 92 U/L Test 12/04/17 05:56 Bedside Glucose 102 mg/dl Assessment & Plan Palliative Performance Scale: 30 % Problem list: SOB/VIVEROS Acute on chronic respiratory failure s/p intubation and extubation Severe COPD with exacerbation, on home O2 Influenza A Goals of care Palliative care recs: discussed with patient at bedside. -Patient confirmed she is DO NOT INTUBATE/DO NOT RESUSCITATE. -In the event of respiratory decompensation or arrest, patient would not want intubation and would just want to be made comfortable at that point and allow nature to take its course. I did not specifically address whether or not she would be okay with trial of Bipap. -For now, patient is okay with continuing current medical management to see if she is able to improve. Her goal would be to get back home. She is uncertain of halfway goals as far as whether or not she'd want to return to the hospital for life-sustaining treatment vs. enroll in hospice care at home. She'd like to wait and see how she progresses. -Family is involved and aware of patient's condition/situation. is supportive and helps take care of her at home. She may need additional help at home, at least home health, upon discharge. -Can offer to do POLST prior to discharge from the hospital depending on clinical course. Thank you kindly for this consult. I will follow as needed. Total time spent 50 minutes with >50% of time spent at bedside with patient counseling and discussing goals of care.
[2017-12-04] MEDS: LEVALBUTEROL 1.25MG/3ML NEB INH PRN ×2 (11:46→18:26)
[2017-12-04] MEDS: IPRATROPIUM BROMIDE NEB SOLN 0.02% 2.5 ML VIAL INH PRN ×2 (11:46→18:26)
[2017-12-04] MEDS ORDERED: CITALOPRAM 20 MG TAB PO ONE (15:31)
[2017-12-04] MEDS: ACETAMINOPHEN 325 MG TAB PO PRN (16:34)
--- NOTE | 2017-12-04 18:46 | Family Medicine Progress Note ---
Progress Note Date of Service Dec 04, 2017. Subjective Pt evaluation today including: conversation w/ patient, physical exam, chart review, lab review, review of inpatient medication list Pain: Abdominal pain reported PO Intake: Tolerating PO intake Voiding: kat catheter in place Ms. Robledo reports difficulty with her breathing. She feels short of breath and as though she is unable to get enough air in. She denies chest pain, n/v, fever or chills. She does note abdominal pain, that is constant and dull in nature. Constitutional: No fever, No chills Respiratory: + shortness of breath Cardiovascular: No chest pain, No edema Abdomen: + pain, No nausea, No vomiting All Other Systems: Reviewed and Negative Medications Current Inpatient Medications Medications (Trade) Dose Ordered Sig/Peyman Route Start Time Stop Time Status Last Admin Dose Admin Acetaminophen (Tylenol Tab) 650 mg Q4H PRN PO 11/30/17 22:15 12/30/17 22:14 12/04/17 16:34 650 MG Levofloxacin 750 mg/Prmx 150 ml @ 100 mls/hr Q24H IV 12/01/17 02:00 12/11/17 01:59 12/04/17 02:18 100 MLS/HR Simvastatin (Zocor Tab) 40 mg HS PO 12/01/17 21:00 12/31/17 20:59 12/02/17 21:11 40 MG Heparin Sodium (Porcine) (Heparin Sq 5000 Unit/0.5ml) 5,000 unit BID SQ 12/03/17 21:00 12/31/17 20:59 12/04/17 07:48 5,000 UNIT Methylprednisolone Sodium Succinate 40 mg/Syringe 0.64 ml @ 1.5 mls/min BID IV 12/03/17 11:00 12/31/17 10:59 12/04/17 07:46 1.5 MLS/MIN Ipratropium [place] (Atrovent 0.02% 0.5MG/2.5ML Neb) 0.5 mg Q4R PRN INH 12/03/17 11:15 01/02/18 11:14 12/04/17 11:46 0.5 MG Morphine Sulfate (MoRPHine SULFATE INJ) 2 mg Q4H PRN IV 12/03/17 19:30 12/17/17 19:29 12/04/17 13:42 2 MG Levalbuterol (Xopenex 1.25MG/ 3ML Neb) 1.25 mg Q4R PRN INH 12/04/17 08:15 01/03/18 08:14 12/04/17 11:46 1.25 MG Clonazepam (Klonopin Tab) 0.5 mg TID PRN PO 12/04/17 08:15 01/03/18 08:14 12/04/17 18:21 0.5 MG Pantoprazole Sodium (Protonix Tab) 40 mg QAM PO 12/05/17 09:00 01/04/18 08:59 Oseltamivir Phosphate (Tamiflu Cap) 75 mg BID PO 12/04/17 21:00 12/05/17 23:59 Citalopram Hydrobromide (celeXA TAB) 40 mg QAM PO 12/05/17 09:00 01/04/18 08:59 Lorazepam (Ativan Tab) 0.5 mg TID PRN PO 12/04/17 15:45 01/03/18 15:44 Objective Vital Signs Date Time Temp Pulse Resp B/P (MAP) Pulse Ox O2 Delivery O2 Flow Rate FiO2 12/04/17 16:10 Nasal Cannula 4.0 12/04/17 16:00 37.5 112 24 157/77 (103) 100 Nasal Cannula 4.0 12/04/17 15:43 37.0 98 22 100 4.0 12/04/17 15:00 36.7 109 24 152/81 (104) 99 Nasal Cannula 4.0 12/04/17 12:00 98 22 158/87 (110) 100 Nasal Cannula 4.0 12/04/17 11:46 106 24 99 Nasal Cannula 4.0 12/04/17 10:00 101 22 155/88 (110) 99 4.0 12/04/17 08:00 100 Nasal Cannula 4.0 12/04/17 08:00 Nasal Cannula 35 12/04/17 08:00 37.0 92 22 152/78 (102) 100 Nasal Cannula 4.0 12/04/17 06:00 36.9 89 20 126/78 (94) 98 Nasal Cannula 4.0 12/04/17 04:00 100 Nasal Cannula 4.0 12/04/17 04:00 36.9 92 22 154/88 (110) 100 Nasal Cannula 4.0 12/04/17 02:00 36.9 91 24 148/88 (108) 100 Nasal Cannula 6.0 12/04/17 00:01 36.8 93 24 134/89 (104) 100 Nasal Cannula 6.0 12/03/17 23:59 100 Nasal Cannula 6.0 12/03/17 22:26 94 28 143/76 (98) 100 Nasal Cannula 6.0 12/03/17 20:00 94 24 100 Nasal Cannula 4.0 12/03/17 20:00 Nasal Cannula 6.0 12/03/17 20:00 91 28 152/82 (105) 100 Nasal Cannula 6.0 Physical Exam General Appearance: WD/WN, + mild distress, + thin, + pertinent finding ( tachypneic) Respiratory/Chest: + decreased breath sounds, + accessory muscle use Cardiovascular: regular rate, rhythm, no edema Abdomen: soft, + tenderness (tender throughout abdomen, worst in lower abdominal region) Laboratory Results Last 24 Hours Test 12/03/17 19:07 12/03/17 23:37 12/04/17 05:23 12/04/17 05:56 Bedside Glucose 106 mg/dl 102 mg/dl 102 mg/dl White Blood Count 6.74 K/uL Red Blood Count 3.27 M/uL Hemoglobin 9.9 g/dL Hematocrit 30.6 % Mean Corpuscular Volume 93.6 fL Mean Corpuscular Hemoglobin 30.3 pg Mean Corpuscular Hemoglobin Concent 32.4 g/dl Platelet Count 194 K/uL Mean Platelet Volume 9.9 fL Neutrophils (%) (Auto) 86.4 % Lymphocytes (%) (Auto) 6.1 % Monocytes (%) (Auto) 7.1 % Eosinophils (%) (Auto) 0.0 % Basophils (%) (Auto) 0.1 % Neutrophils # (Auto) 5.82 K/uL Lymphocytes # (Auto) 0.41 K/uL Monocytes # (Auto) 0.48 K/uL Eosinophils # (Auto) 0.00 K/uL Basophils # (Auto) 0.01 K/uL RDW Standard Deviation 48.9 fL RDW Coefficient of Variation 14.3 % Immature Granulocyte % (Auto) 0.3 % Immature Granulocyte # (Auto) 0.02 K/uL Prothrombin Time 11.1 SECONDS Prothromb Time International Ratio 1.1 Activated Partial Thromboplast Time 25.5 SECONDS Partial Thromboplastin Ratio 1.0 Sodium Level 141 mmol/L Potassium Level 4.0 mmol/L Chloride Level 103 mmol/L Carbon Dioxide Level 34 mmol/L Anion Gap 4.0 mmol/L Blood Urea Nitrogen 28 mg/dl Creatinine 0.36 mg/dl Est Creatinine Clear Calc Drug Dose 117.4 ml/min Estimated GFR () 125.7 Estimated GFR (Non- 108.5 BUN/Creatinine Ratio 78.0 Random Glucose 104 mg/dl Calcium Level 8.9 mg/dl Phosphorus Level 2.9 mg/dl Magnesium Level 2.1 mg/dl Total Bilirubin 0.3 mg/dl Direct Bilirubin < 0.1 mg/dl Aspartate Amino Transf (AST/SGOT) 28 U/L Alanine Aminotransferase (ALT/SGPT) 31 U/L Alkaline Phosphatase 49 U/L Total Protein 6.5 gm/dl Albumin 2.7 gm/dl Lipase 92 U/L Test 12/04/17 10:48 Bedside Glucose 97 mg/dl Assessment and Plan 72 year old female with a past medical history of COPD on home O2/Chronic respiratory failure, hyperlipidemia, GERD, chronic lower back pain, and depression who presents as a direct admit from [facility] for Acute respiratory failure requiring intubation and sedation due to a believed COPD exacerbation and Influenza Pt seen by palliative care (thank you for consult). Pt stated she would not want intubation in case she decompensates - she would just want to be made comfortable. She is in agreement with continuing medical management. Will discuss goals of care as she continues to improve. Acute Hypoxic Hypercapnic Respiratory Failure - secondary to influenza as well as COPD exacerbation - pt remains extubated and satting well on 4L via oxymask - pt very anxious regarding breathing - improves with 2mg morphine q4h prn. Ativan 0.5mg TID prn also for anxiety. Influenza A - Tamiflu 75mg PO BID day 4/5 day COPD exacerbation - no consolidation on CXR - taper solumedrol from 40mg IV BID to daily tomorrow (on prednisone 10mg PO chronically) - Continue Albuterol + Ipratropium - Continue Levaquin (day 4 of abx) - Blood cultures negative - Sputum culture - pseudomonas sensitive to levaquin Normocytic Anemia - Hgb 10.1 -> 8.8 aspirin given at [facility] and patient on steroids - trend, currently stable at 9.9 HLD - Simvastatin 40mg GERD - protonix 40mg daily Depression/anxiety - restarted citalopram VTE Prophylaxis - Heparin 5,000 bid SQ Code Status - DNR/DNI Disposition - transferred to med/surg Resident Physician Supervision Note: I interviewed and examined the patient. Discussed with the resident physician and agree with findings and plan as documented in the note. Any exceptions or clarifications are listed here: 72 y/o female with debilitating COPD with acute decompensation secondary to influenza A infection. Successfully weaned from the ventilator, now has opted for DNR/DNI, continued medical care without escalation of care in case of decompensation. Upon exam late this afternoon, she notes dyspnea - pursed lip breathing - but with SPO2 = 99-percent. Continue current care. Morphine PRN significant dyspnea. A box fan may also serve to palliate the sensation of breathlessness. Documented By: Hector Tyler Resident Tracking Resident Involvement: Resident Care Provided Care Provided: Adult Hospital Medicine
--- NOTE | 2017-12-04 19:44 | Critical Care Progress Note ---
Critical Care Progress Note Date of Service Dec 04, 2017. ICU Day ICU Day Number: [address] Manuel Subjective Improvement compared to yesterday, eating breakfast during my initial visit, had to move her bowels Objective General: Vital signs reviewed Neuro alert and oriented 3 Cardiovascular: S1-S2, tachycardia Pulmonary increased I to E ratio, distant lung sounds Abdomen: Soft nontender nondistended no hepato-splenomegaly Extremities, normal capillary refill, no clubbing no cyanosis no edema Assessment & Plan PLAN: Neuro: Anxiety * Restart Celexa * Initially added Klonopin, patient states she takes Ativan 0.5 mg twice daily as needed switch to Ativan Resp: End-stage COPD * Continue steroids * Patient was successfully extubated yesterday * Discussion regarding goals of care, patient does not want resuscitation or intubation * If the patient continues to backslide from a respiratory standpoint we would transition to comfort measures, this was discussed in the presence of the patient's , sister, as well as the patient * Empiric nebs every 6 hours 24 hours, change albuterol to Xopenex CV: Tachycardia improved Fluids/Renal: Maintain euvolemic ID: Tamiflu for 5 days Pansensitive Pseudomonas, Levaquin for 10 days total of effective therapy GI/Nutrition: Restart diet today Heme: Continue DVT prophylaxis Endocrine: Blood sugar management per ICU protocol CODE STATUS: DO NOT RESUSCITATE Patient able to be downgraded, does not desire escalation of care Data Medications: Current Inpatient Medications Medications (Trade) Dose Ordered Sig/Peyman Route Start Time Stop Time Status Last Admin Dose Admin Acetaminophen (Tylenol Tab) 650 mg Q4H PRN PO 11/30/17 22:15 12/30/17 22:14 12/04/17 16:34 650 MG Levofloxacin 750 mg/Prmx 150 ml @ 100 mls/hr Q24H IV 12/01/17 02:00 12/11/17 01:59 12/04/17 02:18 100 MLS/HR Simvastatin (Zocor Tab) 40 mg HS PO 12/01/17 21:00 12/31/17 20:59 12/02/17 21:11 40 MG Heparin Sodium (Porcine) (Heparin Sq 5000 Unit/0.5ml) 5,000 unit BID SQ 12/03/17 21:00 12/31/17 20:59 12/04/17 07:48 5,000 UNIT Methylprednisolone Sodium Succinate 40 mg/Syringe 0.64 ml @ 1.5 mls/min BID IV 12/03/17 11:00 12/31/17 10:59 12/04/17 07:46 1.5 MLS/MIN Ipratropium [place] (Atrovent 0.02% 0.5MG/2.5ML Neb) 0.5 mg Q4R PRN INH 12/03/17 11:15 01/02/18 11:14 12/04/17 18:26 0.5 MG Morphine Sulfate (MoRPHine SULFATE INJ) 2 mg Q4H PRN IV 12/03/17 19:30 12/17/17 19:29 12/04/17 13:42 2 MG Levalbuterol (Xopenex 1.25MG/ 3ML Neb) 1.25 mg Q4R PRN INH 12/04/17 08:15 01/03/18 08:14 12/04/17 18:26 1.25 MG Clonazepam (Klonopin Tab) 0.5 mg TID PRN PO 12/04/17 08:15 01/03/18 08:14 12/04/17 18:21 0.5 MG Pantoprazole Sodium (Protonix Tab) 40 mg QAM PO 12/05/17 09:00 01/04/18 08:59 Oseltamivir Phosphate (Tamiflu Cap) 75 mg BID PO 12/04/17 21:00 12/05/17 23:59 Citalopram Hydrobromide (celeXA TAB) 40 mg QAM PO 12/05/17 09:00 01/04/18 08:59 Lorazepam (Ativan Tab) 0.5 mg TID PRN PO 12/04/17 15:45 01/03/18 15:44 I & O: 24-Hour Column 12/05/17 08:00 Intake Total 121 ml Output Total 375 ml Balance -254 ml Vital Signs: Date Time Temp Pulse Resp B/P (MAP) Pulse Ox O2 Delivery O2 Flow Rate FiO2 12/04/17 18:26 101 22 95 Nasal Cannula 4.0 12/04/17 16:10 Nasal Cannula 4.0 12/04/17 16:00 37.5 112 24 157/77 (103) 100 Nasal Cannula 4.0 12/04/17 15:43 37.0 98 22 100 4.0 12/04/17 15:00 36.7 109 24 152/81 (104) 99 Nasal Cannula 4.0 12/04/17 12:00 98 22 158/87 (110) 100 Nasal Cannula 4.0 12/04/17 11:46 106 24 99 Nasal Cannula 4.0 12/04/17 10:00 101 22 155/88 (110) 99 4.0 12/04/17 08:00 100 Nasal Cannula 4.0 12/04/17 08:00 Nasal Cannula 35 12/04/17 08:00 37.0 92 22 152/78 (102) 100 Nasal Cannula 4.0 12/04/17 06:00 36.9 89 20 126/78 (94) 98 Nasal Cannula 4.0 12/04/17 04:00 100 Nasal Cannula 4.0 12/04/17 04:00 36.9 92 22 154/88 (110) 100 Nasal Cannula 4.0 12/04/17 02:00 36.9 91 24 148/88 (108) 100 Nasal Cannula 6.0 12/04/17 00:01 36.8 93 24 134/89 (104) 100 Nasal Cannula 6.0 12/03/17 23:59 100 Nasal Cannula 6.0 12/03/17 22:26 94 28 143/76 (98) 100 Nasal Cannula 6.0 12/03/17 20:00 94 24 100 Nasal Cannula 4.0 12/03/17 20:00 Nasal Cannula 6.0 12/03/17 20:00 91 28 152/82 (105) 100 Nasal Cannula 6.0 Laboratory Results: Last 24 Hours Test 12/03/17 23:37 12/04/17 05:23 12/04/17 05:56 12/04/17 10:48 Bedside Glucose 102 mg/dl 102 mg/dl 97 mg/dl White Blood Count 6.74 K/uL Red Blood Count 3.27 M/uL Hemoglobin 9.9 g/dL Hematocrit 30.6 % Mean Corpuscular Volume 93.6 fL Mean Corpuscular Hemoglobin 30.3 pg Mean Corpuscular Hemoglobin Concent 32.4 g/dl Platelet Count 194 K/uL Mean Platelet Volume 9.9 fL Neutrophils (%) (Auto) 86.4 % Lymphocytes (%) (Auto) 6.1 % Monocytes (%) (Auto) 7.1 % Eosinophils (%) (Auto) 0.0 % Basophils (%) (Auto) 0.1 % Neutrophils # (Auto) 5.82 K/uL Lymphocytes # (Auto) 0.41 K/uL Monocytes # (Auto) 0.48 K/uL Eosinophils # (Auto) 0.00 K/uL Basophils # (Auto) 0.01 K/uL RDW Standard Deviation 48.9 fL RDW Coefficient of Variation 14.3 % Immature Granulocyte % (Auto) 0.3 % Immature Granulocyte # (Auto) 0.02 K/uL Prothrombin Time 11.1 SECONDS Prothromb Time International Ratio 1.1 Activated Partial Thromboplast Time 25.5 SECONDS Partial Thromboplastin Ratio 1.0 Sodium Level 141 mmol/L Potassium Level 4.0 mmol/L Chloride Level 103 mmol/L Carbon Dioxide Level 34 mmol/L Anion Gap 4.0 mmol/L Blood Urea Nitrogen 28 mg/dl Creatinine 0.36 mg/dl Est Creatinine Clear Calc Drug Dose 117.4 ml/min Estimated GFR () 125.7 Estimated GFR (Non- 108.5 BUN/Creatinine Ratio 78.0 Random Glucose 104 mg/dl Calcium Level 8.9 mg/dl Phosphorus Level 2.9 mg/dl Magnesium Level 2.1 mg/dl Total Bilirubin 0.3 mg/dl Direct Bilirubin < 0.1 mg/dl Aspartate Amino Transf (AST/SGOT) 28 U/L Alanine Aminotransferase (ALT/SGPT) 31 U/L Alkaline Phosphatase 49 U/L Total Protein 6.5 gm/dl Albumin 2.7 gm/dl Lipase 92 U/L
[2017-12-04] MEDS: SIMVASTATIN 40 MG TAB PO SCH (21:26)
[2017-12-04] MEDS: OSELTAMIVIR PHOSPHATE 75 MG CAP PO SCH (21:26)
[2017-12-04] MEDS: LORAZEPAM 0.5 MG TAB PO PRN (21:39)
[2017-12-05 00:10] VITALS: BP 91/59; PULSE 110; TEMP 36.6; O2SAT 98
[2017-12-05] MEDS: LEVOFLOXACIN / D5W 750 MG in PREMIXED IN D5W 150 ML IV SCH (01:54)
[2017-12-05] MEDS: MoRPHine SULFATE 2 MG/ML CARP IV PRN ×3 (01:58→14:46)
[2017-12-05 03:29] VITALS: PULSE 103; O2SAT 100
[2017-12-05] MEDS: IPRATROPIUM BROMIDE NEB SOLN 0.02% 2.5 ML VIAL INH PRN ×3 (03:29→11:20)
[2017-12-05] MEDS: LEVALBUTEROL 1.25MG/3ML NEB INH PRN ×3 (03:29→11:20)
[2017-12-05 07:04] VITALS: BP 128/74; PULSE 86; PULSE 95; TEMP 36.8; O2SAT 100; O2SAT 97
[2017-12-05] MEDS: PANTOprazole SOD 40 MG TAB PO SCH (07:24)
[2017-12-05] MEDS: CITALOPRAM 20 MG TAB PO SCH (07:25)
[2017-12-05] MEDS: OSELTAMIVIR PHOSPHATE 75 MG CAP PO SCH ×2 (07:53→21:41)
[2017-12-05] MEDS: CLONAZEPAM 0.5 MG TAB PO PRN (07:53)
[2017-12-05] MEDS: METHYLPREDNISOLONE IV 40 MG in SYRINGE 0 ML IV SCH (07:53)
[2017-12-05 08:00] VITALS: O2SAT 97
[2017-12-05] MEDS: HEPARIN SOD 5000 UNIT/0.5 ML CARP SQ SCH ×2 (08:03→21:45)
[2017-12-05 08:22] LABS: HEMATOCRIT 31.9 % (37-47); HEMOGLOBIN 9.8 g/dL (12.0-16.0); LYMPH % 8.6 %; LYMPH ABS # 0.39 K/uL (1.2-3.4); MEAN CELL VOLUME 95.2 fL (80-100); MEAN CORPUSCULAR HEMOGLOBIN 29.3 pg (25-34); MEAN CORPUSCULAR HGB CONC 30.7 g/dl (32-36); MEAN PLATELET VOLUME 10.3 fL (7.4-10.4); MONO % 8.2 %; MONO ABS # 0.37 K/uL (0.11-0.59); NEUT % 83.2 %; NEUT ABS # 3.75 K/uL (1.4-6.5); PLATELET COUNT 192 K/uL (130-400); RED CELL DISTRIBUTION WIDTH CV 14.1 % (11.5-14.5); RED CELL DISTRIBUTION WIDTH SD 49.2 fL (36.4-46.3); WHITE BLOOD COUNT 4.51 K/uL (4.8-10.8)
[2017-12-05 08:50] LABS: CALCIUM 8.5 mg/dl (8.5-10.1); CREATININE 0.29 mg/dl (0.60-1.20); POTASSIUM 3.6 mmol/L (3.5-5.1)
[2017-12-05 11:20] VITALS: PULSE 100; O2SAT 98
--- NOTE | 2017-12-05 12:06 | Family Medicine Progress Note ---
Progress Note Date of Service Dec 05, 2017. Subjective Pt evaluation today including: conversation w/ patient, physical exam, chart review, lab review, review of inpatient medication list Pain: Improving abdominal pain PO Intake: Tolerating PO intake Voiding: kat catheter in place Ms. Robledo reports her breathing is slightly improved today, but that she remains with fatigue. She states she is extremely tired. She notes improvement in her abdominal pain and states she is passing gas and having bowel movements. She denies chest pain, fever, chills, n/v. Constitutional: No fever, No chills Respiratory: + shortness of breath, No wheezing Abdomen: + pain, No nausea, No vomiting, No diarrhea, No constipation All Other Systems: Reviewed and Negative Medications Current Inpatient Medications Medications (Trade) Dose Ordered Sig/Peyman Route Start Time Stop Time Status Last Admin Dose Admin Acetaminophen (Tylenol Tab) 650 mg Q4H PRN PO 11/30/17 22:15 12/30/17 22:14 12/04/17 16:34 650 MG Levofloxacin 750 mg/Prmx 150 ml @ 100 mls/hr Q24H IV 12/01/17 02:00 12/11/17 01:59 12/05/17 01:54 100 MLS/HR Simvastatin (Zocor Tab) 40 mg HS PO 12/01/17 21:00 12/31/17 20:59 12/04/17 21:26 40 MG Heparin Sodium (Porcine) (Heparin Sq 5000 Unit/0.5ml) 5,000 unit BID SQ 12/03/17 21:00 12/31/17 20:59 12/05/17 08:03 5,000 UNIT Ipratropium [place] (Atrovent 0.02% 0.5MG/2.5ML Neb) 0.5 mg Q4R PRN INH 12/03/17 11:15 01/02/18 11:14 12/05/17 11:20 0.5 MG Morphine Sulfate (MoRPHine SULFATE INJ) 2 mg Q4H PRN IV 12/03/17 19:30 12/17/17 19:29 12/05/17 14:46 2 MG Levalbuterol (Xopenex 1.25MG/ 3ML Neb) 1.25 mg Q4R PRN INH 12/04/17 08:15 01/03/18 08:14 12/05/17 11:20 1.25 MG Clonazepam (Klonopin Tab) 0.5 mg TID PRN PO 12/04/17 08:15 01/03/18 08:14 12/05/17 07:53 0.5 MG Pantoprazole Sodium (Protonix Tab) 40 mg QAM PO 12/05/17 09:00 01/04/18 08:59 12/05/17 07:24 40 MG Oseltamivir Phosphate (Tamiflu Cap) 75 mg BID PO 12/04/17 21:00 12/05/17 23:59 12/05/17 07:53 75 MG Citalopram Hydrobromide (celeXA TAB) 40 mg QAM PO 12/05/17 09:00 01/04/18 08:59 12/05/17 07:25 40 MG Lorazepam (Ativan Tab) 0.5 mg TID PRN PO 12/04/17 15:45 01/03/18 15:44 12/05/17 14:45 0.5 MG Methylprednisolone Sodium Succinate 40 mg/Syringe 0.64 ml @ 1.5 mls/min DAILY IV 12/06/17 09:00 12/31/17 10:59 Objective Vital Signs Date Time Temp Pulse Resp B/P (MAP) Pulse Ox O2 Delivery O2 Flow Rate FiO2 12/05/17 14:49 36.7 93 20 129/71 (90) 99 Nasal Cannula 4.0 12/05/17 11:20 100 16 98 Nasal Cannula 4.0 12/05/17 08:00 97 Nasal Cannula 4.0 12/05/17 07:04 86 16 97 Nasal Cannula 4.0 12/05/17 07:04 36.8 95 18 128/74 (92) 100 Nasal Cannula 4.0 12/05/17 03:29 103 16 100 Nasal Cannula 4.0 12/05/17 00:15 Nasal Cannula 4.0 12/05/17 00:10 36.6 110 18 91/59 (70) 98 Nasal Cannula 4.0 12/04/17 18:26 101 22 95 Nasal Cannula 4.0 Physical Exam General Appearance: WD/WN, no apparent distress Respiratory/Chest: chest non-tender, no respiratory distress, no accessory muscle use, + decreased breath sounds Cardiovascular: regular rate, rhythm, no edema, no gallop, no murmur Abdomen: soft, + tenderness (mildly tender) Extremities: no calf tenderness Laboratory Results Last 24 Hours Test 12/05/17 07:35 White Blood Count 4.51 K/uL Red Blood Count 3.35 M/uL Hemoglobin 9.8 g/dL Hematocrit 31.9 % Mean Corpuscular Volume 95.2 fL Mean Corpuscular Hemoglobin 29.3 pg Mean Corpuscular Hemoglobin Concent 30.7 g/dl Platelet Count 192 K/uL Mean Platelet Volume 10.3 fL Neutrophils (%) (Auto) 83.2 % Lymphocytes (%) (Auto) 8.6 % Monocytes (%) (Auto) 8.2 % Eosinophils (%) (Auto) 0.0 % Basophils (%) (Auto) 0.0 % Neutrophils # (Auto) 3.75 K/uL Lymphocytes # (Auto) 0.39 K/uL Monocytes # (Auto) 0.37 K/uL Eosinophils # (Auto) 0.00 K/uL Basophils # (Auto) 0.00 K/uL RDW Standard Deviation 49.2 fL RDW Coefficient of Variation 14.1 % Immature Granulocyte % (Auto) 0.0 % Immature Granulocyte # (Auto) 0.00 K/uL Sodium Level 138 mmol/L Potassium Level 3.6 mmol/L Chloride Level 98 mmol/L Carbon Dioxide Level 36 mmol/L Anion Gap 4.0 mmol/L Blood Urea Nitrogen 23 mg/dl Creatinine 0.29 mg/dl Est Creatinine Clear Calc Drug Dose 145.8 ml/min Estimated GFR () 135.0 Estimated GFR (Non- 116.5 BUN/Creatinine Ratio 80.1 Random Glucose 120 mg/dl Calcium Level 8.5 mg/dl Assessment and Plan 72 year old female with a past medical history of COPD on home O2/Chronic respiratory failure, hyperlipidemia, GERD, chronic lower back pain, and depression who presents as a direct admit from [facility] for Acute respiratory failure requiring intubation and sedation due to a believed COPD exacerbation and Influenza Pt seen by palliative care (thank you for consult). Pt stated she would not want intubation in case she decompensates - she would just want to be made comfortable. She is in agreement with continuing medical management. Will discuss goals of care as she continues to improve. Acute Hypoxic Hypercapnic Respiratory Failure - secondary to influenza as well as COPD exacerbation - pt remains extubated and satting well on 4L via nasal cannula - breathing continues to improve - pt's sense of breathlessness improves with 2mg morphine q4h prn. Ativan 0.5mg TID prn also for anxiety. Will also try box fan Influenza A - Tamiflu 75mg PO BID day 5/5 day COPD exacerbation - no consolidation on CXR - taper solumedrol from 40mg IV BID to daily today (on prednisone 10mg PO chronically) - Continue Albuterol + Ipratropium - Continue Levaquin (day 02/14 of abx) - Blood cultures negative - Sputum culture - pseudomonas sensitive to levaquin Abdominal Pain - improving - possibly secondary to GI upset from steroids and tamiflu Normocytic Anemia - Hgb 10.1 -> 8.8 aspirin given at [facility] and patient on steroids - trend, currently stable at 9.8 HLD - Simvastatin 40mg GERD - protonix 40mg daily Depression/anxiety - continue citalopram VTE Prophylaxis - Heparin 5,000 bid SQ Code Status - DNR/DNI Disposition - remains on med/surg. PT/OT evals to determine eventual d/c plans Resident Physician Supervision Note: I was present with the resident during the history and exam. I discussed the case with the resident and agree with the findings and plan as documented in the note. Any exceptions or clarifications are listed here: 72 y/o female with influenza A infection in the setting of debilitating end-stage COPD. She has transitioned to DNR/DNI but continuing current care without escalation of care in case of decompensation. She looks slightly better today in terms of her symptoms. Continue current treatment in terms of her antibiotics and antivirals and palliative efforts in terms of her dyspnea/breathlessness. Ultimate disposition will depend on how well she recovers from this infection. Documented By: Hector Tyler Resident Tracking Resident Involvement: Resident Care Provided Care Provided: Adult Hospital Medicine
[2017-12-05] MEDS: LORAZEPAM 0.5 MG TAB PO PRN (14:45)
[2017-12-05 14:49] VITALS: BP 129/71; PULSE 93; TEMP 36.7; O2SAT 99
[2017-12-05] MEDS: SIMVASTATIN 40 MG TAB PO SCH (21:41)
[2017-12-06] VITALS (7 sets, daily range): BP systolic 124–133; BP diastolic 60–77; PULSE 92–140; TEMP 36.6–37.2; O2SAT 95–100
[2017-12-06] MEDS: LEVOFLOXACIN / D5W 750 MG in PREMIXED IN D5W 150 ML IV SCH (02:07)
[2017-12-06] MEDS: LORAZEPAM 0.5 MG TAB PO PRN (05:29)
[2017-12-06] MEDS: MoRPHine SULFATE 2 MG/ML CARP IV PRN (05:29)
[2017-12-06 08:01] LABS: HEMATOCRIT 31.9 % (37-47); MEAN CELL VOLUME 96.4 fL (80-100); MEAN CORPUSCULAR HEMOGLOBIN 30.2 pg (25-34); MEAN CORPUSCULAR HGB CONC 31.3 g/dl (32-36); MEAN PLATELET VOLUME 10.3 fL (7.4-10.4); PLATELET COUNT 188 K/uL (130-400); RED CELL DISTRIBUTION WIDTH CV 13.9 % (11.5-14.5); RED CELL DISTRIBUTION WIDTH SD 48.6 fL (36.4-46.3); WHITE BLOOD COUNT 6.45 K/uL (4.8-10.8)
[2017-12-06] MEDS: PANTOprazole SOD 40 MG TAB PO SCH (08:04)
[2017-12-06] MEDS: CITALOPRAM 20 MG TAB PO SCH (08:04)
[2017-12-06] MEDS: HEPARIN SOD 5000 UNIT/0.5 ML CARP SQ SCH ×2 (08:14→21:26)
[2017-12-06 08:31] LABS: CALCIUM 8.5 mg/dl (8.5-10.1); CREATININE 0.34 mg/dl (0.60-1.20); POTASSIUM 3.6 mmol/L (3.5-5.1)
[2017-12-06] MEDS ORDERED: METHYLPREDNISOLONE IV 40 MG in SYRINGE 0 ML IV SCH (09:00)
[2017-12-06] MEDS: CLONAZEPAM 0.5 MG TAB PO PRN (10:07)
[2017-12-06] MEDS: IPRATROPIUM BROMIDE NEB SOLN 0.02% 2.5 ML VIAL INH PRN (15:05)
[2017-12-06] MEDS: LEVALBUTEROL 1.25MG/3ML NEB INH PRN (15:05)
--- NOTE | 2017-12-06 17:15 | Family Medicine Progress Note ---
Progress Note Date of Service Dec 06, 2017. Subjective Pt evaluation today including: conversation w/ patient, physical exam, chart review, lab review, review of inpatient medication list Pain: No pain reported PO Intake: Tolerating PO intake Voiding: kat catheter in place Venkat Cerna reports she feels her breathing is slightly worse today than yesterday. She notes fatigue and constant breathlessness, which she is quite anxious about. She states her abdominal pain has resolved. She denies chest pain , n/v. She reports a cough but states she is unable to expectorate sputum. Constitutional: No fever, No chills Respiratory: + cough, + shortness of breath, + dyspnea at rest, No sputum, No wheezing Cardiovascular: No chest pain, No edema Abdomen: No pain, No nausea, No vomiting All Other Systems: Reviewed and Negative Medications Current Inpatient Medications Medications (Trade) Dose Ordered Sig/Peyman Route Start Time Stop Time Status Last Admin Dose Admin Acetaminophen (Tylenol Tab) 650 mg Q4H PRN PO 11/30/17 22:15 12/30/17 22:14 12/04/17 16:34 650 MG Levofloxacin 750 mg/Prmx 150 ml @ 100 mls/hr Q24H IV 12/01/17 02:00 12/11/17 01:59 12/06/17 02:07 100 MLS/HR Simvastatin (Zocor Tab) 40 mg HS PO 12/01/17 21:00 12/31/17 20:59 12/05/17 21:41 40 MG Heparin Sodium (Porcine) (Heparin Sq 5000 Unit/0.5ml) 5,000 unit BID SQ 12/03/17 21:00 12/31/17 20:59 12/06/17 08:14 5,000 UNIT Ipratropium [place] (Atrovent 0.02% 0.5MG/2.5ML Neb) 0.5 mg Q4R PRN INH 12/03/17 11:15 01/02/18 11:14 12/06/17 15:05 0.5 MG Morphine Sulfate (MoRPHine SULFATE INJ) 2 mg Q4H PRN IV 12/03/17 19:30 12/17/17 19:29 12/06/17 05:29 2 MG Levalbuterol (Xopenex 1.25MG/ 3ML Neb) 1.25 mg Q4R PRN INH 12/04/17 08:15 01/03/18 08:14 12/06/17 15:05 1.25 MG Clonazepam (Klonopin Tab) 0.5 mg TID PRN PO 12/04/17 08:15 01/03/18 08:14 12/06/17 10:07 0.5 MG Pantoprazole Sodium (Protonix Tab) 40 mg QAM PO 12/05/17 09:00 01/04/18 08:59 12/06/17 08:04 40 MG Citalopram Hydrobromide (celeXA TAB) 40 mg QAM PO 12/05/17 09:00 01/04/18 08:59 12/06/17 08:04 40 MG Lorazepam (Ativan Tab) 0.5 mg TID PRN PO 12/04/17 15:45 01/03/18 15:44 12/06/17 05:29 0.5 MG Methylprednisolone Sodium Succinate 40 mg/Syringe 0.64 ml @ 1.5 mls/min DAILY IV 12/06/17 09:00 12/31/17 10:59 12/06/17 08:27 1.5 MLS/MIN Objective Vital Signs Date Time Temp Pulse Resp B/P (MAP) Pulse Ox O2 Delivery O2 Flow Rate FiO2 12/06/17 15:05 108 16 95 Nasal Cannula 4.0 12/06/17 14:59 37.2 103 18 125/75 (92) 98 Nasal Cannula 2.0 12/06/17 13:40 120 96 12/06/17 10:10 99 Nasal Cannula 4.0 12/06/17 10:03 36.8 140 32 124/60 (81) 98 Nasal Cannula 4.0 120 12/06/17 07:06 36.7 93 20 125/77 (93) 99 Nasal Cannula 4.0 12/06/17 00:15 Nasal Cannula 4.0 12/06/17 00:12 36.6 92 18 133/69 (90) 100 Nasal Cannula 4.0 Physical Exam General Appearance: WD/WN, no apparent distress Respiratory/Chest: + decreased breath sounds, + accessory muscle use, + rhonchi Cardiovascular: regular rate, rhythm, no edema Abdomen: non tender, soft Laboratory Results Last 24 Hours Test 12/06/17 07:44 White Blood Count 6.45 K/uL Red Blood Count 3.31 M/uL Hemoglobin 10.0 g/dL Hematocrit 31.9 % Mean Corpuscular Volume 96.4 fL Mean Corpuscular Hemoglobin 30.2 pg Mean Corpuscular Hemoglobin Concent 31.3 g/dl RDW Standard Deviation 48.6 fL RDW Coefficient of Variation 13.9 % Platelet Count 188 K/uL Mean Platelet Volume 10.3 fL Sodium Level 138 mmol/L Potassium Level 3.6 mmol/L Chloride Level 95 mmol/L Carbon Dioxide Level 41 mmol/L Anion Gap 2.0 mmol/L Blood Urea Nitrogen 15 mg/dl Creatinine 0.34 mg/dl Est Creatinine Clear Calc Drug Dose 124.3 ml/min Estimated GFR () 128.1 Estimated GFR (Non- 110.5 BUN/Creatinine Ratio 45.7 Random Glucose 90 mg/dl Calcium Level 8.5 mg/dl Assessment and Plan 72 year old female with a past medical history of COPD on home O2/Chronic respiratory failure, hyperlipidemia, GERD, chronic lower back pain, and depression who presents as a direct admit from [facility] for Acute respiratory failure requiring intubation and sedation due to a believed COPD exacerbation and Influenza Pt seen by palliative care (thank you for consult). Pt stated she would not want intubation in case she decompensates - she would just want to be made comfortable. She is in agreement with continuing medical management. Will discuss goals of care as she continues to improve. Acute Hypoxic Hypercapnic Respiratory Failure - secondary to influenza as well as COPD exacerbation - pt satting well on 4L via nasal cannula (is normally on 4L at home) - pt does not feel she is improving - saw PT and OT and was unable to do more than sit at the end of the bed without becoming tachycardic, tachypneic and extremely anxious regarding breathing - OT feels pt would benefit from inpatient rehab and PT feels she will either need much more care at home or inpatient facility - will have to revisit goals of care and discuss discharge planning as the pt continues to recover from her infection - pt's sense of breathlessness improves with 2mg morphine q4h prn. Ativan 0.5mg TID prn also for anxiety. - flutter valve to help with expectoration Influenza A - course of tamiflu completed COPD exacerbation - no consolidation on CXR - taper solumedrol from 40mg IV daily today to 40mg of oral prednisone (on prednisone 10mg PO chronically) - Continue Albuterol + Ipratropium - Continue Levaquin (day 03/17 of abx) - can switch to PO levaquin - Blood cultures negative - Sputum culture - pseudomonas sensitive to levaquin Abdominal Pain - resolved - possibly secondary to GI upset from steroids and tamiflu Normocytic Anemia - Hgb 10.1 -> 8.8 aspirin given at [facility] and patient on steroids - trend, currently stable at 10 HLD - Simvastatin 40mg GERD - protonix 40mg daily Depression/anxiety - continue citalopram VTE Prophylaxis - Heparin 5,000 bid SQ Code Status - DNR/DNI Disposition - remains on med/surg pending clinical improvement Resident Physician Supervision Note: I was present with the resident physician during the history and exam. I discussed the case with the resident and agree with the findings and plan as documented in the note. Any exceptions or clarifications are listed here: The patient's baseline is that of a bed to chair existence; she and her report that she has significant dyspnea with minimal exertion. With her end- stage lung disease, she would qualify for hospice by Medicare criteria. I think she would be best served by home hospice either at home or in a nursing facility. Appreciate input of palliative care services. Documented By: Hector Tyler Resident Tracking Resident Involvement: Resident Care Provided Care Provided: Adult Hospital Medicine
[2017-12-06] MEDS: SIMVASTATIN 40 MG TAB PO SCH (21:21)
[2017-12-07] VITALS (13 sets, daily range): BP systolic 126–146; BP diastolic 68–79; PULSE 76–106; TEMP 36.5–37.8; O2SAT 95–100
[2017-12-07] MEDS: LORAZEPAM 0.5 MG TAB PO PRN ×3 (00:24→16:34)
[2017-12-07] MEDS: IPRATROPIUM BROMIDE NEB SOLN 0.02% 2.5 ML VIAL INH PRN (07:27)
[2017-12-07] MEDS: LEVALBUTEROL 1.25MG/3ML NEB INH PRN (07:27)
[2017-12-07] MEDS: CITALOPRAM 20 MG TAB PO SCH (07:47)
[2017-12-07] MEDS: PANTOprazole SOD 40 MG TAB PO SCH (08:14)
[2017-12-07 09:03] LABS: CALCIUM 9.2 mg/dl (8.5-10.1); CREATININE 0.41 mg/dl (0.60-1.20); POTASSIUM 3.5 mmol/L (3.5-5.1)
[2017-12-07] MEDS: HEPARIN SOD 5000 UNIT/0.5 ML CARP SQ SCH ×2 (09:14→21:22)
[2017-12-07] MEDS ORDERED: DILTIAZEM BOLUS / DRIP IV STA (09:50)
[2017-12-07] MEDS ORDERED: DILTIAZEM HCL 5 MG/ML 5 ML VIAL BOLUS/OMNI IV ONE (10:15)
--- NOTE | 2017-12-07 11:02 | DIAGNOSTIC IMAGING REPORT ---
CHEST ONE VIEW PORTABLE CLINICAL HISTORY: worsening SOB dyspnea COMPARISON STUDY: 12/02/2017 FINDINGS: Interval extubation. Stable findings of emphysematous change. Bibasilar interstitial and/or atelectatic changes considered stable. Slight chronic blunting of the lateral costophrenic angles. IMPRESSION: Interval extubation. Emphysematous change. Chronic basilar fibrosis. No change from the prior study other than extubation. The above report was generated using voice recognition software. It may contain grammatical, syntax or spelling errors. Electronically signed by: Arthur Espitia M.D. 12/07/2017 11:01 AM Dictated Date/Time: 12/07/2017 11:00 AM
[2017-12-07] MEDS: DILTIAZEM HCL INJ 125 MG in DEXTROSE 5% 100ML IV PRN (11:06)
[2017-12-07] MEDS: MoRPHine SULFATE 2 MG/ML CARP IV PRN ×2 (11:36→22:27)
[2017-12-07] MEDS: LEVOFLOXACIN 750 MG TAB PO SCH (11:37)
[2017-12-07] MEDS ORDERED: NURSING VERBAL MED ORDER ONE (16:15)
[2017-12-07] MEDS ORDERED: SODIUM CHLORIDE 0.65% NA SOLN 45 ML (OCEAN) PRN (16:30)
--- NOTE | 2017-12-07 16:31 | Family Medicine Progress Note ---
Progress Note Date of Service Dec 07, 2017. Subjective Pt evaluation today including: conversation w/ patient, physical exam, chart review, lab review, review of inpatient medication list Pain: No pain reported PO Intake: Tolerating PO intake Voiding: kat catheter in place Ms. Robledo reports she feels more short of breath today than yesterday. She notes she also feels her bladder is full, and feels as though she needs to urinate. She remains with her cough, but denies chest pain, fever or chills. Constitutional: No fever, No chills Respiratory: + cough Cardiovascular: No chest pain Abdomen: No nausea, No vomiting All Other Systems: Reviewed and Negative Medications Current Inpatient Medications Medications (Trade) Dose Ordered Sig/Peyman Route Start Time Stop Time Status Last Admin Dose Admin Acetaminophen (Tylenol Tab) 650 mg Q4H PRN PO 11/30/17 22:15 12/30/17 22:14 12/04/17 16:34 650 MG Simvastatin (Zocor Tab) 40 mg HS PO 12/01/17 21:00 12/31/17 20:59 12/06/17 21:21 40 MG Heparin Sodium (Porcine) (Heparin Sq 5000 Unit/0.5ml) 5,000 unit BID SQ 12/03/17 21:00 12/31/17 20:59 12/07/17 09:14 5,000 UNIT Ipratropium [place] (Atrovent 0.02% 0.5MG/2.5ML Neb) 0.5 mg Q4R PRN INH 12/03/17 11:15 01/02/18 11:14 12/07/17 07:27 0.5 MG Morphine Sulfate (MoRPHine SULFATE INJ) 2 mg Q4H PRN IV 12/03/17 19:30 12/17/17 19:29 12/07/17 11:36 2 MG Levalbuterol (Xopenex 1.25MG/ 3ML Neb) 1.25 mg Q4R PRN INH 12/04/17 08:15 01/03/18 08:14 12/07/17 07:27 1.25 MG Clonazepam (Klonopin Tab) 0.5 mg TID PRN PO 12/04/17 08:15 01/03/18 08:14 12/06/17 10:07 0.5 MG Pantoprazole Sodium (Protonix Tab) 40 mg QAM PO 12/05/17 09:00 01/04/18 08:59 12/07/17 08:14 40 MG Citalopram Hydrobromide (celeXA TAB) 40 mg QAM PO 12/05/17 09:00 01/04/18 08:59 12/07/17 07:47 40 MG Lorazepam (Ativan Tab) 0.5 mg TID PRN PO 12/04/17 15:45 01/03/18 15:44 12/07/17 16:34 0.5 MG Levofloxacin (Levaquin Tab) 750 mg DAILY@11 PO 12/07/17 11:00 12/09/17 11:01 12/07/17 11:37 750 MG Prednisone (PredniSONE TAB) 40 mg DAILY PO 12/07/17 09:00 01/06/18 08:59 12/07/17 07:46 40 MG Diltiazem HCl 125 mg/Dextrose 125 ml @ 0 mls/hr Q0M PRN IV 12/07/17 10:15 01/06/18 10:14 12/07/17 11:06 10 MLS/HR Sodium Chloride ([place] Nasal [place]) 1 sprays PRN PRN NA 12/07/17 16:30 01/06/18 16:29 12/07/17 16:34 1 SPRAYS Objective Vital Signs Date Time Temp Pulse Resp B/P (MAP) Pulse Ox O2 Delivery O2 Flow Rate FiO2 12/07/17 16:00 96 Nasal Cannula 4.0 12/07/17 12:00 96 Nasal Cannula 4.0 12/07/17 11:23 36.7 106 18 145/71 (95) 97 Nasal Cannula 4.0 12/07/17 11:00 36.7 99 16 97 4.0 12/07/17 08:00 95 Nasal Cannula 4.0 12/07/17 07:28 99 16 97 Nasal Cannula 4.0 12/07/17 07:18 36.7 97 20 134/73 (93) 97 Nasal Cannula 4.0 12/07/17 01:00 36.9 87 19 146/68 (94) 96 Nasal Cannula 12/07/17 00:00 95 Nasal Cannula 2.0 12/06/17 17:41 Nasal Cannula 2.0 Physical Exam General Appearance: WD/WN, no apparent distress Respiratory/Chest: lungs clear, + decreased breath sounds, + accessory muscle use Cardiovascular: no edema, + irregularly irregular Abdomen: non tender, soft Extremities: no pedal edema, no calf tenderness Laboratory Results Last 24 Hours Test 12/07/17 08:10 12/07/17 10:03 Sodium Level 139 mmol/L Potassium Level 3.5 mmol/L Chloride Level 94 mmol/L Carbon Dioxide Level 42 mmol/L Anion Gap 5.0 mmol/L Blood Urea Nitrogen 11 mg/dl Creatinine 0.41 mg/dl Est Creatinine Clear Calc Drug Dose 103.1 ml/min Estimated GFR () 120.5 Estimated GFR (Non- 103.9 BUN/Creatinine Ratio 26.3 Random Glucose 107 mg/dl Calcium Level 9.2 mg/dl Chemistry Specimen Hemolysis Troponin I 0.121 ng/ml Thyroid Stimulating Hormone (TSH) 0.535 uIu/ml Assessment and Plan 72 year old female with a past medical history of COPD on home O2/Chronic respiratory failure, hyperlipidemia, GERD, chronic lower back pain, and depression who presents as a direct admit from [facility] for Acute respiratory failure requiring intubation and sedation due to a believed COPD exacerbation and Influenza Pt seen by palliative care (thank you for consult). Pt stated she would not want intubation in case she decompensates - she would just want to be made comfortable. She is in agreement with continuing medical management. Will discuss goals of care as she continues to improve. Atrial Fibrillation - - 12/07 - pt became acutely SOB, tachycardic and anxious this AM. EKG revealed irregularly irregular rhythm consistent with atrial fibrillation - troponin elevated at 0.121 - likely secondary to supply/demand mismatch given tachycardia - pt placed on dilt drip - converted to sinus rhythm this afternoon but remains tachycardic. Continue dilt drip overnight and reassess in AM - TSH wnl, cxr wnl Acute Hypoxic Hypercapnic Respiratory Failure - secondary to influenza as well as COPD exacerbation - pt on 4L via nasal cannula (is normally on 4L at home) - pt does not feel she is improving - saw PT and OT and was unable to do more than sit at the end of the bed without becoming tachycardic, tachypneic and extremely anxious regarding breathing - OT feels pt would benefit from inpatient rehab and PT feels she will either need much more care at home or inpatient facility - reassess baseline level of functioning tomorrow after tachycardia controlled w /dilt - pt's sense of breathlessness improves with 2mg morphine q4h prn. Ativan 0.5mg TID prn also for anxiety. - flutter valve to help with expectoration Influenza A - course of tamiflu completed COPD exacerbation - no consolidation on CXR - continue 40mg of oral prednisone (on prednisone 10mg PO chronically) - Continue Albuterol + Ipratropium - continue PO Levaquin (day 04/16 of abx) - Blood cultures negative - Sputum culture - pseudomonas sensitive to levaquin Abdominal Pain - pt reported suprapubic pain and fullness again today - kat was straightened out, bladder was drained fully & pt reported improvement in symptoms - will continue to monitor Normocytic Anemia - Hgb 10.1 -> 8.8 aspirin given at [facility] and patient on steroids - trend, currently stable at 10 HLD - Simvastatin 40mg GERD - protonix 40mg daily Depression/anxiety - continue citalopram VTE Prophylaxis - Heparin 5,000 bid SQ Code Status - DNR/DNI Disposition - remains on med/surg pending clinical improvement Resident Tracking Resident Involvement: Resident Care Provided Care Provided: Adult Hospital Medicine History Resident Physician Supervision Note: I was present with Dr. Milan during the history and exam. I discussed the case with the resident and agree with the findings and plan as documented in the note. Any exceptions or clarifications are listed here. Pt reports worsened shortness of breath and palpitations in the setting of new onset AF on monitor which started this AM compared to previous. General Appearance: mild distress, thin Respiratory: chest non-tender, respiratory distress Cardiovascular: tachycardia, irregularly irregular Assessment/Plan 72 y/o female h/o COPD on home O2, HLD, depression p/w AHRF 2/2 COPD exacerbation and influenza New onset AF - dilt drip with rate control and cardioversion to sinus - transition to PO tomorrow. Monitoring troponins AHRF in the setting of COPD and influenza - steroid taper, continue baseline O2 , palliative c/s for hospice, complete 10 day course of levofloxacin and taper pred to 10mg (baseline) Abdominal pain w/ urinary retention - monitor cath (kinking) Anemia - monitor HLD - simvastatin 40mg VTE PPX - Heparin DNR/DNI
[2017-12-07 20:30] LABS: CALCIUM 8.5 mg/dl (8.5-10.1); CREATININE 0.38 mg/dl (0.60-1.20); POTASSIUM 3.3 mmol/L (3.5-5.1)
[2017-12-07] MEDS: SIMVASTATIN 40 MG TAB PO SCH (21:19)
[2017-12-07] MEDS ORDERED: MAGNESIUM SULFATE 1GM / D5W 1 GM in PREMIXED IN D5W 100 ML IV STA (21:39)
[2017-12-07] MEDS ORDERED: POTASSIUM CHLORIDE 20 MEQ TABCR PO STA (21:42)
[2017-12-08] VITALS (16 sets, daily range): BP systolic 111–151; BP diastolic 63–78; PULSE 73–144; TEMP 36.6–37.4; O2SAT 94–100
[2017-12-08] MEDS: CLONAZEPAM 0.5 MG TAB PO PRN (01:31)
[2017-12-08] MEDS: LEVALBUTEROL 1.25MG/3ML NEB INH PRN (02:04)
[2017-12-08] MEDS: IPRATROPIUM BROMIDE NEB SOLN 0.02% 2.5 ML VIAL INH PRN (02:04)
[2017-12-08] MEDS ORDERED: DILTIAZEM BOLUS / DRIP IV STA (06:03)
--- NOTE | 2017-12-08 06:06 | Progress Note ---
Progress Note Date of Service Dec 08, 2017. Progress Note contacted regarding a fibb with rvr return this am restarted diltiazem drip as patient symp with palpitations at 10 mg bolus and 2 mg q 15 minutes as was d/c per HR recommendations Ekg repeat and labs pending
[2017-12-08] MEDS ORDERED: DILTIAZEM HCL 5 MG/ML 5 ML VIAL ONE (06:07)
[2017-12-08] MEDS: LORAZEPAM 0.5 MG TAB PO PRN (06:40)
[2017-12-08] MEDS: DILTIAZEM HCL INJ 125 MG in DEXTROSE 5% 100ML IV PRN ×2 (07:34→21:39)
[2017-12-08] MEDS: CITALOPRAM 20 MG TAB PO SCH (07:42)
[2017-12-08] MEDS: PANTOprazole SOD 40 MG TAB PO SCH (07:42)
[2017-12-08] MEDS: HEPARIN SOD 5000 UNIT/0.5 ML CARP SQ SCH (07:50)
[2017-12-08 08:03] LABS: EOS % 0.1 %; EOS ABS # 0.01 K/uL (0-0.5); HEMATOCRIT 34.9 % (37-47); HEMOGLOBIN 11.4 g/dL (12.0-16.0); IG# 0.02 K/uL (0.00-0.02); LYMPH % 11.2 %; MEAN CELL VOLUME 94.3 fL (80-100); MEAN CORPUSCULAR HEMOGLOBIN 30.8 pg (25-34); MEAN CORPUSCULAR HGB CONC 32.7 g/dl (32-36); MEAN PLATELET VOLUME 10.5 fL (7.4-10.4); MONO % 10.6 %; MONO ABS # 0.85 K/uL (0.11-0.59); NEUT % 77.9 %; NEUT ABS # 6.25 K/uL (1.4-6.5); PLATELET COUNT 284 K/uL (130-400); RED CELL DISTRIBUTION WIDTH CV 14.1 % (11.5-14.5); RED CELL DISTRIBUTION WIDTH SD 48.8 fL (36.4-46.3); WHITE BLOOD COUNT 8.03 K/uL (4.8-10.8)
[2017-12-08 08:22] LABS: CREATININE 0.39 mg/dl (0.60-1.20); POTASSIUM 3.4 mmol/L (3.5-5.1)
--- NOTE | 2017-12-08 09:28 | Family Medicine Progress Note ---
Progress Note Date of Service Dec 08, 2017. Subjective Pt evaluation today including: conversation w/ patient, physical exam, chart review, lab review, review of inpatient medication list Pain: No pain reported PO Intake: Tolerating PO intake Voiding: kat catheter in place Ms. Robledo was fatigued this morning, and struggled to answer most questions given her SOB. She notes her breathing is about the same as yesterday. Respiratory: + cough (difficulty expectorating sputum), + shortness of breath Medications Current Inpatient Medications Medications (Trade) Dose Ordered Sig/Peyman Route Start Time Stop Time Status Last Admin Dose Admin Acetaminophen (Tylenol Tab) 650 mg Q4H PRN PO 11/30/17 22:15 12/30/17 22:14 12/04/17 16:34 650 MG Simvastatin (Zocor Tab) 40 mg HS PO 12/01/17 21:00 12/31/17 20:59 12/07/17 21:19 40 MG Heparin Sodium (Porcine) (Heparin Sq 5000 Unit/0.5ml) 5,000 unit BID SQ 12/03/17 21:00 12/31/17 20:59 12/08/17 07:50 5,000 UNIT Ipratropium [place] (Atrovent 0.02% 0.5MG/2.5ML Neb) 0.5 mg Q4R PRN INH 12/03/17 11:15 01/02/18 11:14 12/08/17 02:04 0.5 MG Morphine Sulfate (MoRPHine SULFATE INJ) 2 mg Q4H PRN IV 12/03/17 19:30 12/17/17 19:29 12/08/17 10:43 2 MG Levalbuterol (Xopenex 1.25MG/ 3ML Neb) 1.25 mg Q4R PRN INH 12/04/17 08:15 01/03/18 08:14 12/08/17 02:04 1.25 MG Clonazepam (Klonopin Tab) 0.5 mg TID PRN PO 12/04/17 08:15 01/03/18 08:14 12/08/17 01:31 0.5 MG Pantoprazole Sodium (Protonix Tab) 40 mg QAM PO 12/05/17 09:00 01/04/18 08:59 12/08/17 07:42 40 MG Citalopram Hydrobromide (celeXA TAB) 40 mg QAM PO 12/05/17 09:00 01/04/18 08:59 12/08/17 07:42 40 MG Lorazepam (Ativan Tab) 0.5 mg TID PRN PO 12/04/17 15:45 01/03/18 15:44 12/08/17 06:40 0.5 MG Levofloxacin (Levaquin Tab) 750 mg DAILY@11 PO 12/07/17 11:00 12/09/17 11:01 12/08/17 10:42 750 MG Prednisone (PredniSONE TAB) 40 mg DAILY PO 12/07/17 09:00 01/06/18 08:59 12/08/17 07:43 40 MG Diltiazem HCl 125 mg/Dextrose 125 ml @ 0 mls/hr Q0M PRN IV 12/07/17 10:15 01/06/18 10:14 12/08/17 07:34 2 MLS/HR Sodium Chloride ([place] Nasal [place]) 1 sprays PRN PRN NA 12/07/17 16:30 01/06/18 16:29 12/07/17 16:34 1 SPRAYS Objective Vital Signs Date Time Temp Pulse Resp B/P (MAP) Pulse Ox O2 Delivery O2 Flow Rate FiO2 12/08/17 19:02 36.6 82 22 122/72 (89) 96 Nasal Cannula 5.0 Humidified Oxygen 12/08/17 16:00 96 Nasal Cannula 5.0 12/08/17 15:51 36.7 110 20 116/69 (85) 94 Nasal Cannula 5.0 Humidified Oxygen 12/08/17 12:20 37.0 118 20 128/68 (88) 96 Nasal Cannula 5.0 12/08/17 12:00 94 Nasal Cannula 5.0 12/08/17 08:00 95 Nasal Cannula 5.0 12/08/17 07:41 89 136/73 (94) 12/08/17 07:34 144 144/78 (100) 12/08/17 07:01 37.0 117 20 141/78 (99) 95 Nasal Cannula 5.0 12/08/17 06:06 91 24 151/75 (100) 96 Nasal Cannula 5.0 96 12/08/17 04:00 100 Nasal Cannula 5.0 12/08/17 03:51 37.4 96 18 113/68 (83) 98 Nasal Cannula 4.0 12/08/17 02:04 92 18 100 Nasal Cannula 5.0 12/08/17 00:00 100 Nasal Cannula 4.0 12/07/17 23:44 37.8 78 18 144/72 (96) 96 Nasal Cannula 4.0 12/07/17 20:00 100 Nasal Cannula 4.0 Physical Exam General Appearance: WD/WN Respiratory/Chest: + decreased breath sounds, + accessory muscle use Cardiovascular: + irregularly irregular Abdomen: non tender, soft Laboratory Results Last 24 Hours Test 12/08/17 01:41 12/08/17 06:35 Troponin I 0.083 ng/ml White Blood Count 8.03 K/uL Red Blood Count 3.70 M/uL Hemoglobin 11.4 g/dL Hematocrit 34.9 % Mean Corpuscular Volume 94.3 fL Mean Corpuscular Hemoglobin 30.8 pg Mean Corpuscular Hemoglobin Concent 32.7 g/dl Platelet Count 284 K/uL Mean Platelet Volume 10.5 fL Neutrophils (%) (Auto) 77.9 % Lymphocytes (%) (Auto) 11.2 % Monocytes (%) (Auto) 10.6 % Eosinophils (%) (Auto) 0.1 % Basophils (%) (Auto) 0.0 % Neutrophils # (Auto) 6.25 K/uL Lymphocytes # (Auto) 0.90 K/uL Monocytes # (Auto) 0.85 K/uL Eosinophils # (Auto) 0.01 K/uL Basophils # (Auto) 0.00 K/uL RDW Standard Deviation 48.8 fL RDW Coefficient of Variation 14.1 % Immature Granulocyte % (Auto) 0.2 % Immature Granulocyte # (Auto) 0.02 K/uL Sodium Level 136 mmol/L Potassium Level 3.4 mmol/L Chloride Level 93 mmol/L Carbon Dioxide Level 38 mmol/L Anion Gap 5.0 mmol/L Blood Urea Nitrogen 9 mg/dl Creatinine 0.39 mg/dl Est Creatinine Clear Calc Drug Dose 93.4 ml/min Estimated GFR () 122.5 Estimated GFR (Non- 105.7 BUN/Creatinine Ratio 21.9 Random Glucose 105 mg/dl Calcium Level 9.0 mg/dl Assessment and Plan 72 year old female with a past medical history of COPD on home O2/Chronic respiratory failure, hyperlipidemia, GERD, chronic lower back pain, and depression who presents as a direct admit from [facility] for Acute respiratory failure requiring intubation and sedation due to a believed COPD exacerbation and Influenza Pt seen by palliative care (thank you for consult). Pt stated she would not want intubation in case she decompensates - she would just want to be made comfortable. She is in agreement with continuing medical management. Will discuss goals of care as she continues to improve. Atrial Fibrillation - - 12/07 - pt became acutely SOB, tachycardic and anxious this AM. EKG revealed irregularly irregular rhythm consistent with atrial fibrillation - troponin elevated at 0.121 - likely secondary to supply/demand mismatch given tachycardia - pt placed on dilt drip - HR fluctuated from 90s-130s w/a dilt rate of 10 -> transition from dilt drip to PO diltiazem -> start with 60mg qid and titrate up as needed. Stop dilt drip 1 hour after PO given and titrate down by 2.5mg/hr till 0 -> reassess in AM - heparin drip started, no bolus - TSH wnl, cxr wnl Acute Hypoxic Hypercapnic Respiratory Failure - secondary to influenza as well as COPD exacerbation - pt on 4-5L via nasal cannula (is normally on 4L at home) - pt does not feel she is improving - saw PT and OT and was unable to do more than sit at the end of the bed without becoming tachycardic, tachypneic and extremely anxious regarding breathing - OT feels pt would benefit from inpatient rehab and PT feels she will either need much more care at home or inpatient facility - reassess baseline level of functioning tomorrow after tachycardia controlled w /dilt - pt's sense of breathlessness improves with 2mg morphine q4h prn. Ativan 0.5mg TID prn also for anxiety. - flutter valve to help with expectoration Influenza A - course of tamiflu completed COPD exacerbation - no consolidation on CXR - continue 40mg of oral prednisone (on prednisone 10mg PO chronically) - Continue Albuterol + Ipratropium - continue PO Levaquin (day 8 of abx) - Blood cultures negative - Sputum culture - pseudomonas sensitive to levaquin Normocytic Anemia - Hgb 10.1 -> 8.8 aspirin given at [facility] and patient on steroids - trend, improved to 11.4 HLD - Simvastatin 40mg GERD - protonix 40mg daily Depression/anxiety - continue citalopram VTE Prophylaxis - Heparin drip Code Status - DNR/DNI Disposition - remains on med/surg pending clinical improvement Assessment/Plan Resident Physician Supervision Note: I was present with Dr. Milan during the history and exam. I discussed the case with the resident and agree with the findings and plan as documented in the note. Any exceptions or clarifications are listed here. Pt remains with persistent SOB which has improved only marginally from yesterday. Remains in AF w/ rate of 90-130s with dilt IV, so transition to PO and add digoxin 0.25mg x 1 tonight and monitor. Continue O2 at 5L (baseline 4L) and re-assess. Pt is hesitant to discuss course of SOB at this point. Resident Tracking Resident Involvement: Resident Care Provided Care Provided: Adult Hospital Medicine
[2017-12-08] MEDS: LEVOFLOXACIN 750 MG TAB PO SCH (10:42)
[2017-12-08] MEDS: MoRPHine SULFATE 2 MG/ML CARP IV PRN (10:43)
[2017-12-08] MEDS ORDERED: HEPARIN IV LOW DOSE NO BOLUS SCH (19:53)
[2017-12-08 20:48] LABS: PTT PATIENT 24.8 SECONDS (21.0-31.0)
[2017-12-08] MEDS: SIMVASTATIN 40 MG TAB PO SCH (21:33)
[2017-12-08] MEDS: DILTIAZEM HCL 60 MG TAB PO SCH (21:33)
[2017-12-08] MEDS: HEPARIN 25,000 UNIT/500ML D5W 500 ML IV PRN (21:41)
[2017-12-09] VITALS (11 sets, daily range): BP systolic 96–138; BP diastolic 59–79; PULSE 66–109; TEMP 36.6–37.3; O2SAT 92–98
[2017-12-09] MEDS ORDERED: NURSING VERBAL MED ORDER ONE (02:00)
[2017-12-09 03:39] LABS: HEMATOCRIT 36.7 % (37-47); MEAN CORPUSCULAR HEMOGLOBIN 30.1 pg (25-34); MEAN CORPUSCULAR HGB CONC 32.7 g/dl (32-36); MEAN PLATELET VOLUME 9.8 fL (7.4-10.4); PLATELET COUNT 297 K/uL (130-400); RED CELL DISTRIBUTION WIDTH SD 47.4 fL (36.4-46.3); WHITE BLOOD COUNT 7.91 K/uL (4.8-10.8)
[2017-12-09 03:50] LABS: PTT PATIENT 35.9 SECONDS (21.0-31.0)
[2017-12-09 04:01] LABS: CALCIUM 9.2 mg/dl (8.5-10.1); CREATININE 0.49 mg/dl (0.60-1.20); POTASSIUM 3.2 mmol/L (3.5-5.1)
[2017-12-09] MEDS ORDERED: HEPARIN IV BOLUS 3,000 UNIT in SYRINGE 0 ML IV ONE (05:15)
--- NOTE | 2017-12-09 07:03 | Family Medicine Progress Note ---
Progress Note Date of Service Dec 09, 2017. Subjective Pt evaluation today including: conversation w/ patient, physical exam, chart review, lab review, review of inpatient medication list Pain: Abdominal discomfort noted PO Intake: Tolerating PO intake Voiding: kat catheter in place Ms. Robledo reports she feels about the same today. She notes some abdominal discomfort, present across her entire abdomen. She remains with a cough, and also notes some nasal congestion. She denies fever, or chest pain. ENT: + nasal symptoms Respiratory: + cough, + shortness of breath, No sputum Cardiovascular: No chest pain Abdomen: + pain All Other Systems: Reviewed and Negative Medications Current Inpatient Medications Medications (Trade) Dose Ordered Sig/Peyman Route Start Time Stop Time Status Last Admin Dose Admin Acetaminophen (Tylenol Tab) 650 mg Q4H PRN PO 11/30/17 22:15 12/30/17 22:14 12/09/17 07:39 650 MG Simvastatin (Zocor Tab) 40 mg HS PO 12/01/17 21:00 12/31/17 20:59 12/08/17 21:33 40 MG Ipratropium [place] (Atrovent 0.02% 0.5MG/2.5ML Neb) 0.5 mg Q4R PRN INH 12/03/17 11:15 01/02/18 11:14 12/08/17 02:04 0.5 MG Morphine Sulfate (MoRPHine SULFATE INJ) 2 mg Q4H PRN IV 12/03/17 19:30 12/17/17 19:29 12/08/17 10:43 2 MG Levalbuterol (Xopenex 1.25MG/ 3ML Neb) 1.25 mg Q4R PRN INH 12/04/17 08:15 01/03/18 08:14 12/08/17 02:04 1.25 MG Clonazepam (Klonopin Tab) 0.5 mg TID PRN PO 12/04/17 08:15 01/03/18 08:14 12/08/17 01:31 0.5 MG Pantoprazole Sodium (Protonix Tab) 40 mg QAM PO 12/05/17 09:00 01/04/18 08:59 12/09/17 07:40 40 MG Citalopram Hydrobromide (celeXA TAB) 40 mg QAM PO 2/28/18 09:00 01/04/18 08:59 12/09/17 07:41 40 MG Lorazepam (Ativan Tab) 0.5 mg TID PRN PO 12/04/17 15:45 01/03/18 15:44 12/09/17 07:39 0.5 MG Levofloxacin (Levaquin Tab) 750 mg DAILY@11 PO 12/07/17 11:00 12/09/17 11:01 12/08/17 10:42 750 MG Prednisone (PredniSONE TAB) 40 mg DAILY PO 12/07/17 09:00 01/06/18 08:59 12/09/17 07:40 40 MG Sodium Chloride ([place] Nasal [place]) 1 sprays PRN PRN NA 12/07/17 16:30 01/06/18 16:29 12/07/17 16:34 1 SPRAYS Heparin Sodium/ Dextrose 500 ml @ 13 mls/hr Q24H PRN IV 12/08/17 21:15 01/07/18 21:14 12/08/17 21:41 11 MLS/HR Potassium Chloride 10 meq/ Prmx 100 ml @ 100 mls/hr Q1H IV 12/09/17 08:00 12/09/17 11:59 12/09/17 09:43 100 MLS/HR Docusate Sodium (coLACE CAP) 100 mg BID PO 12/09/17 09:00 01/08/18 08:59 12/09/17 09:42 100 MG Polyethylene (Miralax Powder Packet) 17 gm DAILY PRN PO 12/09/17 08:00 01/08/18 07:59 Diltiazem HCl (Cardizem Tab) 90 mg Q6H PO 12/09/17 15:00 01/07/18 12:59 Objective Vital Signs Date Time Temp Pulse Resp B/P (MAP) Pulse Ox O2 Delivery O2 Flow Rate FiO2 12/09/17 12:04 37.0 109 22 115/69 (84) 98 12/09/17 12:00 96 Nasal Cannula 5.0 12/09/17 08:00 96 Nasal Cannula 5.0 12/09/17 07:29 37.2 86 20 120/67 (84) 97 Nasal Cannula 5.0 12/09/17 04:00 96 Nasal Cannula 5.0 12/09/17 04:00 36.6 81 22 138/71 (93) 95 Nasal Cannula 5.0 12/09/17 02:56 96 Nasal Cannula 5.0 12/08/17 23:07 37.0 73 22 111/63 (79) 94 Nasal Cannula 5.0 12/08/17 20:00 96 Nasal Cannula 5.0 12/08/17 19:02 36.6 82 22 122/72 (89) 96 Nasal Cannula 5.0 Humidified Oxygen 12/08/17 16:00 96 Nasal Cannula 5.0 12/08/17 15:51 36.7 110 20 116/69 (85) 94 Nasal Cannula 5.0 Humidified Oxygen Physical Exam General Appearance: WD/WN, no apparent distress Respiratory/Chest: lungs clear, + decreased breath sounds Cardiovascular: no edema, + irregularly irregular Abdomen: non tender, soft Extremities: no pedal edema, no calf tenderness Laboratory Results Last 24 Hours Test 12/08/17 20:17 12/09/17 03:22 12/09/17 03:23 12/09/17 12:18 Prothrombin Time 10.7 SECONDS Prothromb Time International Ratio 1.0 Activated Partial Thromboplast Time 24.8 SECONDS 35.9 SECONDS 46.5 SECONDS Partial Thromboplastin Ratio 1.0 1.4 1.8 White Blood Count 7.91 K/uL Red Blood Count 3.99 M/uL Hemoglobin 12.0 g/dL Hematocrit 36.7 % Mean Corpuscular Volume 92.0 fL Mean Corpuscular Hemoglobin 30.1 pg Mean Corpuscular Hemoglobin Concent 32.7 g/dl RDW Standard Deviation 47.4 fL RDW Coefficient of Variation 14.0 % Platelet Count 297 K/uL Mean Platelet Volume 9.8 fL Sodium Level 135 mmol/L Potassium Level 3.2 mmol/L Chloride Level 91 mmol/L Carbon Dioxide Level 39 mmol/L Anion Gap 5.0 mmol/L Blood Urea Nitrogen 13 mg/dl Creatinine 0.49 mg/dl Est Creatinine Clear Calc Drug Dose 74.3 ml/min Estimated GFR () 113.6 Estimated GFR (Non- 98.0 BUN/Creatinine Ratio 26.1 Random Glucose 120 mg/dl Calcium Level 9.2 mg/dl Assessment and Plan 72 year old female with a past medical history of COPD on home O2/Chronic respiratory failure, hyperlipidemia, GERD, chronic lower back pain, and depression who presents as a direct admit from [facility] for Acute respiratory failure requiring intubation and sedation due to a believed COPD exacerbation and Influenza Pt seen by palliative care (thank you for consult). Pt stated she would not want intubation in case she decompensates - she would just want to be made comfortable. She is in agreement with continuing medical management. Will discuss goals of care as she continues to improve. Atrial Fibrillation - - 12/07 - pt became acutely SOB, tachycardic and anxious this AM. EKG revealed irregularly irregular rhythm consistent with atrial fibrillation - troponin elevated at 0.121 - likely secondary to supply/demand mismatch given tachycardia - currently on 90mg q6h of PO diltiazem -> pt in sinus rhythm currently. Can reassess tomorrow AM and switch to extended release dose of diltiazem if her rate remains controlled. She did convert briefly to afib whilst on the 60mg q6h dose. - heparin drip started, no bolus -> pt is low fall/bleeding risk given lack of mobility. She would be a good candidate for switching to apixaban. Can check w/insurance tomorrow to see if this is a feasible option for her on d/c - TSH wnl, cxr wnl Acute Hypoxic Hypercapnic Respiratory Failure - secondary to influenza as well as COPD exacerbation - pt on 4-5L via nasal cannula (is normally on 4L at home) - pt does not feel she is improving - saw PT and OT and was unable to do more than sit at the end of the bed without becoming tachycardic, tachypneic and extremely anxious regarding breathing - OT feels pt would benefit from inpatient rehab and PT feels she will either need much more care at home or inpatient facility - reassess baseline level of functioning after tachycardia controlled w/dilt - pt's sense of breathlessness improves with 2mg morphine q4h prn. Ativan 0.5mg TID prn also for anxiety. - flutter valve to help with expectoration Influenza A - course of tamiflu completed COPD exacerbation - no consolidation on CXR - continue 40mg of oral prednisone (on prednisone 10mg PO chronically) - Continue Albuterol + Ipratropium - continue PO Levaquin (day 9/10 of abx) - Blood cultures negative - Sputum culture - pseudomonas sensitive to levaquin Normocytic Anemia - Hgb 10.1 -> 8.8 aspirin given at [facility] and patient on steroids - trend, improved to 12 HLD - Simvastatin 40mg GERD - protonix 40mg daily Depression/anxiety - continue citalopram VTE Prophylaxis - Heparin drip Code Status - DNR/DNI Disposition - remains on telemetry pending clinical improvement 12/09 -> Discussed situation with on the phone. He confirmed her DNR/ DNI status but is unsure of what her wishes would be moving forward in terms of goals of care. I told him this was likely her new baseline and that we needed to discuss whether she would want to be admitted again/treated this aggressively in the case that this type of situation were to happen again. He will think this through and discuss it with Ms. Robledo so we can work towards discharging her in the next couple of days. Resident Tracking Resident Involvement: Resident Care Provided Care Provided: Adult [facility] Medicine Assessment/Plan Resident Physician Supervision Note: I was present with Dr. Milan during the history and exam. I discussed the case with the resident and agree with the findings and plan as documented in the note. Any exceptions or clarifications are listed here. Pt sleeping in bed minimally tachypnic which worsens on waking. Reports stable/ unchanged SOB but appears to be using less accessory muscles. Cardioverted on diltiazem which can be converted to 360 PO daily tomorrow if she remains in sinus. Would transition to PO AC tomorrow based on affordability and preference. Continue O2 at 5L (baseline 4L) - she refuses to have the conversation with myself or the team regarding her respiratory status in light of chronic COPD and influenza and further management. Hospice was previously introduced, but she blocks engagement in this conversation. Agree w/ discussing w/ POA as well.
[2017-12-09] MEDS: LORAZEPAM 0.5 MG TAB PO PRN (07:39)
[2017-12-09] MEDS: ACETAMINOPHEN 325 MG TAB PO PRN (07:39)
[2017-12-09] MEDS: PANTOprazole SOD 40 MG TAB PO SCH (07:40)
[2017-12-09] MEDS: DILTIAZEM HCL 60 MG TAB PO SCH ×3 (07:40→20:51)
[2017-12-09] MEDS: CITALOPRAM 20 MG TAB PO SCH (07:41)
[2017-12-09] MEDS ORDERED: POLYETHYLENE (MIRALAX) 17 GM PACK PO PRN (08:00)
[2017-12-09] MEDS ORDERED: DILTIAZEM HCL 30 MG TAB PO ONE (08:30)
[2017-12-09] MEDS: DOCUSATE SODIUM 100 MG CAP PO SCH ×2 (09:42→20:53)
[2017-12-09] MEDS: POTASSIUM CHLR 10 MEQ / WTR 10 MEQ in PREMIXED WATER 100 ML IV SCH ×4 (09:43→15:16)
[2017-12-09] MEDS: LEVOFLOXACIN 750 MG TAB PO SCH (11:42)
[2017-12-09] MEDS ORDERED: DILTIAZEM HCL 60 MG TAB PO SCH ×2 (13:00→14:00)
[2017-12-09 14:44] LABS: PTT PATIENT 46.5 SECONDS (21.0-31.0)
[2017-12-09] MEDS ORDERED: HEPARIN IV BOLUS 2,000 UNIT in SYRINGE 0 ML IV SCH (16:00)
[2017-12-09] MEDS: HEPARIN 25,000 UNIT/500ML D5W 500 ML IV PRN (17:38)
[2017-12-09] MEDS: SIMVASTATIN 40 MG TAB PO SCH (20:52)
[2017-12-09] MEDS: MoRPHine SULFATE 2 MG/ML CARP IV PRN (20:53)
[2017-12-10] VITALS (11 sets, daily range): BP systolic 103–131; BP diastolic 54–68; PULSE 64–102; TEMP 36.6–37.1; O2SAT 90–98
[2017-12-10 00:33] LABS: PTT PATIENT 46.6 SECONDS (21.0-31.0)
[2017-12-10] MEDS ORDERED: HEPARIN IV BOLUS 2,000 UNIT in SYRINGE 0 ML IV ONE (01:15)
[2017-12-10] MEDS: DILTIAZEM HCL 60 MG TAB PO SCH ×2 (03:00→08:38)
[2017-12-10 04:45] LABS: EOS % 0.1 %; EOS ABS # 0.01 K/uL (0-0.5); HEMOGLOBIN 9.5 g/dL (12.0-16.0); IG# 0.04 K/uL (0.00-0.02); LYMPH % 11.7 %; LYMPH ABS # 0.87 K/uL (1.2-3.4); MEAN CELL VOLUME 91.5 fL (80-100); MEAN PLATELET VOLUME 9.9 fL (7.4-10.4); MONO % 12.2 %; MONO ABS # 0.91 K/uL (0.11-0.59); NEUT % 75.5 %; NEUT ABS # 5.63 K/uL (1.4-6.5); PLATELET COUNT 259 K/uL (130-400); RED CELL DISTRIBUTION WIDTH CV 14.2 % (11.5-14.5); RED CELL DISTRIBUTION WIDTH SD 47.8 fL (36.4-46.3); WHITE BLOOD COUNT 7.46 K/uL (4.8-10.8)
[2017-12-10 04:52] LABS: MEAN CORPUSCULAR HGB CONC 32.8 g/dl (32-36)
[2017-12-10 05:04] LABS: CALCIUM 8.6 mg/dl (8.5-10.1); CREATININE 0.38 mg/dl (0.60-1.20); POTASSIUM 3.3 mmol/L (3.5-5.1)
[2017-12-10 05:09] LABS: PTT PATIENT 62.5 SECONDS (21.0-31.0)
[2017-12-10] MEDS: MoRPHine SULFATE 2 MG/ML CARP IV PRN ×2 (05:59→20:47)
[2017-12-10] MEDS: LORAZEPAM 0.5 MG TAB PO PRN (06:00)
[2017-12-10 07:55] LABS: PTT PATIENT 62.3 SECONDS (21.0-31.0)
--- NOTE | 2017-12-10 08:37 | Family Medicine Progress Note ---
Progress Note Date of Service Dec 10, 2017. Subjective Pt evaluation today including: conversation w/ patient Found patient awake this morning. Says that her breathing is "about the same" and denies any acute respiratory distress overnight. No acute patient concerns. When asked, she says she has not thought much about her overall plan of care. Constitutional: No fever, No chills Respiratory: + cough, + shortness of breath Cardiovascular: No chest pain, No edema Abdomen: No pain, No nausea, No vomiting Medications Current Inpatient Medications Medications (Trade) Dose Ordered Sig/Peyman Route Start Time Stop Time Status Last Admin Dose Admin Acetaminophen (Tylenol Tab) 650 mg Q4H PRN PO 11/30/17 22:15 12/30/17 22:14 12/09/17 07:39 650 MG Simvastatin (Zocor Tab) 40 mg HS PO 12/01/17 21:00 12/31/17 20:59 12/09/17 20:52 40 MG Ipratropium [place] (Atrovent 0.02% 0.5MG/2.5ML Neb) 0.5 mg Q4R PRN INH 12/03/17 11:15 01/02/18 11:14 12/08/17 02:04 0.5 MG Morphine Sulfate (MoRPHine SULFATE INJ) 2 mg Q4H PRN IV 12/03/17 19:30 12/17/17 19:29 12/10/17 05:59 2 MG Levalbuterol (Xopenex 1.25MG/ 3ML Neb) 1.25 mg Q4R PRN INH 12/04/17 08:15 01/03/18 08:14 12/08/17 02:04 1.25 MG Clonazepam (Klonopin Tab) 0.5 mg TID PRN PO 12/04/17 08:15 01/03/18 08:14 12/08/17 01:31 0.5 MG Pantoprazole Sodium (Protonix Tab) 40 mg QAM PO 12/05/17 09:00 01/04/18 08:59 12/10/17 08:39 40 MG Citalopram Hydrobromide (celeXA TAB) 40 mg QAM PO 12/05/17 09:00 01/04/18 08:59 12/10/17 08:39 40 MG Lorazepam (Ativan Tab) 0.5 mg TID PRN PO 12/04/17 15:45 01/03/18 15:44 12/10/17 06:00 0.5 MG Prednisone (PredniSONE TAB) 40 mg DAILY PO 12/07/17 09:00 01/06/18 08:59 12/10/17 08:38 40 MG Sodium Chloride ([place] Nasal [place]) 1 sprays PRN PRN NA 12/07/17 16:30 01/06/18 16:29 12/07/17 16:34 1 SPRAYS Heparin Sodium/ Dextrose 500 ml @ 15 mls/hr Q24H PRN IV 12/08/17 21:15 01/07/18 21:14 12/09/17 17:38 14 MLS/HR Docusate Sodium (coLACE CAP) 100 mg BID PO 12/09/17 09:00 01/08/18 08:59 12/10/17 08:39 100 MG Polyethylene (Miralax Powder Packet) 17 gm DAILY PRN PO 12/09/17 08:00 01/08/18 07:59 Diltiazem HCl (Cardizem Tab) 90 mg Q6H PO 12/09/17 15:00 01/07/18 12:59 12/10/17 08:38 90 MG Objective Vital Signs Date Time Temp Pulse Resp B/P (MAP) Pulse Ox O2 Delivery O2 Flow Rate FiO2 12/10/17 07:48 36.8 74 19 119/60 (79) 96 Nasal Cannula 5.0 12/10/17 04:00 95 Nasal Cannula 5.0 12/10/17 03:26 37.1 74 22 117/64 (81) 98 Nasal Cannula 5.0 12/10/17 00:00 95 Nasal Cannula 5.0 12/09/17 23:38 36.7 66 18 96/59 (71) 92 Nasal Cannula 5.0 Humidified Oxygen 12/09/17 20:00 95 Nasal Cannula 5.0 12/09/17 19:09 36.7 88 18 105/79 (88) 96 Nasal Cannula 5.0 Humidified Oxygen 12/09/17 16:00 96 Nasal Cannula 5.0 12/09/17 15:14 37.3 83 18 102/60 (74) 96 Nasal Cannula 5.0 Humidified Oxygen 12/09/17 12:04 37.0 109 22 115/69 (84) 98 12/09/17 12:00 96 Nasal Cannula 5.0 Physical Exam Notes: General Appearance: Awake, alert & oriented, appears slightly out of breath when speaking, but in no immediate distress. CV: +S1S2 irregularly irregular. No peripheral edema. Pulm: Decreased breath sounds throughout without focal rales/rhonchi. On nasal cannula oxygen. Abdomen: +BS, soft, non-tender, non-distended. Extremities: No pedal edema or calf tenderness. Neuro: No gross neuro deficits. Lines: Right hand PIV. Bai catheter. Laboratory Results 12/10/17 04:31 Red Blood Count 3.17, Mean Corpuscular Volume 91.5, Mean Corpuscular Hemoglobin 30.0, Mean Corpuscular Hemoglobin Concent 32.8, Mean Platelet Volume 9.9, Neutrophils (%) (Auto) 75.5, Lymphocytes (%) (Auto) 11.7, Monocytes (%) (Auto) 12.2, Eosinophils (%) (Auto) 0.1, Basophils (%) (Auto) 0.0, Neutrophils # (Auto ) 5.63, Lymphocytes # (Auto) 0.87, Monocytes # (Auto) 0.91, Eosinophils # (Auto ) 0.01, Basophils # (Auto) 0.00 12/10/17 04:31 Test 12/10/17 04:31 12/10/17 06:53 White Blood Count 7.46 K/uL (4.8-10.8) Red Blood Count 3.17 M/uL (4.2-5.4) Hemoglobin 9.5 g/dL (12.0-16.0) Hematocrit 29.0 % (37-47) Mean Corpuscular Volume 91.5 fL (80-100) Mean Corpuscular Hemoglobin 30.0 pg (25-34) Mean Corpuscular Hemoglobin Concent 32.8 g/dl (32-36) Platelet Count 259 K/uL (130-400) Mean Platelet Volume 9.9 fL (7.4-10.4) Neutrophils (%) (Auto) 75.5 % Lymphocytes (%) (Auto) 11.7 % Monocytes (%) (Auto) 12.2 % Eosinophils (%) (Auto) 0.1 % Basophils (%) (Auto) 0.0 % Neutrophils # (Auto) 5.63 K/uL (1.4-6.5) Lymphocytes # (Auto) 0.87 K/uL (1.2-3.4) Monocytes # (Auto) 0.91 K/uL (0.11-0.59) Eosinophils # (Auto) 0.01 K/uL (0-0.5) Basophils # (Auto) 0.00 K/uL (0-0.2) RDW Standard Deviation 47.8 fL (36.4-46.3) RDW Coefficient of Variation 14.2 % (11.5-14.5) Immature Granulocyte % (Auto) 0.5 % Immature Granulocyte # (Auto) 0.04 K/uL (0.00-0.02) Anion Gap 4.0 mmol/L (3-11) Est Creatinine Clear Calc Drug Dose 89.4 ml/min Estimated GFR () 123.5 Estimated GFR (Non- 106.6 BUN/Creatinine Ratio 35.2 (10-20) Calcium Level 8.6 mg/dl (8.5-10.1) Activated Partial Thromboplast Time 62.3 SECONDS (21.0-31.0) Partial Thromboplastin Ratio 2.4 Assessment and Plan 72 yo female admitted on [id number] for acute respiratory failure requiring intubation and sedation due to a believed COPD exacerbation and Influenza. PMH: COPD on home O2/Chronic respiratory failure, hyperlipidemia, GERD, chronic lower back pain, and depression Acute Hypoxic Hypercapnic Respiratory Failure: Secondary to influenza as well as COPD exacerbation. Is on 4L NC at home. Some increased WOB today. Is on ativan and morphine (both prn) for related anxiety. - Changed nebs to scheduled. -- Flutter valve to help with expectoration -- Pulmonology consulted. COPD exacerbation: -- no consolidation on CXR -- continue 40mg of oral prednisone (on prednisone 10mg PO chronically) --Continue Albuterol + Ipratropium -- Finished ten day course of levaquin. -- 23Feb Blood cultures negative -- Sputum culture - pseudomonas sensitive to levaquin Influenza: Completed course of tamiflu. Atrial Fibrillation: Improved. Troponin elevation to 0.121, since trended downwards, likely due to demand ischemia from tachycardia. On extended-release diltiazem. On heparin. -- Will discuss starting apixaban with patient (prior concerns with cost - per her insurance, is $15 a month) --- TSH wnl, cxr wnl Normocytic Anemia: -- Hb currently 9.5. HLD: -- Simvastatin 40mg GERD: -- protonix 40mg daily Depression/anxiety: -- continue citalopram Code status: DNR/DNI. DVT prophy: Heparin. PT/OT: Recommends rehab. Disbo: Admitted. Palliative care consulted, with ongoing patient and family ( ) discussions. Resident Physician Supervision Note: I interviewed and examined the patient. Discussed with Dr. Marino and agree with findings and plan as documented in the note. Any exceptions or clarifications are listed here: None this pt is doing poorly with using accessory muscles of breathing, and speaking in short sentences car is regular lungs with poor air movement and expiratory wheezing is at bedside and re confirms DNR status reinforce scheduled nebulizer use, pulmonary consult, adding mucinex Documented By: Stanislav Remy Resident Tracking Resident Involvement: Resident Care Provided Care Provided: Adult Hospital Medicine (inpatient)
[2017-12-10] MEDS: DOCUSATE SODIUM 100 MG CAP PO SCH ×2 (08:39→20:49)
[2017-12-10] MEDS: PANTOprazole SOD 40 MG TAB PO SCH (08:39)
[2017-12-10] MEDS: CITALOPRAM 20 MG TAB PO SCH (08:39)
[2017-12-10] MEDS: HEPARIN 25,000 UNIT/500ML D5W 500 ML IV PRN (08:51)
[2017-12-10] MEDS ORDERED: ALBUT/IPRATROP 3MG/0.5MG NEB 3 ML VIAL INH PRN (13:00)
--- NOTE | 2017-12-10 14:54 | Palliative Care Progress Note ---
Palliative Care Progress Note Date of Service Dec 10, 2017. Subjective Pt evaluation today including: conversation w/ patient, physical exam, chart review Pain: none at this time Voiding: kat catheter in place Patient is tired today, but oriented x4 and awakens easily. Went into rapid afib at the end of last week. She remains SOB and weak. She is uncertain of her goals of care at this point. See plan below. Review of Systems Constitutional: + weakness ENT: No trouble swallowing Respiratory: + cough, + shortness of breath, + dyspnea on exertion, No sputum Cardiac: No chest pain, No edema Abdomen: No pain, No nausea, No vomiting Female : No problem reported Psychiatric: No anxiety Objective Vital Signs Date Time Temp Pulse Resp B/P (MAP) Pulse Ox O2 Delivery O2 Flow Rate FiO2 12/10/17 12:00 Nasal Cannula 5.0 12/10/17 11:30 36.8 68 20 103/54 (70) 98 Nasal Cannula 5.0 12/10/17 08:00 Nasal Cannula 5.0 12/10/17 07:48 36.8 74 19 119/60 (79) 96 Nasal Cannula 5.0 12/10/17 04:00 95 Nasal Cannula 5.0 12/10/17 03:26 37.1 74 22 117/64 (81) 98 Nasal Cannula 5.0 12/10/17 00:00 95 Nasal Cannula 5.0 12/09/17 23:38 36.7 66 18 96/59 (71) 92 Nasal Cannula 5.0 Humidified Oxygen 12/09/17 20:00 95 Nasal Cannula 5.0 12/09/17 19:09 36.7 88 18 105/79 (88) 96 Nasal Cannula 5.0 Humidified Oxygen 12/09/17 16:00 96 Nasal Cannula 5.0 12/09/17 15:14 37.3 83 18 102/60 (74) 96 Nasal Cannula 5.0 Humidified Oxygen Physical Exam General Appearance: no apparent distress, + pertinent finding (chronically ill appearing) ENT: hearing grossly normal Neck: supple, no JVD Respiratory/Chest: + rhonchi (coarse throughout), + pertinent finding (mildly short of breath at rest) Cardiovascular: regular rate, rhythm, no edema Abdomen: normal bowel sounds, non tender, soft Neurologic/Psychiatric: normal mood/affect, oriented x 3 Laboratory Results Last 24 Hours Test 12/09/17 23:30 3/5/18 04:31 12/10/17 06:53 Activated Partial Thromboplast Time 46.6 SECONDS 62.5 SECONDS 62.3 SECONDS Partial Thromboplastin Ratio 1.8 2.4 2.4 White Blood Count 7.46 K/uL Red Blood Count 3.17 M/uL Hemoglobin 9.5 g/dL Hematocrit 29.0 % Mean Corpuscular Volume 91.5 fL Mean Corpuscular Hemoglobin 30.0 pg Mean Corpuscular Hemoglobin Concent 32.8 g/dl Platelet Count 259 K/uL Mean Platelet Volume 9.9 fL Neutrophils (%) (Auto) 75.5 % Lymphocytes (%) (Auto) 11.7 % Monocytes (%) (Auto) 12.2 % Eosinophils (%) (Auto) 0.1 % Basophils (%) (Auto) 0.0 % Neutrophils # (Auto) 5.63 K/uL Lymphocytes # (Auto) 0.87 K/uL Monocytes # (Auto) 0.91 K/uL Eosinophils # (Auto) 0.01 K/uL Basophils # (Auto) 0.00 K/uL RDW Standard Deviation 47.8 fL RDW Coefficient of Variation 14.2 % Immature Granulocyte % (Auto) 0.5 % Immature Granulocyte # (Auto) 0.04 K/uL Sodium Level 136 mmol/L Potassium Level 3.3 mmol/L Chloride Level 96 mmol/L Carbon Dioxide Level 36 mmol/L Anion Gap 4.0 mmol/L Blood Urea Nitrogen 14 mg/dl Creatinine 0.38 mg/dl Est Creatinine Clear Calc Drug Dose 89.4 ml/min Estimated GFR () 123.5 Estimated GFR (Non- 106.6 BUN/Creatinine Ratio 35.2 Random Glucose 107 mg/dl Calcium Level 8.6 mg/dl Assessment and Plan Problem list: SOB/VIVEROS Acute on chronic respiratory failure s/p intubation and extubation Severe COPD with exacerbation, on home O2 Influenza A Afib with RVR- converted to NSR Goals of care Palliative care recs: -Patient is DNR. -She is feeling tired and "worn out." She is still uncertain of her goals of care at this time. -Last week I did discuss with patient and her about transitioning to comfort/hospice care, they were undecided at that time. -I will follow up with patient tomorrow at her request. Will try to reach out to as well. Total time spent 25 minutes with >50% of time spent with patient counseling/ discussing goals of care. Palliative Performance Scale: 30 % Continued [facility] stay due to: multiple IV medications needed Discharge planning: uncertain
[2017-12-10] MEDS: ALBUT/IPRATROP 3MG/0.5MG NEB 3 ML VIAL INH SCH ×2 (15:21→19:57)
--- NOTE | 2017-12-10 19:12 | PULMONARY CONSULTATION ---
DATE OF CONSULTATION: 12/10/2017 REASON FOR CONSULTATION: Severe shortness of breath in a patient with O2-dependent COPD. HISTORY OF PRESENT ILLNESS: A 72-year-old white female was a direct transfer from [facility] by ALS to [facility] on 11/30/2017. The patient was transferred to the ICU and seen by the critical care team. She had been intubated and sedated because of progressive dyspnea, cough and shortness of breath over the past 24 hours. She is on home oxygen with severe COPD and presented with extreme lethargy and the EMS was contacted by the , brought to the ER at [facility] and intubated after failing BiPAP therapy. She was given 2 grams of IV magnesium, aerosolized bronchodilator and placed on Diprivan drip and was found to be PCR influenza A positive. She had a positive troponin, was hydrated and then transferred to our facility. The patient has been on chronic prednisone therapy along with O2, and was administered Tamiflu, and was started on IV vancomycin/Zosyn/Levaquin. She was eventually weaned by the critical care team and sputum culture grew out Pseudomonas aeruginosa full sensitivity pattern, and intermediately sensitive aztreonam. I have been asked to see patient in consultation today. The patient is in telemetry and seems uncomfortable with her breathing. She states she is uncomfortable, cannot be more specific, and is unable to expectorate a significant amount of phlegm. She was started on IV diltiazem because of recurrent atrial fibrillation with a fast ventricular response. She was seen by eJni Benson from palliative care, and patient has been made a DNR. She feels tired and worn out and cannot specify to me the specifics of her care and what she desires in the future except "to feel better." PHYSICAL EXAMINATION: CURRENT VITAL SIGNS: Temperature is 36.8, pulse 86 and regular, respiratory rate 30, O2 sat 95% on 5 liters. SKIN: Without lesion. HEENT: Atraumatic, normocephalic. PERRLA. LUNGS: Scattered rhonchi and wheeze, right base. CARDIAC: Tachycardic rhythm. I do not appreciate a gallop. ABDOMEN: Soft, scaphoid. EXTREMITIES: Trace pedal edema. No clubbing. Peripheral cyanosis. NEUROLOGIC: Intact. No lateralizing signs. LABORATORY DATA: Chest x-ray on 12/07/2017 shows no acute infiltrate, but bibasilar fibrosis with emphysematous changes noted. Blood cultures have been negative. H&H 9.5 and 29, white count 7400, potassium 3.3. No recent ABGs. PTT, INR 2.4. Influenza A PCR positive on 12/01/2017. OVERALL ASSESSMENT: A 72-year-old white female with severe chronic obstructive pulmonary disease, end-stage; presents with acute on chronic hypoxic and hypercarbic respiratory failure with previous influenza viral infection and probable colonization with Pseudomonas aeruginosa. The patient is doing poorly and that she has found it difficult to recover from her period on receiving mechanical ventilator assistance. She is currently on oral Cardizem to control her atrial fibrillation, aerosolized bronchodilator, IV heparin, and oral prednisone. She is no longer on any additional antibiotic therapy. I do not think this patient has significant reversibility, but we will try to reevaluate patient in the morning to see if there has been a change in her clinical status. I will try to make additional recommendations at that time. BERNABE
[2017-12-10] MEDS: SIMVASTATIN 40 MG TAB PO SCH (20:49)
[2017-12-10] MEDS: GUAIFENESIN 600 MG TABCR PO SCH (20:49)
[2017-12-11] VITALS (11 sets, daily range): BP systolic 108–131; BP diastolic 58–66; PULSE 78–105; TEMP 36.9–37.6; O2SAT 92–98
[2017-12-11 04:51] LABS: HEMATOCRIT 28.9 % (37-47); HEMOGLOBIN 9.4 g/dL (12.0-16.0); IG# 0.04 K/uL (0.00-0.02); LYMPH % 9.6 %; LYMPH ABS # 0.68 K/uL (1.2-3.4); MEAN CELL VOLUME 91.7 fL (80-100); MEAN CORPUSCULAR HEMOGLOBIN 29.8 pg (25-34); MEAN CORPUSCULAR HGB CONC 32.5 g/dl (32-36); MEAN PLATELET VOLUME 10.1 fL (7.4-10.4); MONO % 11.3 %; NEUT % 78.5 %; NEUT ABS # 5.57 K/uL (1.4-6.5); PLATELET COUNT 256 K/uL (130-400); RED CELL DISTRIBUTION WIDTH CV 14.4 % (11.5-14.5); RED CELL DISTRIBUTION WIDTH SD 47.8 fL (36.4-46.3); WHITE BLOOD COUNT 7.09 K/uL (4.8-10.8)
[2017-12-11 05:01] LABS: PTT PATIENT 43.3 SECONDS (21.0-31.0)
[2017-12-11 05:08] LABS: CALCIUM 8.6 mg/dl (8.5-10.1); CREATININE 0.5 mg/dl (0.60-1.20); POTASSIUM 3.2 mmol/L (3.5-5.1)
[2017-12-11] MEDS ORDERED: HEPARIN IV BOLUS 2,000 UNIT in SYRINGE 0 ML IV ONE (05:45)
[2017-12-11] MEDS: ALBUT/IPRATROP 3MG/0.5MG NEB 3 ML VIAL INH SCH ×4 (07:27→19:51)
[2017-12-11] MEDS ORDERED: POTASSIUM CHLR 10 MEQ / WTR 10 MEQ in PREMIXED WATER 100 ML IV ONE (08:40)
--- NOTE | 2017-12-11 08:47 | Family Medicine Progress Note ---
Progress Note Date of Service Dec 11, 2017. Subjective Pt evaluation today including: conversation w/ patient Patient says she feels improved overall compared to yesterday, particularly with her breathing. Otherwise she doesn't particularly volunteer any information, but says she's not in any pain and denies any immediate medical concerns. Constitutional: No fever, No chills Respiratory: + cough, + shortness of breath, + dyspnea on exertion Cardiovascular: No chest pain, No edema Abdomen: No pain, No nausea, No vomiting Medications Current Inpatient Medications Medications (Trade) Dose Ordered Sig/Peyman Route Start Time Stop Time Status Last Admin Dose Admin Acetaminophen (Tylenol Tab) 650 mg Q4H PRN PO 11/30/17 22:15 12/30/17 22:14 12/09/17 07:39 650 MG Simvastatin (Zocor Tab) 40 mg HS PO 12/01/17 21:00 12/31/17 20:59 12/10/17 20:49 40 MG Morphine Sulfate (MoRPHine SULFATE INJ) 2 mg Q4H PRN IV 12/03/17 19:30 12/17/17 19:29 12/10/17 20:47 2 MG Clonazepam (Klonopin Tab) 0.5 mg TID PRN PO 12/04/17 08:15 01/03/18 08:14 12/08/17 01:31 0.5 MG Pantoprazole Sodium (Protonix Tab) 40 mg QAM PO 12/05/17 09:00 01/04/18 08:59 12/10/17 08:39 40 MG Citalopram Hydrobromide (celeXA TAB) 40 mg QAM PO 12/05/17 09:00 01/04/18 08:59 12/10/17 08:39 40 MG Lorazepam (Ativan Tab) 0.5 mg TID PRN PO 12/04/17 15:45 01/03/18 15:44 12/10/17 06:00 0.5 MG Prednisone (PredniSONE TAB) 40 mg DAILY PO 12/07/17 09:00 01/06/18 08:59 12/10/17 08:38 40 MG Sodium Chloride ([place] Nasal [place]) 1 sprays PRN PRN NA 12/07/17 16:30 01/06/18 16:29 12/07/17 16:34 1 SPRAYS Heparin Sodium/ Dextrose 500 ml @ 16 mls/hr Q24H PRN IV 12/08/17 21:15 01/07/18 21:14 12/10/17 08:51 15 MLS/HR Docusate Sodium (coLACE CAP) 100 mg BID PO 12/09/17 09:00 01/08/18 08:59 12/10/17 20:49 100 MG Polyethylene (Miralax Powder Packet) 17 gm DAILY PRN PO 12/09/17 08:00 01/08/18 07:59 Albuterol/ Ipratropium (Duoneb) 3 ml QIDR INH 12/10/17 16:00 01/09/18 15:59 12/11/17 07:27 3 ML Albuterol/ Ipratropium (Duoneb) 3 ml Q2H PRN INH 12/10/17 13:00 01/09/18 12:59 Guaifenesin (Mucinex Contr Rel Tab) 1,200 mg Q12 PO 12/10/17 21:00 01/09/18 20:59 12/10/17 20:49 1,200 MG Diltiazem HCl (Cardizem Cd Cap) 300 mg QAM PO 12/11/17 09:00 01/10/18 08:59 Potassium Chloride 10 meq/ Prmx 100 ml @ 100 mls/hr Q1H IV 12/11/17 08:45 12/11/17 11:44 UNV Potassium Chloride 10 meq/ Prmx 100 ml @ 100 mls/hr 0840 ONCE IV 12/11/17 08:40 12/11/17 09:39 UNV Objective Vital Signs Date Time Temp Pulse Resp B/P (MAP) Pulse Ox O2 Delivery O2 Flow Rate FiO2 12/11/17 07:47 36.9 78 20 131/65 (87) 94 12/11/17 07:29 84 22 98 Nasal Cannula 5.0 12/11/17 04:00 Nasal Cannula 5.0 12/11/17 04:00 37.0 85 17 108/58 (75) 98 Nasal Cannula 4.5 12/11/17 00:00 Nasal Cannula 5.0 12/10/17 23:56 37.0 85 16 108/58 (75) 98 Nasal Cannula 4.5 12/10/17 20:00 Nasal Cannula 5.0 12/10/17 19:57 94 22 94 Nasal Cannula 5.0 12/10/17 19:32 37.0 102 16 131/67 (88) 90 12/10/17 16:00 Nasal Cannula 5.0 12/10/17 15:21 86 30 95 Nasal Cannula 5.0 12/10/17 15:07 36.8 79 20 115/68 (84) 95 Nasal Cannula 5.0 Humidified Oxygen 12/10/17 12:00 Nasal Cannula 5.0 12/10/17 11:30 36.8 68 20 103/54 (70) 98 Nasal Cannula 5.0 Physical Exam Notes: General Appearance: Awake, alert & oriented, more comfortable when breathing, speaks a few words at a time, and not in immediate distress. CV: +S1S2 regular, no murmurs. No peripheral edema. Pulm: Decreased breath sounds throughout without focal rales/rhonchi. On nasal cannula oxygen. Abdomen: +BS, soft, non-tender, non-distended. Extremities: No pedal edema or calf tenderness. Neuro: No gross neuro deficits. Lines: Right hand PIV. Bai catheter. Laboratory Results 12/11/17 04:41 Red Blood Count 3.15, Mean Corpuscular Volume 91.7, Mean Corpuscular Hemoglobin 29.8, Mean Corpuscular Hemoglobin Concent 32.5, Mean Platelet Volume 10.1, Neutrophils (%) (Auto) 78.5, Lymphocytes (%) (Auto) 9.6, Monocytes (%) (Auto) 11.3, Eosinophils (%) (Auto) 0.0, Basophils (%) (Auto) 0.0, Neutrophils # (Auto ) 5.57, Lymphocytes # (Auto) 0.68, Monocytes # (Auto) 0.80, Eosinophils # (Auto ) 0.00, Basophils # (Auto) 0.00 12/11/17 04:41 Test 12/11/17 04:41 White Blood Count 7.09 K/uL (4.8-10.8) Red Blood Count 3.15 M/uL (4.2-5.4) Hemoglobin 9.4 g/dL (12.0-16.0) Hematocrit 28.9 % (37-47) Mean Corpuscular Volume 91.7 fL (80-100) Mean Corpuscular Hemoglobin 29.8 pg (25-34) Mean Corpuscular Hemoglobin Concent 32.5 g/dl (32-36) Platelet Count 256 K/uL (130-400) Mean Platelet Volume 10.1 fL (7.4-10.4) Neutrophils (%) (Auto) 78.5 % Lymphocytes (%) (Auto) 9.6 % Monocytes (%) (Auto) 11.3 % Eosinophils (%) (Auto) 0.0 % Basophils (%) (Auto) 0.0 % Neutrophils # (Auto) 5.57 K/uL (1.4-6.5) Lymphocytes # (Auto) 0.68 K/uL (1.2-3.4) Monocytes # (Auto) 0.80 K/uL (0.11-0.59) Eosinophils # (Auto) 0.00 K/uL (0-0.5) Basophils # (Auto) 0.00 K/uL (0-0.2) RDW Standard Deviation 47.8 fL (36.4-46.3) RDW Coefficient of Variation 14.4 % (11.5-14.5) Immature Granulocyte % (Auto) 0.6 % Immature Granulocyte # (Auto) 0.04 K/uL (0.00-0.02) Activated Partial Thromboplast Time 43.3 SECONDS (21.0-31.0) Partial Thromboplastin Ratio 1.7 Anion Gap 4.0 mmol/L (3-11) Est Creatinine Clear Calc Drug Dose 74.9 ml/min Estimated GFR () 112.9 Estimated GFR (Non- 97.4 BUN/Creatinine Ratio 25.6 (10-20) Calcium Level 8.6 mg/dl (8.5-10.1) Iron Level 36 mcg/dl (35-150) Total Iron Binding Capacity 278 mcg/dl (250-450) Ferritin 57.0 ng/ml (8.0-388.0) Assessment and Plan 72 yo female admitted on [id number] for acute respiratory failure requiring intubation and sedation due to a believed COPD exacerbation and Influenza. PMH: COPD on home O2/Chronic respiratory failure, hyperlipidemia, GERD, chronic lower back pain, and depression Acute Hypoxic Hypercapnic Respiratory Failure: Secondary to influenza as well as COPD exacerbation. Is on 4L NC at home, presently on 4.5 to 5 L NC oxygen. Work of breathing improved since placed on scheduled duoneb treatments. On ativan prn for related anxiety. On morphine prn for pain, but added also prn for SOB. Pulmonology today noted her improvement and recommended physical therapy along with ongoing palliative care consultation. COPD exacerbation: Nasal MRSA negative. 23Feb sputum culture was positive for pseudomonas. Has finished a 10 day course of levaquin. 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 On duonebs. On prednisone 40 mg daily (at home is on 10 mg chronically). Continues to have some work of breathing, particularly with any exertion. Patient says she has a nebulizer at home, but it is old. See "Acute Hypoxic Hypercapnic Respiratory Failure" discussion above as well. Influenza: Influenza A positive on 24Feb. Completed course of tamiflu. Atrial Fibrillation: Improved. Troponin elevation to 0.121, since trended downwards, likely due to demand ischemia from tachycardia. On extended-release diltiazem. TSH was normal. Started on apixaban (prior concerns with cost - per her insurance, is $15 a month), will stop heparin on first dose this evening. Normocytic Anemia: Hb 9.4. Monitoring. HLD: On home simvastatin 40 mg. GERD: Increased home dose of protonix to 40 mg daily. Depression/anxiety: On home citalopram 40 mg. Code status: DNR/DNI. Diet: Regular (with soft foods to help with dentition), but poor intake. DVT prophy: Heparin. PT/OT: Recommends rehab. Disbo: Admitted. Palliative care consulted, with ongoing patient and family ( ) discussions. Resident Physician Supervision Note: I interviewed and examined the patient. Discussed with Dr. Marino and agree with findings and plan as documented in the note. Any exceptions or clarifications are listed here: None Patient looks much better today being on scheduled nebulizers. She however still has mild to moderate respiratory distress patient feels she is at her baseline where she frequently is short of breath at home and does wear supplemental oxygen the patient is agreeable to elect palliative care as recommended by pulmonary medicine Her vital signs are temperature 36 and pulse is 70 respiration rate 20 BP 131/65 Her lungs have decreased breath sounds and poor air movement throughout she has pursed lip breathing no overt wheezing Severe to possibly end-stage COPD with exacerbation acute influenza A atrial fibrillation and anemia likely of chronic disease we will continue her prednisone tapering dose inhaled medications on a scheduled basis and moving to apixaban for her atrial fibrillation DVT prevention she has also completed her course of treatment for influenza Documented By: Stanislav Remy Resident Tracking Resident Involvement: Resident Care Provided Care Provided: Adult Hospital Medicine (inpatient)
[2017-12-11] MEDS: PANTOprazole SOD 40 MG TAB PO SCH (08:53)
[2017-12-11] MEDS: DOCUSATE SODIUM 100 MG CAP PO SCH ×2 (08:53→19:58)
[2017-12-11] MEDS: GUAIFENESIN 600 MG TABCR PO SCH ×2 (08:53→19:58)
[2017-12-11] MEDS: DILTIAZEM HCL 300 MG CAPCR PO SCH (08:54)
[2017-12-11] MEDS: CITALOPRAM 20 MG TAB PO SCH (08:54)
[2017-12-11] MEDS: POTASSIUM CHLR 10 MEQ / WTR 10 MEQ in PREMIXED WATER 100 ML IV SCH ×4 (09:30→14:59)
[2017-12-11 12:04] LABS: PTT PATIENT 44.9 SECONDS (21.0-31.0)
--- NOTE | 2017-12-11 12:09 | PULMONARY PROGRESS NOTE ---
DATE: 12/11/2017 SUBJECTIVE: The patient is clearly more comfortable than she was yesterday. She is currently taking a nebulizer treatment with aerosolized bronchodilator. Her was in attendance. She is conversant, smiling. Denies any kind of pleuritic or chest discomfort. She does still appear to be dyspneic with speech, but that is probably her baseline. OBJECTIVE: VITAL SIGNS: Temperature 36.9, pulse between 78 and 102, respiratory rate 22, blood pressure 131/65, O2 sat 93% on 5 liters. SKIN: Without lesion. HEENT: Atraumatic, normocephalic. PERRLA. LUNGS: Distant P&A with no audible wheezes. CARDIAC: Irregularly regular rhythm. I do not appreciate a gallop. ABDOMEN: Soft, scaphoid. No evidence of hepatosplenomegaly. EXTREMITIES: +1 pitting edema. No clubbing. Peripheral cyanosis. NEUROLOGIC: Intact. No lateralizing signs. OVERALL ASSESSMENT: A 72-year-old presented with [id number] hypoxic and hypercarbic respiratory failure who received mechanical ventilator assistance, now appears to be slowly improving. She is a level 5 DNR and I reviewed her medications as of yesterday. She seems to be reasonably well compensated and appears to be improving. She will certainly require extended physical therapy and I agree with palliative care consultation and evaluation.
[2017-12-11] MEDS: APIXABAN 2.5 MG TAB PO SCH ×2 (12:16→19:59)
[2017-12-11] MEDS: LORAZEPAM 0.5 MG TAB PO PRN ×2 (12:23→19:57)
[2017-12-11] MEDS: MoRPHine SULFATE 2 MG/ML CARP IV PRN ×2 (12:24→19:57)
[2017-12-11] MEDS: SIMVASTATIN 40 MG TAB PO SCH (19:58)
[2017-12-12] VITALS (12 sets, daily range): BP systolic 109–150; BP diastolic 55–80; PULSE 71–106; TEMP 36.8–37.6; O2SAT 91–99
[2017-12-12 06:41] LABS: HEMATOCRIT 28.5 % (37-47); HEMOGLOBIN 9.2 g/dL (12.0-16.0); MEAN CELL VOLUME 92.2 fL (80-100); MEAN CORPUSCULAR HEMOGLOBIN 29.8 pg (25-34); MEAN PLATELET VOLUME 9.6 fL (7.4-10.4); PLATELET COUNT 238 K/uL (130-400); RED CELL DISTRIBUTION WIDTH CV 14.9 % (11.5-14.5); WHITE BLOOD COUNT 8.71 K/uL (4.8-10.8)
[2017-12-12 06:44] LABS: MEAN CORPUSCULAR HGB CONC 32.3 g/dl (32-36)
[2017-12-12 07:14] LABS: CALCIUM 8.4 mg/dl (8.5-10.1); CREATININE 0.44 mg/dl (0.60-1.20); POTASSIUM 3.6 mmol/L (3.5-5.1)
[2017-12-12] MEDS: ALBUT/IPRATROP 3MG/0.5MG NEB 3 ML VIAL INH SCH ×3 (07:15→19:45)
[2017-12-12] MEDS: LORAZEPAM 0.5 MG TAB PO PRN ×2 (07:55→20:06)
[2017-12-12] MEDS: DILTIAZEM HCL 300 MG CAPCR PO SCH (07:56)
[2017-12-12] MEDS: GUAIFENESIN 600 MG TABCR PO SCH ×2 (07:57→20:01)
[2017-12-12] MEDS: DOCUSATE SODIUM 100 MG CAP PO SCH ×2 (07:57→20:01)
[2017-12-12] MEDS: PANTOprazole SOD 40 MG TAB PO SCH (07:57)
[2017-12-12] MEDS: APIXABAN 2.5 MG TAB PO SCH ×2 (07:57→20:00)
[2017-12-12] MEDS: CITALOPRAM 20 MG TAB PO SCH (07:57)
--- NOTE | 2017-12-12 08:12 | Family Medicine Progress Note ---
Progress Note Date of Service Dec 12, 2017. Subjective Pt evaluation today including: conversation w/ patient Found patient resting comfortably. Says her breathing feels overall very near her home baseline. Says her cough has improved but is unsure if it is still productive. Says she had a bit more appetite yesterday. She denies any pain or acute concerns, but does not volunteer any information in our discussion. Per nursing notes, she continues to have noted dyspnea with any exertion. Constitutional: No fever, No chills Respiratory: + cough, + shortness of breath, + dyspnea on exertion Cardiovascular: No chest pain, No edema Abdomen: No pain, No nausea, No vomiting Medications Current Inpatient Medications Medications (Trade) Dose Ordered Sig/Peyman Route Start Time Stop Time Status Last Admin Dose Admin Acetaminophen (Tylenol Tab) 650 mg Q4H PRN PO 11/30/17 22:15 12/30/17 22:14 12/09/17 07:39 650 MG Simvastatin (Zocor Tab) 40 mg HS PO 12/01/17 21:00 12/31/17 20:59 12/11/17 19:58 40 MG Morphine Sulfate (MoRPHine SULFATE INJ) 2 mg Q4H PRN IV 12/03/17 19:30 12/17/17 19:29 12/11/17 19:57 2 MG Clonazepam (Klonopin Tab) 0.5 mg TID PRN PO 12/04/17 08:15 01/03/18 08:14 12/08/17 01:31 0.5 MG Pantoprazole Sodium (Protonix Tab) 40 mg QAM PO 12/05/17 09:00 01/04/18 08:59 12/12/17 07:57 40 MG Citalopram Hydrobromide (celeXA TAB) 40 mg QAM PO 12/05/17 09:00 01/04/18 08:59 12/12/17 07:57 40 MG Lorazepam (Ativan Tab) 0.5 mg TID PRN PO 12/04/17 15:45 01/03/18 15:44 12/12/17 07:55 0.5 MG Prednisone (PredniSONE TAB) 40 mg DAILY PO 12/07/17 09:00 01/06/18 08:59 12/12/17 07:57 40 MG Sodium Chloride ([place] Nasal [place]) 1 sprays PRN PRN NA 12/07/17 16:30 01/06/18 16:29 12/07/17 16:34 1 SPRAYS Docusate Sodium (coLACE CAP) 100 mg BID PO 12/09/17 09:00 01/08/18 08:59 12/12/17 07:57 100 MG Polyethylene (Miralax Powder Packet) 17 gm DAILY PRN PO 12/09/17 08:00 01/08/18 07:59 12/12/17 07:56 17 GM Albuterol/ Ipratropium (Duoneb) 3 ml QIDR INH 12/10/17 16:00 01/09/18 15:59 12/12/17 07:15 3 ML Albuterol/ Ipratropium (Duoneb) 3 ml Q2H PRN INH 12/10/17 13:00 01/09/18 12:59 Guaifenesin (Mucinex Contr Rel Tab) 1,200 mg Q12 PO 12/10/17 21:00 01/09/18 20:59 12/12/17 07:57 1,200 MG Diltiazem HCl (Cardizem Cd Cap) 300 mg QAM PO 12/11/17 09:00 01/10/18 08:59 12/12/17 07:56 300 MG Apixaban (Eliquis Tab) 10 mg BID PO 12/11/17 12:00 12/17/17 11:59 12/12/17 07:57 10 MG Objective Vital Signs Date Time Temp Pulse Resp B/P (MAP) Pulse Ox O2 Delivery O2 Flow Rate FiO2 12/12/17 08:06 37.0 105 18 135/65 (88) 93 Nasal Cannula 12/12/17 04:00 99 Nasal Cannula 4.0 12/12/17 03:27 36.8 71 20 137/65 (89) 99 Nasal Cannula 4.0 Humidified Oxygen 12/12/17 00:01 95 Nasal Cannula 4.0 12/11/17 23:30 37.4 89 16 115/60 (78) 95 Nasal Cannula 4.0 12/11/17 20:00 Nasal Cannula 5.0 12/11/17 19:52 87 18 93 Nasal Cannula 4.0 12/11/17 19:30 37.6 95 20 121/66 (84) 93 Nasal Cannula 4.0 12/11/17 16:00 Nasal Cannula 5.0 12/11/17 15:55 37.3 85 20 108/65 (79) 92 Nasal Cannula 4.5 12/11/17 15:34 93 18 97 Nasal Cannula 4.0 12/11/17 12:00 Nasal Cannula 5.0 12/11/17 11:47 37.0 105 19 128/66 (86) 92 Nasal Cannula 4.0 12/11/17 11:24 102 22 93 Nasal Cannula 5.0 Physical Exam Notes: General Appearance: Awake, alert & oriented, continues to appear more comfortable when breathing, speaks a few words at a time, and not in immediate distress. CV: +S1S2 regular, no murmurs. No peripheral edema. Pulm: Decreased breath sounds throughout without focal rales/rhonchi. Some faint end-expiratory wheezing. On nasal cannula oxygen. Abdomen: +BS, soft, non-tender, non-distended. Extremities: No pedal edema or calf tenderness. Neuro: No gross neuro deficits. Lines: Right hand PIV. Bai catheter. Laboratory Results 12/12/17 06:27 12/12/17 06:27 Test 12/11/17 11:21 12/12/17 06:27 Activated Partial Thromboplast Time 44.9 SECONDS (21.0-31.0) Partial Thromboplastin Ratio 1.7 Red Blood Count 3.09 M/uL (4.2-5.4) Mean Corpuscular Volume 92.2 fL (80-100) Mean Corpuscular Hemoglobin 29.8 pg (25-34) Mean Corpuscular Hemoglobin Concent 32.3 g/dl (32-36) RDW Standard Deviation 50.0 fL (36.4-46.3) RDW Coefficient of Variation 14.9 % (11.5-14.5) Mean Platelet Volume 9.6 fL (7.4-10.4) Anion Gap 3.0 mmol/L (3-11) Est Creatinine Clear Calc Drug Dose 85.2 ml/min Estimated GFR () 117.7 Estimated GFR (Non- 101.6 BUN/Creatinine Ratio 26.3 (10-20) Calcium Level 8.4 mg/dl (8.5-10.1) Magnesium Level 1.8 mg/dl (1.8-2.4) Assessment and Plan 72 yo female admitted on [id number] for acute respiratory failure requiring intubation and sedation due to a believed COPD exacerbation and Influenza. PMH: COPD on home O2/Chronic respiratory failure, hyperlipidemia, GERD, chronic lower back pain, and depression Acute Hypoxic Hypercapnic Respiratory Failure: Secondary to influenza as well as COPD exacerbation. Is on 4L NC at home, presently on 4.5 to 5 L NC oxygen. Work of breathing improved since placed on scheduled duoneb treatments. On ativan prn for related anxiety. On morphine prn for pain, but added also prn for SOB. Pulmonology noted her improvement and recommended physical therapy along with ongoing palliative care consultation. COPD exacerbation: Nasal MRSA negative. Feb sputum culture was positive for pseudomonas. Has finished a 10 day course of levaquin. 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 On duonebs. On prednisone 40 mg daily (at home is on 10 mg chronically). Continues to have some work of breathing, particularly with any exertion. Patient says she has a nebulizer at home, but it is old. See "Acute Hypoxic Hypercapnic Respiratory Failure" discussion above as well. Influenza: Influenza A positive on 24Feb. Completed course of tamiflu. Atrial Fibrillation: Improved. Troponin elevation to 0.121, since trended downwards, likely due to demand ischemia from tachycardia. On extended-release diltiazem. TSH was normal. Started on apixaban (prior concerns with cost - per her insurance, is $15 a month). Normocytic Anemia: Hb 9.2. Monitoring. HLD: On home simvastatin 40 mg. GERD: Increased home dose of protonix to 40 mg daily. Depression/anxiety: On home citalopram 40 mg. Palliative care discussion: They note patient has previously discussed being tired and "worn out". On my morning discussion, patient does not quite admit that when asked directly, but also does not deny it. Generally does not seem to want to answer questions about what her overall goals of care are. - Again this morning during attending rounds the patient was encouraged to think about what she would like to do regarding her severe, possibly end-stage COPD. - Working with palliative care on the same. Appreciate their involvement. Code status: DNR/DNI. Diet: Regular (with soft foods to help with dentition). DVT prophy: Apixaban. PT/OT: Recommends rehab. Disbo: Admitted. Resident Physician Supervision Note: I interviewed and examined the patient. Discussed with Dr. Marino and agree with findings and plan as documented in the note. Any exceptions or clarifications are listed here: None The patient continues to slightly improve every day although she is fairly dyspneic and short of breath at baseline she states she is near baseline but still feels somewhat more short of breath than she would expect him to go home. we continue discuss palliative care however the patient states she is not ready to give up and so some fight left in her. She exhibits tachypnea and pursed lip breathing when engaged in conversation this could be from exertion but also from anxiety is when observed sleeping she is not having as much tachypnea Her vital signs temperature 37 pulse 105 respiration 18 BP 131/65 She has tachypnea pursed lip breathing decreased air movements throughout she has less expiratory wheezes then was heard earlier her heart is regular This patient here suffering from severe COPD, acute respiratory failure with hypoxia in the setting of acute influenza, type II LA from atrial fibrillation with rapid response worsened by physiological stressors next Patient is improving with scheduled doses of albuterol and ipratropium, she is completed her course for influenza she remains rate controlled with diltiazem and anticoagulated with apixaban she however is markedly deconditioned and chronically ill and her disposition is in question due to her limited ability to do physical activity Documented By: Stanislav Remy Resident Tracking Resident Involvement: Resident Care Provided Care Provided: Adult Hospital Medicine (inpatient)
[2017-12-12] MEDS: SIMVASTATIN 40 MG TAB PO SCH (20:00)
[2017-12-12] MEDS: MoRPHine SULFATE 2 MG/ML CARP IV PRN (21:10)
[2017-12-13] VITALS (7 sets, daily range): BP systolic 120–135; BP diastolic 60–66; PULSE 79–88; TEMP 36.9–37.2; O2SAT 91–98
[2017-12-13] MEDS: ALBUT/IPRATROP 3MG/0.5MG NEB 3 ML VIAL INH SCH ×4 (07:20→19:10)
--- NOTE | 2017-12-13 08:04 | Family Medicine Progress Note ---
Progress Note Date of Service Dec 13, 2017. Subjective Pt evaluation today including: conversation w/ patient Found patient resting comfortably early this morning initially. She noted then she felt about the same as over the past couple of days, including regarding her SOB. Later in the AM on rounds she said she was "not very good today" with some increased feeling like it was hard to breathe. Says that she is working with her on medicare paperwork to help with future hospice, though she would like to get some acute rehab first. Otherwise she denies any acute concerns. Constitutional: No fever, No chills Respiratory: + cough, + shortness of breath, + dyspnea on exertion Cardiovascular: No chest pain, No edema Abdomen: No pain, No nausea, No vomiting, No diarrhea Medications Current Inpatient Medications Medications (Trade) Dose Ordered Sig/Peyman Route Start Time Stop Time Status Last Admin Dose Admin Acetaminophen (Tylenol Tab) 650 mg Q4H PRN PO 11/30/17 22:15 12/30/17 22:14 12/09/17 07:39 650 MG Simvastatin (Zocor Tab) 40 mg HS PO 12/01/17 21:00 12/31/17 20:59 12/12/17 20:00 40 MG Morphine Sulfate (MoRPHine SULFATE INJ) 2 mg Q4H PRN IV 12/03/17 19:30 12/17/17 19:29 12/12/17 21:10 2 MG Clonazepam (Klonopin Tab) 0.5 mg TID PRN PO 12/04/17 08:15 01/03/18 08:14 12/08/17 01:31 0.5 MG Pantoprazole Sodium (Protonix Tab) 40 mg QAM PO 12/05/17 09:00 01/04/18 08:59 12/12/17 07:57 40 MG Citalopram Hydrobromide (celeXA TAB) 40 mg QAM PO 12/05/17 09:00 01/04/18 08:59 12/12/17 07:57 40 MG Lorazepam (Ativan Tab) 0.5 mg TID PRN PO 12/04/17 15:45 01/03/18 15:44 12/12/17 20:06 0.5 MG Prednisone (PredniSONE TAB) 40 mg DAILY PO 12/07/17 09:00 4/1/18 08:59 12/12/17 07:57 40 MG Sodium Chloride ([place] Nasal [place]) 1 sprays PRN PRN NA 12/07/17 16:30 01/06/18 16:29 12/07/17 16:34 1 SPRAYS Docusate Sodium (coLACE CAP) 100 mg BID PO 12/09/17 09:00 01/08/18 08:59 12/12/17 20:01 100 MG Polyethylene (Miralax Powder Packet) 17 gm DAILY PRN PO 12/09/17 08:00 01/08/18 07:59 12/12/17 07:56 17 GM Albuterol/ Ipratropium (Duoneb) 3 ml QIDR INH 12/10/17 16:00 01/09/18 15:59 12/13/17 07:20 3 ML Albuterol/ Ipratropium (Duoneb) 3 ml Q2H PRN INH 12/10/17 13:00 01/09/18 12:59 Guaifenesin (Mucinex Contr Rel Tab) 1,200 mg Q12 PO 12/10/17 21:00 01/09/18 20:59 12/12/17 20:01 1,200 MG Diltiazem HCl (Cardizem Cd Cap) 300 mg QAM PO 12/11/17 09:00 01/10/18 08:59 12/12/17 07:56 300 MG Apixaban (Eliquis Tab) 10 mg BID PO 12/11/17 12:00 12/17/17 11:59 12/12/17 20:00 10 MG Objective Vital Signs Date Time Temp Pulse Resp B/P (MAP) Pulse Ox O2 Delivery O2 Flow Rate FiO2 12/13/17 07:20 79 18 98 Nasal Cannula 4.0 12/13/17 07:13 37.2 83 20 135/66 (89) 96 Nasal Cannula 3.0 12/13/17 00:00 Nasal Cannula 3.0 12/12/17 23:55 37.6 82 20 125/80 (95) 96 2.0 12/12/17 19:45 78 18 95 Nasal Cannula 4.0 12/12/17 16:00 91 Nasal Cannula 3.0 96 12/12/17 15:49 37.4 89 20 109/55 (73) 91 Nasal Cannula 3.0 12/12/17 13:00 Nasal Cannula 3.0 12/12/17 11:43 36.8 106 26 150/66 (94) 93 Nasal Cannula 3.0 12/12/17 11:21 37.0 94 18 93 4.0 12/12/17 11:20 94 18 93 Nasal Cannula 4.0 12/12/17 08:06 37.0 105 18 135/65 (88) 93 Nasal Cannula Physical Exam Notes: General Appearance: Awake, alert & oriented, continues to appear more comfortable when breathing, speaks a few words at a time, and not in immediate distress. CV: +S1S2 regular, no murmurs. No peripheral edema. Pulm: Decreased breath sounds throughout without focal rales/rhonchi. Some faint end-expiratory wheezing. On nasal cannula oxygen. Abdomen: +BS, soft, non-tender, non-distended. Extremities: No pedal edema or calf tenderness. Neuro: No gross neuro deficits. Lines: Right hand PIV. Bai catheter. Assessment and Plan 72 yo female admitted on [id number] for acute respiratory failure requiring intubation and sedation due to a believed COPD exacerbation and Influenza. PMH: COPD on home O2/Chronic respiratory failure, hyperlipidemia, GERD, chronic lower back pain, and depression Acute Hypoxic Hypercapnic Respiratory Failure: Secondary to influenza as well as COPD exacerbation. Is on 4L NC at home, presently on 4.5 to 5 L NC oxygen. Work of breathing improved since placed on scheduled duoneb treatments. On ativan prn for related anxiety. On morphine prn for pain, but added also prn for SOB. Pulmonology noted her improvement and recommended physical therapy along with ongoing palliative care consultation. COPD exacerbation: Nasal MRSA negative. 23Feb sputum culture was positive for pseudomonas. Has finished a 10 day course of levaquin. 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 On duonebs. On prednisone 40 mg daily (at home is on 10 mg chronically). Continues work of breathing, particularly with any exertion, which is rather unchanged over past 48 hours. Likely has severe to end-stage COPD at this point. Patient says she has a nebulizer at home, but it is old. See "Acute Hypoxic Hypercapnic Respiratory Failure" discussion above as well. - Added roxinol prn for SOB or pain. Influenza: Influenza A positive on 24Feb. Completed course of tamiflu. Atrial Fibrillation: Improved. Troponin elevation to 0.121, since trended downwards, likely due to demand ischemia from tachycardia. On extended-release diltiazem. TSH was normal. Started on apixaban. Normocytic Anemia: Latest Hb 9.2. Monitoring. HLD: On home simvastatin 40 mg. GERD: Increased home dose of protonix to 40 mg daily. Depression/anxiety: On home citalopram 40 mg. Also on ativan prn as noted above. Palliative care discussion: Patient would like to try rehab (SNF) before pursuing hospice care. Has related financial concerns. - Working with palliative care on the same. Appreciate their involvement. Code status: DNR/DNI. Diet: Regular (with soft foods to help with dentition). DVT prophy: Apixaban. PT/OT: Recommends rehab. Disbo: Admitted. Resident Physician Supervision Note: I interviewed and examined the patient. Discussed with Dr. Marino and agree with findings and plan as documented in the note. Any exceptions or clarifications are listed here: None This patient has having a rough day today her breathing is more challenged she did speak with palliative care and we are agree with adding an oral opiate to try to reduce her air hunger, her eventual placement in a skilled facility is difficult as she is markedly in mild respiratory distress almost all day and this may make the comfort level of her at a nursing facility, question less she would be placed on palliative care Vital signs show temp 37 2 pulse 79 respiration 18 BP 135/66 physical exam shows her to be in respiratory distress with pursed lip breathing and tachypnea she says she feels worse today her lungs sound to be more rhonchorous with some expiratory wheezes Severe to almost end-stage COPD which is oxygen dependent which is not improved greatly we are continuing to work with her palliative care services adding an oral opiate agent to reduce her air hunger continue her nebulized treatments, will add a long-acting beta agonist at this time and continue look for placement in a custodial facility Documented By: Stanislav Remy Resident Tracking Resident Involvement: Resident Care Provided Care Provided: Adult Hospital Medicine (inpatient)
[2017-12-13] MEDS: GUAIFENESIN 600 MG TABCR PO SCH ×2 (08:05→21:07)
[2017-12-13] MEDS: PANTOprazole SOD 40 MG TAB PO SCH (08:05)
[2017-12-13] MEDS: CITALOPRAM 20 MG TAB PO SCH (08:05)
[2017-12-13] MEDS: DOCUSATE SODIUM 100 MG CAP PO SCH ×2 (08:05→21:06)
[2017-12-13] MEDS: APIXABAN 2.5 MG TAB PO SCH ×2 (08:05→21:06)
[2017-12-13] MEDS: DILTIAZEM HCL 300 MG CAPCR PO SCH (08:06)
--- NOTE | 2017-12-13 11:31 | Palliative Care Progress Note ---
Palliative Care Progress Note Date of Service Dec 13, 2017. Subjective Pt evaluation today including: conversation w/ patient, conversation w/ family , physical exam, chart review, conversation w/ sales consultant residential manager (Dr. Marino, Dr. Remy), review of inpatient medication list Pain: 0/10 PO Intake: tolerating diet Voiding: kat catheter in place Patient is much more awake and alert today. Still visibly short of breath at rest. Patient does not feel she has much rehab potential. Had a small nosebleed this morning and now her nose is "clogged." Her oxygen was humidified when she was on the second floor, but it hasn't been since she moved to 4th floor. I did ask her nurse to place humidification. Discussed goals of care and discharge planning. I also called patient's to discuss along with the adult protective caseworker. See plan below. Review of Systems Constitutional: + weakness ENT: No trouble swallowing Respiratory: + cough, + sputum, + shortness of breath, + dyspnea at rest Cardiac: No chest pain, No edema Abdomen: No pain, No nausea, No vomiting Female : No problem reported Psychiatric: + anxiety, No depression symptoms Objective Vital Signs Date Time Temp Pulse Resp B/P (MAP) Pulse Ox O2 Delivery O2 Flow Rate FiO2 12/13/17 08:30 Nasal Cannula 4.0 12/13/17 07:20 79 18 98 Nasal Cannula 4.0 12/13/17 07:13 37.2 83 20 135/66 (89) 96 Nasal Cannula 3.0 12/13/17 00:00 Nasal Cannula 3.0 12/12/17 23:55 37.6 82 20 125/80 (95) 96 2.0 12/12/17 19:45 78 18 95 Nasal Cannula 4.0 12/12/17 16:00 91 Nasal Cannula 3.0 96 12/12/17 15:49 37.4 89 20 109/55 (73) 91 Nasal Cannula 3.0 12/12/17 13:00 Nasal Cannula 3.0 12/12/17 11:43 36.8 106 26 150/66 (94) 93 Nasal Cannula 3.0 12/12/17 11:21 37.0 94 18 93 4.0 12/12/17 11:20 94 18 93 Nasal Cannula 4.0 Physical Exam General Appearance: no apparent distress, + thin ENT: hearing grossly normal Neck: supple, no JVD Respiratory/Chest: no respiratory distress, + accessory muscle use, + rhonchi ( coarse), + pertinent finding (SOB at rest') Cardiovascular: regular rate, rhythm, no edema Abdomen: normal bowel sounds, non tender, soft Neurologic/Psychiatric: alert, normal mood/affect, oriented x 3 Assessment and Plan Problem list: SOB/VIVEROS Acute on chronic respiratory failure s/p intubation and extubation Severe COPD with exacerbation, on home O2 Influenza A Afib with RVR- converted to NSR Goals of care Palliative care recs: -Patient is DNR. -Had lengthy discussion about goals of care. Patient is uncertain of her rehab potential, but would like to give it a try. -We discussed transitioning to hospice after her skilled days and patient states she would like to do so. She did want me to call her , Pranay, and talk with him about this as well. -I called Yuri and spoke and discussed transitioning to hospice care after skilled days at SNF. He agreed with patient's wishes. He and patient are both concerned about finances, so they will be applying for medicaid once patient is at SNF. requested referrals to [facility] in [place]. -Yuri will be in later today and I will complete a POLST form with patient while he is here. -Recommend starting Roxanol 5-10mg PO/SL Q3h PRN pain or SOB. -Continue clonazepam. Total time spent 35 minutes with >50% of time spent with patient and family counseling and discussing goals/plan of care. Total time spent 25 minutes with >50% of time spent with patient counseling/ discussing goals of care. Palliative Performance Scale: 40 % Continued [facility] stay due to: multiple IV medications needed Discharge planning: uncertain
[2017-12-13] MEDS ORDERED: MoRPHine SULFATE 10 MG/0.5 ML UDP PO PRN (15:00)
[2017-12-13] MEDS: FORMOTEROL FUMA NEBULIZER SOLN 20 MCG/2 ML VIAL INH SCH (19:10)
[2017-12-13] MEDS: SIMVASTATIN 40 MG TAB PO SCH (21:06)
[2017-12-14 00:16] VITALS: BP 132/56; PULSE 82; TEMP 37.3; O2SAT 97
[2017-12-14 04:49] LABS: HEMATOCRIT 27.9 % (37-47); MEAN CELL VOLUME 92.4 fL (80-100); MEAN CORPUSCULAR HEMOGLOBIN 29.8 pg (25-34); MEAN PLATELET VOLUME 10.1 fL (7.4-10.4); PLATELET COUNT 248 K/uL (130-400); RED CELL DISTRIBUTION WIDTH CV 14.9 % (11.5-14.5); RED CELL DISTRIBUTION WIDTH SD 50.1 fL (36.4-46.3); WHITE BLOOD COUNT 7.58 K/uL (4.8-10.8)
[2017-12-14 04:55] LABS: MEAN CORPUSCULAR HGB CONC 32.3 g/dl (32-36)
[2017-12-14 07:17] VITALS: PULSE 88; O2SAT 98
[2017-12-14] MEDS: FORMOTEROL FUMA NEBULIZER SOLN 20 MCG/2 ML VIAL INH SCH (07:17)
[2017-12-14] MEDS: ALBUT/IPRATROP 3MG/0.5MG NEB 3 ML VIAL INH SCH ×3 (07:17→14:55)
[2017-12-14 07:18] VITALS: BP 160/62; PULSE 81; TEMP 37.4; O2SAT 98
[2017-12-14] MEDS: GUAIFENESIN 600 MG TABCR PO SCH (07:31)
[2017-12-14] MEDS: PANTOprazole SOD 40 MG TAB PO SCH (07:31)
[2017-12-14] MEDS: DOCUSATE SODIUM 100 MG CAP PO SCH (07:32)
[2017-12-14] MEDS: CITALOPRAM 20 MG TAB PO SCH (07:32)
[2017-12-14] MEDS: DILTIAZEM HCL 300 MG CAPCR PO SCH (07:32)
[2017-12-14] MEDS: APIXABAN 2.5 MG TAB PO SCH (07:32)
[2017-12-14] MEDS ORDERED: PRFINS INH (09:28)
[2017-12-14] MEDS ORDERED: IPRASOL4 INH ×2 (09:28)
[2017-12-14] MEDS ORDERED: APIX1TAB3 PO (09:33)
[2017-12-14] MEDS ORDERED: RXNS10 PO (09:38)
[2017-12-14] MEDS ORDERED: ATV5 PO (09:38)
[2017-12-14] MEDS ORDERED: CLC100 PO (09:38)
--- NOTE | 2017-12-14 09:47 | Discharge Instructions ---
Discharge Instructions Date of Service Dec 14, 2017. Admission Reason for Admission: Hypercapnic Respiratory Failure, Flu Positive Discharge Discharge Diagnosis / Problem: Acute hypercapnic respiratory failure, COPD Discharge Goals Goal(s): Decrease discomfort, Improve function Activity Recommendations Activity Limitations: per Instructions/Follow-up section . Instructions / Follow-Up Instructions / Follow-Up You were admitted to the hospital for difficulty breathing, requiring intubation for a brief time. This is very likely related to having influenza as well as your ongoing COPD. - You are being discharged to [facility] for further care. They will likely continue the breathing medications you were started on here in the hospital. - Please continue to work with your healthcare team over there to improve your overall function. We understand you would like to go on hospice following this. - Please continue to work with your primary care provider as well as the palliative care team going forward. You are welcome to return to the emergency department for any acute concerns that have not been covered by your care plan with them. Current Hospital Diet Patient's current hospital diet: Regular Diet Discharge Diet Recommended Diet: Regular Diet Procedures Procedures Performed: Multiple chest x-rays. Pending Studies Studies pending at discharge: no Medical Emergencies . Who to Call and When: Medical Emergencies: If at any time you feel your situation is an emergency, please call 911 immediately. . Non-Emergent Contact Non-Emergency issues call your: Primary Care Provider .
[2017-12-14 11:12] VITALS: PULSE 95; O2SAT 95
[2017-12-14] MEDS ORDERED: PRED10TA PO (12:44)
[2017-12-14 13:37] VITALS: BP 160/62; PULSE 95; TEMP 37.4; O2SAT 95
[2017-12-14 14:55] VITALS: PULSE 102; O2SAT 98
--- NOTE | 2017-12-14 17:32 | Discharge Summary ---
Discharge Summary Date of Service Dec 14, 2017. Discharge Summary Admission Date: Nov 30, 2017 at 21:43 Discharge Date: Dec 14, 2017 Discharge Disposition: long term facility Principal Diagnosis: Acute hypoxic hypercapnic respiratory failure Problems/Secondary Diagnoses: - COPD exacerbation - Influenza A positive - Atrial fibrillation - Normocytic anemia Immunizations: Have You Had Influenza Vaccine: Yes History of Tetanus Vaccine?: Yes History of Pneumococcal: Yes Pneumococcal Date: Jun 24, 2008 History of Hepatitis B Vaccine: No Procedures: [id number] - CHEST ONE VIEW PORTABLE IMPRESSION: 1. Emphysema 2. The mehnaz is difficult to visualize, but the endotracheal tube is suspected to be approximately 5 cm above the mehnaz [id number] - CHEST ONE VIEW PORTABLE FINDINGS: Tip of nasogastric tube is below lower aspect of image but at least within the proximal body of the stomach. The tip of the endotracheal tube is 3.8 cm above the mehnaz. There is no pneumothorax or pleural effusion. Emphysema is noted. Cardiac size is normal. Mediastinal contours are normal. Minimal right basilar opacity favors atelectasis. There is no consolidation. There is an old proximal left humeral fracture. IMPRESSION: 1. Satisfactory positioning of lines and tubes. 2. Emphysema. No consolidation or pneumothorax. [id number] - CHEST ONE VIEW PORTABLE IMPRESSION: 1. Severe emphysema 2. No evidence of lobar consolidation 3. Stable bibasilar densities, likely atelectatic [id number] ONE VIEW PORTABLE IMPRESSION: Interval extubation. Emphysematous change. Chronic basilar fibrosis. No change from the prior study other than extubation. Consultations: Palliative care Pulmonary Critical care Medication Reconciliation New Medications: Apixaban (Eliquis) 5 Mg Tab 5 MG PO BID for 30 Days, #60 TAB Needs 10 mg BID through 12Mar, then back to 5 mg BID ongoing. Docusate Sodium (Docusate Sodium) 100 Mg Cap 100 MG PO BID for 30 Days, #60 CAP 0 Refills Formoterol Fumarate (Perforomist) 20 Mcg/2 Ml Nebu 20 MCG INH BIDR for 30 Days, #60 UNIT 0 Refills Ipratropium-Albuterol (Duoneb) 3 Ml Nebu 3 ML INH QIDR for 30 Days, #120 UNIT 0 Refills Ipratropium-Albuterol (Duoneb) 3 Ml Nebu 3 ML INH Q2H PRN for SOB/WHEEZING for 30 Days, #60 UNIT 0 Refills Lorazepam (Lorazepam) 0.5 Mg Tab 0.5 MG PO TID PRN for Anxiety for 30 Days, #30 TAB 0 Refills Morphine Sulfate (Morphine Sulfate) 10 Mg/0.5 Ml Soln 10 MG PO Q3H PRN for Shortness of Breath for 30 Days, #30 ML 0 Refills PRN SOB or pain Prednisone Tab (Prednisone) 10 Mg Tab 10 MG PO DAILY for 30 Days, #51 TAB Take 30 mg from 10-16Mar, 20 mg from 17-23Mar, then 10 mg ongoing after that. Continued Medications: Cholecalciferol (Vitamin D3) 2,000 Unit Cap 1 CAP PO DAILY for 30 Days, #30 CAP 3 Refills Citalopram (Citalopram Hydrobromide) 40 Mg Tab 1 TAB PO DAILY for 90 Days, #90 TAB 1 Refill Ibuprofen (Advil) 200 Mg Tab 200 MG PO UD, TAB Multiple Vitamins W/ Minerals (Centrum) 1 Tab Tab 1 TAB PO DAILY Omeprazole (Prilosec) 20 Mg Capcr 20 MG PO DAILY, CAP Pregabalin (Lyrica) 50 Mg Cap 50 MG PO BID, CAP Simvastatin (Simvastatin) 40 Mg Tab 1 TAB PO HS Discontinued Medications: Prednisone (Prednisone) 10 Mg Tab DAILY Discharge Exam General Appearance: Awake, alert & oriented, relatively comfortable speaking a few words at a time, and not in immediate distress. Appears perhaps a bit better than prior day's exams. CV: +S1S2 regular, no murmurs. No peripheral edema. Pulm: Decreased breath sounds throughout without focal rales/rhonchi. Expiratory wheezing. On nasal cannula oxygen. Abdomen: +BS, soft, non-tender, non-distended. Extremities: No pedal edema or calf tenderness. Neuro: No gross neuro deficits. Review of Systems: Constitutional: No fever, No chills Respiratory: + cough, + shortness of breath, + dyspnea on exertion, + dyspnea at rest Cardiovascular: No chest pain, No edema Abdomen: No nausea, No vomiting, No diarrhea Genitourinary - Female: No dysuria Hospital Course 72 yo female admitted on [id number] for acute respiratory failure requiring intubation and sedation due to a believed COPD exacerbation and Influenza. PMH: COPD on home O2/Chronic respiratory failure, hyperlipidemia, GERD, chronic lower back pain, and depression Acute Hypoxic Hypercapnic Respiratory Failure: Secondary to influenza as well as COPD exacerbation. Is on 4L NC at home, presently on 4.5 to 5 L NC oxygen. Work of breathing improved since placed on scheduled duoneb treatments. On ativan prn for related anxiety. Pulmonology noted her improvement and recommended physical therapy along with ongoing palliative care consultation. Added formoterol on with some initial improvement overnight prior to discharge as well, so recommended continuing for now. COPD exacerbation: Nasal MRSA negative. 23Feb sputum culture was positive for pseudomonas. Has finished a 10 day course of levaquin. 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 On duonebs. started on prednisone 40 mg daily (at home is on 10 mg chronically). Continues to have some work of breathing, particularly with any exertion. Patient says she has a nebulizer at home, but it is old. See "Acute Hypoxic Hypercapnic Respiratory Failure" discussion above as well. - Upon discharge, began a taper of 10 mg per week. Thus start on 30 mg on . - Added roxanol prn for some air hunger symptoms. Influenza: Influenza A positive on 24Feb. Completed course of tamiflu. Atrial Fibrillation: Improved. Troponin elevation to 0.121, since trended downwards, likely due to demand ischemia from tachycardia. On extended-release diltiazem. TSH was normal. started on apixaban (prior concerns with cost - per her insurance, is $15 a month). Normocytic Anemia: Max Hb in hospital was 12.0, but mostly around low 9's. Stable. HLD: On home simvastatin 40 mg. No acute issues. GERD: Increased home dose of protonix to 40 mg daily. No acute issues. Depression/anxiety: On home citalopram 40 mg. No acute issues. Code status: DNR/DNI. Total Time Spent: Greater than 30 minutes This includes examination of the patient, discharge planning, medication reconciliation, and communication with other providers. Discharge Instructions Please refer to the electronic Patient Visit Report (Discharge Instructions) for additional information. Additional Copies To Arthur Srivastava M.D. Resident Tracking Resident Involvement: Resident Care Provided Care Provided: Adult Hospital Medicine (inpatient )
== END 2017-12-14 14:25 | DRG 208 ==
LOC: C.MSICU 21:43 → ENRESERV 12-04 15:32 → C.MS2W 12-04 15:54 → ENRESERV 12-07 10:42 → C.2T 12-07 11:07 → ENRESERV 12-12 11:02 → C.MS4W 12-12 11:41
PROVIDERS: ADMIT Internal Medicine; ATTEND Family Medicine
PROC: 5A1945Z Respiratory Ventilation, 24-96 Consecutive Hours (ICD-10-PCS; principal; 2017-11-30)
DX: J10.1 Influenza due to other identified influenza virus with other respiratory manifestations (principal); J96.21 Acute and chronic respiratory failure with hypoxia; J96.22 Acute and chronic respiratory failure with hypercapnia; J44.1 Chronic obstructive pulmonary disease with (acute) exacerbation; R06.89 Other abnormalities of breathing; Z99.81 Dependence on supplemental oxygen; F17.200 Nicotine dependence, unspecified, uncomplicated; D64.9 Anemia, unspecified; E87.8 Other disorders of electrolyte and fluid balance, not elsewhere classified; R10.9 Unspecified abdominal pain; I48.91 Unspecified atrial fibrillation; E78.5 Hyperlipidemia, unspecified; K21.9 Gastro-esophageal reflux disease without esophagitis; F32.9 Major depressive disorder, single episode, unspecified; F41.9 Anxiety disorder, unspecified; G89.29 Other chronic pain; M54.5 Low back pain; Z66 Do not resuscitate; Z79.1 Long term (current) use of non-steroidal anti-inflammatories (NSAID); Z79.52 Long term (current) use of systemic steroids; Z79.899 Other long term (current) drug therapy